=== PATIENT | female | born 1945 | race Caucasian/White ===

== ENCOUNTER 2018-01-27 23:27 | Observation (INO) | payer OTHER ==
[2018-01-28] MEDS ORDERED: ASPIRIN 81 MG CHEWABLE TABLETS PO ONE (00:01)
--- NOTE | 2018-01-28 00:14 | PDOC ---
History of Present Illness - General Chief Complaint: Chest Pain Stated Complaint: CHEST PAIN Time Seen by Provider: 01/27/18 23:47 History Source: Patient - History of Present Illness Initial Comments: 01/28/18 00:16 72 year old female with 2 episode of sharp chest pain today. reports slight nausea. denies weakness, dizziness, vomiting, abdominal pain, urinary symptoms fever/ chills. denies previous cardiac work ups Pmhx: HTN, DM, hypothyroidism, hypercholestremia. PMD: Dr. gar ( [place]) Past History - Past Medical History Allergies/Adverse Reactions: Allergies Allergy/AdvReac Type Severity Reaction Status Date / Time No Known Allergies Allergy Verified 01/28/18 00:13 Home Medications: Ambulatory Orders Apixaban [Eliquis] 5 mg PO BID 30 Days #60 tablet 01/28/18 Aspirin [ASA -] 81 mg PO DAILY 01/28/18 Gabapentin [Neurontin] 300 mg PO BID 01/28/18 Insulin Lispro [Humalog] 40 unit SQ DAILY 01/28/18 Levothyroxine Sodium [Synthroid] 75 mcg PO DAILY 01/28/18 Metoprolol Tartrate 50 mg PO BID 30 Days #60 tablet 01/28/18 Omeprazole 20 mg PO BID 01/28/18 Ramipril 5 mg PO DAILY 01/28/18 Simvastatin [Zocor -] 40 mg PO HS 01/28/18 Other medical history: EDVIN: 2010 Review of Systems - Review of Systems Able to Perform ROS?: Yes Is the patient limited Bulgarian proficient: No Constitutional: No: Symptoms Reported, See HPI, Chills, Diaphoresis, Fever, Loss of Appetite, Malaise, Night Sweats, Weakness, Weight Stable, Unintentional Wgt. Loss, Unexplained wgt Loss, Other Respiratory: No: Symptoms reported, See HPI, Cough, Orthopnea, Shortness of Breath, SOB with Exertion, SOB at Rest, Stridor, Wheezing, Productive cough, Hemoptysis, Other Cardiac (ROS): Yes: Chest Pain. No: Symptoms Reported, See HPI, Edema, Irregular Heart Rate, Lightheadedness, Palpitations, Syncope, Chest Tightness, Other ABD/GI: Yes: Nausea. No: Symptoms Reported, See HPI, Abdominal Distended, Abd. Pain w/ defecation, Blood Streaked Bowels, Constipated, Diarrhea, Difficulty Swallowing, Poor Appetite, Poor Fluid Intake, Rectal Bleeding, Vomiting, Indigestion, Abdominal cramping, Tarry Stools, Other Neurological: No: Symptoms reported, See HPI, Headache, Numbness, Paresthesia, Pre-Existing Deficit, Seizure, Tingling, Tremors, Weakness, Unsteady Gait, Ataxia, Dizziness, Other *Physical Exam - Vital Signs Last Vital Signs Temp Pulse Resp BP Pulse Ox 98.1 F 83 18 130/73 100 01/28/18 06:29 01/28/18 17:22 01/28/18 17:22 01/28/18 17:22 01/28/18 17:22 - Physical Exam General Appearance: Yes: Appropriately Dressed Respiratory/Chest: positive: Lungs Clear, Normal Breath Sounds Cardiovascular: positive: Regular Rhythm, Regular Rate Heart Score/ECG Review - History History: Slightly suspicious - Electrocardiogram EKG: Non specific repolarization disturbance - Age Age: >/= 65 - Risk Factors Risk Factors Heart Score: Yes Hx Hypertension, Yes Hx Diabetes Based on the list above the patient has:: 1-2 risk factors - Troponin Troponin: </= normal limit - Score Heart Score - Total: 4 - ECG Intrepretation Rhythm: Regular Rhythm Comment:: 01/28/18 00:27 Sinus rhythm with marked sinus arrythmia; nonspecific ST abnormality ED Treatment Course - LABORATORY CBC & Chemistry Diagram: 01/28/18 00:27 01/28/18 06:00 - ADDITIONAL ORDERS Additional order review: 01/28/18 01/28/18 00:27 00:18 RBC 4.51 MCV 83.8 MCHC 35.7 RDW 13.7 MPV 9.0 Neutrophils % 72.9 Lymphocytes % 18.2 Monocytes % 7.9 Eosinophils % 0.6 Basophils % 0.4 POC Glucometer [id number] - RADIOLOGY Radiology Studies Ordered: Category Date Time Status CHEST PA & LAT [RAD] Stat Radiology 01/28/18 00:01 Completed - Medications Given in the ED: ED Medications Discontinued Medications Generic Name Dose Route Start Last Admin Trade Name Freq PRN Reason Stop Dose Admin Aspirin 162 mg 01/28/18 00:01 01/28/18 00:14 Asa - PO 01/28/18 00:02 162 mg ONCE ONE Administration Heparin Sodium (Porcine) 5,000 unit 01/28/18 06:00 01/28/18 14:08 Heparin - SQ Not Given TID [facility] Insulin Aspart 1 vial 01/28/18 07:00 01/28/18 13:36 Novolog Vial Sliding Scale - SQ Not Given ACHS [facility] Protocol Regadenoson 0.4 mg 01/28/18 11:00 01/28/18 12:35 Lexiscan IVPUSH 01/28/18 11:01 Not Given ONCE ONE Medical Decision Making - Medical Decision Making 01/28/18 00:27 A: chest pain P' cbc cmp EKG chest xray Heart score 4. will place patient in observation 01/28/18 01:35 01/28/18 02:[address] Catalan / Dr. poe *DC/Admit/Observation/Transfer Diagnosis at time of Disposition: Chest pain Qualifiers: Chest pain type: unspecified Qualified Code(s): R07.9 - Chest pain, unspecified - Discharge Dispostion Condition at time of disposition: Stable Decision to Admit order: Yes - Prescriptions - Referrals - Patient Instructions - Post Discharge Activity
[2018-01-28 00:42] LABS: BASO % 0.4 % (0-2.0); EOS % 0.6 % (0-4.5); HEMATOCRIT 37.8 % (32.4-45.2); HEMOGLOBIN 13.5 GM/dL (10.7-15.3); LYMPH % 18.2 % (8-40); MCH 29.9 pg (25.7-33.7); MCHC 35.7 g/dl (32.0-36.0); MEAN CELL VOLUME 83.8 fl (80-96); MONO % 7.9 % (3.8-10.2); NEUT % 72.9 % (42.8-82.8); PLATELET COUNT 197 K/MM3 (134-434); RBC 4.51 M/mm3 (3.60-5.2); RDW 13.7 % (11.6-15.6); WHITE BLOOD COUNT 7.6 K/mm3 (4.0-10.0)
[2018-01-28 00:57] LABS: INR 0.94 (0.83-1.09); PROTHROMBIN TIME (PATIENT) 11.1 SEC (9.7-13.0)
[2018-01-28 01:09] LABS: ALBUMIN 3.9 g/dl (3.4-5.0); ALK PHOS 115 U/L (45-117); ANION GAP 7 MMOL/L (8-16); BILIRUBIN,TOTAL 0.4 mg/dL (0.2-1); BLOOD UREA NITROGEN 29 mg/dL (7-18); CALCIUM 9.2 mg/dL (8.5-10.1); CHLORIDE 101 mmol/L (98-107); CO2 28 mmol/L (21-32); CREATININE 1.4 mg/dL (0.55-1.3); GLUCOSE,RANDOM 126 mg/dL (74-106); MAGNESIUM 2.2 mg/dL (1.8-2.4); N-TERMINAL BNP 243.6 pg/ml (5-125); POTASSIUM 4.4 mmol/L (3.5-5.1); SGOT/AST 23 U/L (15-37); SGPT/ALT 35 U/L (13-61); SODIUM 136 mmol/L (136-145); TOT PROT 7.7 g/dl (6.4-8.2)
--- NOTE | 2018-01-28 01:59 | PN ---
Teaching Attending Note Name of Resident: Demetrio Spence ATTENDING PHYSICIAN STATEMENT I saw and evaluated the patient. I reviewed the resident's note and discussed the case with the resident. I agree with the resident's findings and plan as documented. SUBJECTIVE: Patient is a 72 year old woman with PMH of HTN, DM, hypothyroidism, hypercholestremia who presents after 2 episodes of sharp chest pain today. Reports slight nausea. Denies weakness, dizziness, vomiting, abdominal pain, urinary symptoms, fever or chills. No previous cardiac work up. OBJECTIVE: Alert Vital Signs Period Temp Pulse Resp BP Sys/Page Pulse Ox Last 24 Hr 97.9 F 84 18 146/91 99 HEENT: No Jaundice, eye redness or discharge, PERRLA, EOMI. Normocephalic, atraumatic. External ears are normal and hearing is grossly intact. No nasal discharge. Neck: Supple, nontender. No palpable adenopathy or thyromegaly. No JVD Chest: Good effort. Clear to auscultation and percussion. Heart: Regular. No S3, rub or murmur Abdomen: Not distended, soft, nontender and no HSM. No rebound or guarding. Normoactive bowel sounds. Ext: Peripheral pulses intact. No leg edema. Skin: Warm and dry. No petechiae, rash or ecchymosis. Neuro: Alert. Oriented x3. CN 2-12 grossly intact. Sensation grossly intact in all four extremities and DTR are symmetric. Abnormal Lab Results 01/28/18 00:27 Anion Gap 7 L BUN 29 H Creatinine 1.4 H Random Glucose 126 H Creatine Kinase 408 H CK-MB (CK-2) 10.4 H B-Natriuretic Peptide 243.6 H ASSESSMENT AND PLAN: 1. Chest pain - Pain is atypical but she has risk factors for CAD. Now painfree and got Aspirin in the ER. Initial troponin is negative an EKG show nonspecific ST-T wave changes. No acute pathology on CXR. Admit to telemetry to rule out ACS , get ECHO, fasting lipids and cardiology consult. 2. DM - We will hold the home diabetes drugs and implement sliding scale insulin regimen. Provide comprehensive diabetes care with patient teaching and counseling about the importance of euglycemia, eye care and foot care. 3. EDVIN - Cause unclear. Does not have her medication list. May have rhabdomyolysis. Encourage liberal oral fluids, get Urinalysis and tend CPK. Get medication list from family tomorrow. Avoid nephrotoxic agents such as NSAIDS, aminoglycosides, contrast dyes and certain Alternative medicine products. 4. Obesity - Will provide patient all the necessary assistance , counseling and positive reinforcement to facilitate weight loss. Consult ballet soloist. 5. DVT prophylaxis - Heparin 5000u sq tid. 6. Advance directives - Full code
--- NOTE | 2018-01-28 02:46 | HP ---
CHIEF COMPLAINT: chest pain PCP: Dr. Benjamin ([place]) HISTORY OF PRESENT ILLNESS: Patient is a 72 y/o F w/ PMHx HTN, DM, hypothyroidism, HLD p/w 2 episodes of sharp chest pain lasting "2 seconds" each, by 10 minutes, without radiation, not associated with breathing, no nausea, no diaphoresis. Denies weakness, dizziness, palpitations, abd pain, dysuria, f/c, n/v/c/d. Received ASA in ED. Not in any pain currently. 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 No ischemic changes on EKG, initial trop negative, elevated CK and CKMB, mildly elevated BNP, EDVIN vs CKD (BUN/CR 29/1.4, no known baseline), no UA obtained as yet, otherwise initial labs wnl. ER course was notable for: (1) EKG sinus w/o ischemic changes, trop neg x 1 (2) Cr 1.4 (3) CK 408 Recent Travel: PAST MEDICAL HISTORY: As per HPI PAST SURGICAL HISTORY: Social History: Smoking: Alcohol: Drugs: Family History: Allergies No Known Allergies Allergy (Verified 01/28/18 00:13) HOME MEDICATIONS: List provided by daughter at bedside, dosages (apart from ASA 81) unknown: ASA 81 Synthroid Simvastatin Metoprolol Ramipril Omeprazole Lantus Novolog Vitamin D Pharmacy is [facility] at [address] [place] [address]. Home Medications Medication Instructions Recorded Aspirin [Aspirin EC] 81 mg PO DAILY 01/28/18 REVIEW OF SYSTEMS as per [facility] PHYSICAL EXAMINATION Vital Signs - 24 hr 01/27/18 23:27 Temperature 97.9 F Pulse Rate 84 Respiratory 18 Rate Blood Pressure 146/91 O2 Sat by Pulse 99 Oximetry (%) GENERAL: A&O x 3, NAD HEAD: NC/AT EYES: PERRLA, EOMI EARS, NOSE, THROAT: Moist mucous membranes. NECK: Normal range of motion, supple without lymphadenopathy, JVD, or masses. LUNGS: CTA b/l HEART: RRR no m/r/g, no reproducible chest well tenderness ABDOMEN: +bs, soft, NT, ND MUSCULOSKELETAL: complains of chronic diffuse joint tenderness UPPER EXTREMITIES: 2+ pulses, warm, well-perfused. No cyanosis. No clubbing. No peripheral edema. LOWER EXTREMITIES: 2+ pulses, warm, well-perfused. No calf tenderness. No peripheral edema. 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 Good eye contact. Appropriate mood and affect. SKIN: Warm, dry, normal turgor, no rashes or lesions noted, normal capillary refill. Laboratory Results - last 24 hr 01/28/18 01/28/18 01/28/18 00:18 00:27 00:27 WBC 7.6 RBC 4.51 Hgb 13.5 Hct 37.8 MCV 83.8 MCH 29.9 MCHC 35.7 RDW 13.7 Plt Count 197 MPV 9.0 Absolute Neuts (auto) 5.5 Neutrophils % 72.9 Lymphocytes % 18.2 Monocytes % 7.9 Eosinophils % 0.6 Basophils % 0.4 Nucleated RBC % 0 PT with INR 11.10 INR 0.94 Sodium Potassium Chloride Carbon Dioxide Anion Gap BUN Creatinine Creat Clearance w eGFR POC Glucometer 142.48500 Random Glucose Calcium Magnesium Total Bilirubin AST ALT Alkaline Phosphatase Creatine Kinase Creatine Kinase Index CK-MB (CK-2) Troponin I B-Natriuretic Peptide Total Protein Albumin 01/28/18 00:27 WBC RBC Hgb Hct MCV MCH MCHC RDW Plt Count MPV Absolute Neuts (auto) Neutrophils % Lymphocytes % Monocytes % Eosinophils % Basophils % Nucleated RBC % PT with INR INR Sodium 136 Potassium 4.4 Chloride 101 Carbon Dioxide 28 Anion Gap 7 L BUN 29 H Creatinine 1.4 H Creat Clearance w eGFR 36.86 POC Glucometer Random Glucose 126 H Calcium 9.2 Magnesium 2.2 Total Bilirubin 0.4 AST 23 ALT 35 Alkaline Phosphatase 115 Creatine Kinase 408 H Creatine Kinase Index 2.5 CK-MB (CK-2) 10.4 H Troponin I < 0.02 B-Natriuretic Peptide 243.6 H Total Protein 7.7 Albumin 3.9 ASSESSMENT/PLAN: 72 y/o F w/ PMHx HTN, DM, hypothyroidism, HLD p/w 2 episodes of sharp chest pain lasting "2 seconds" each #r/o ACS -trend troponins q6h -repeat EKG in AM -echo -fasting lipid -will need outpt cardiology f/u, inpt cards consult if stay is extended #EDVIN vs CKD -elevated Cr and CPK possibly suggestive of rhabdo; Pt does take statin -repeat BMP in AM -encourage oral hydration -stat UA #DM -BGM ACHS -SSI #HTN -obtain home med records and restart #hypothyroidism -obtain home synthroid dosage and restart #HLD -hold statins -fasting lipids #FEN -no IVF -repeat BMP in AM -NPO pending lipid panel, encourage oral hydration, then advance diet to cardiac #PPx -DVT: heparin subq -GI: not indicated #code -full #dispo -admit to tele-obs Visit type - Emergency Visit Emergency Visit: Yes Care time: The patient presented to the Emergency Department on the above date and was hospitalized for further evaluation of their emergent condition. - New Patient This patient is new to me today: Yes Date on this admission: 01/28/18 - Critical Care Critical Care patient: No
[2018-01-28] MEDS: HEPARIN NA (PORCINE) 5,000 UNITS/ML 1ML VIAL SQ SCH ×3 (02:49→14:08)
[2018-01-28 04:25] LABS: URINE APPEARANCE CLEAR; URINE BILIRUBIN NEGATIVE (<2.0 mg/dL); URINE COLOR STRAW; URINE GLUCOSE (UA) NEGATIVE (NEGATIVE); URINE KETONE NEGATIVE (NEGATIVE); URINE LEUK ESTERASE NEGATIVE (NEGATIVE); URINE NITRITE NEGATIVE (NEGATIVE); URINE PROTEIN 1+ (NEGATIVE); URINE UROBILINOGEN NEGATIVE mg/dL (0.2-1.0)
[2018-01-28 04:31] LABS: URINE BACTERIA MANY /hpf (NONE SEEN)
[2018-01-28] MEDS ORDERED: HEPARIN NA (PORCINE) 5,000 UNITS/ML 1ML VIAL ONE (06:16)
[2018-01-28 06:30] VITALS: TEMP 98.1
[2018-01-28] MEDS: INSULIN SLIDING SCALE (NOVOLOG) 1 VIAL SQ SCH ×2 (06:31→13:36)
[2018-01-28 07:41] LABS: ANION GAP 8 MMOL/L (8-16); BLOOD UREA NITROGEN 29 mg/dL (7-18); CALCIUM 8.6 mg/dL (8.5-10.1); CHLORIDE 105 mmol/L (98-107); CO2 26 mmol/L (21-32); CREATININE 1.4 mg/dL (0.55-1.3); GLUCOSE,RANDOM 110 mg/dL (74-106); MAGNESIUM 2.1 mg/dL (1.8-2.4); POTASSIUM 4.4 mmol/L (3.5-5.1); SODIUM 139 mmol/L (136-145)
[2018-01-28 08:54] LABS: CHOLESTEROL 165 mg/dL (50-200); HDL CHOLESTEROL 76 mg/dL (40-60); TRIGLYCERIDES 85 mg/dL (0-150)
--- NOTE | 2018-01-28 09:53 | EKG ---
Test Reason : Blood Pressure : / mmHG Vent. Rate : 074 BPM Atrial Rate : 074 BPM P-R Int : 152 ms QRS Dur : 076 ms QT Int : 368 ms P-R-T Axes : 043 010 015 degrees QTc Int : 408 ms SINUS RHYTHM WITH PREMATURE ATRIAL COMPLEXES CANNOT RULE OUT INFERIOR INFARCT , AGE UNDETERMINED NO PREVIOUS ECGS AVAILABLE Confirmed by SANJIV QUIJANO MD ([id number]) on 01/28/2018 9:53:01 AM Referred By: RIP HENRY Confirmed By:SANJIV QUIJANO MD
[2018-01-28] MEDS ORDERED: REGADENOSON 0.4 MG/5 ML PRE-FILLED SYRINGE IVPUSH ONE (11:00)
[2018-01-28] MEDS ORDERED: METOPROLOL TARTRATE 5 MG/5 ML VIAL ONE (11:48)
--- NOTE | 2018-01-28 14:07 | ECHO ---
Name: MARY BETH KING Exam:Adult Echocardiogram Study Date: 01/28/2018 12:54 PM Age: 72 yrs Reason For Study: EVALUATE FOR NEW ONSET ANGINA Height: 60 in Weight: 154 lb BSA: 1.7 m2 MMode/2D Measurements & Calculations IVSd: 0.73 cm Ao root diam: 3.1 cm LVIDd: 4.6 cm LA dimension: 2.9 cm LVIDs: 2.4 cm LVPWd: 1.1 cm IVSs: 1.4 cm LVPWs: 1.2 cm EDV(Teich): 97.0 ml ESV(Teich): 19.8 ml Doppler Measurements & Calculations MV E max cl: 50.1 cm/sec Ao V2 max: 162.9 cm/sec MV A max cl: 96.7 cm/sec Ao max P.6 mmHg MV E/A: 0.52 Ao V2 mean: 112.5 cm/sec Ao mean P.8 mmHg Ao V2 VTI: 31.7 cm TR max cl: 212.8 cm/sec Med Peak E' Cl: 2.5 cm/sec TR max P.1 mmHg Med E/e': 19.9 Lat Peak E' Cl: 3.5 cm/sec Lat E/e': 14.3 Left Ventricle Left ventricular systolic function is normal. The transmitral spectral Doppler flow pattern is sugges tive of impaired LV relaxation. Right Ventricle The right ventricle is grossly normal size. The right ventricular systolic function is grossly normal . Atria Normal left and right atrial size and function. Mitral Valve The mitral valve is normal in structure and function. There is no mitral valve stenosis. Tricuspid Valve The tricuspid valve is normal in structure and function. There is mild tricuspid regurgitation. Right ventricular systolic pressure is normal. Aortic Valve The aortic valve opens well. No hemodynamically significant valvular aortic stenosis. No aortic regur gitation is present. Pulmonic Valve The pulmonic valve is not well seen, but is grossly normal. There is no pulmonic valvular stenosis. T here is no pulmonic valvular regurgitation. Great Vessels The aortic root is normal size. Pericardium/Pleura There is no pericardial effusion. Interpretation Summary Left ventricular systolic function is normal. The transmitral spectral Doppler flow pattern is suggestive of impaired LV relaxation. The right ventricle is grossly normal size. The right ventricular systolic function is grossly normal. There is mild tricuspid regurgitation. Right ventricular systolic pressure is normal. There is no pericardial effusion. MD Jones *[place] 01/28/2018 02:06 PM
--- NOTE | 2018-01-28 16:17 | PN ---
Progress Note (short form) - Note Progress Note: Chief Complaint: Events noted, notes reviewed, chest pain and palpitations, resolved History of Present Illness: Seen and examined on telemetry. Full consult dictated Echocardiography performed earlier today revealed normal LV size and systolic function, LV diastolic dysfunction, mild TR Medications: Current Medications Heparin Sodium (Porcine) (Heparin -) 5,000 unit SQ TID [facility] Last Admin: 01/28/18 14:08 Dose: Not Given Insulin Aspart (Novolog Vial Sliding Scale -) 1 vial SQ ACHS [facility]; Protocol Last Admin: 01/28/18 13:36 Dose: Not Given Review of Systems - Review of Systems Constitutional: no symptoms reported Respiratory: denies Cough or Sputum Production Cardiovascular: as noted above Gastrointestinal: denies Nausea, Vomiting, Diarrhea, Constipation or Abdominal Pain Genitourinary: no symptoms reported Musculoskeletal: no symptoms reported Endocrine: no symptoms reported Vital Signs: Last Vital Signs Temp Pulse Resp BP Pulse Ox 98.1 F 71 20 115/58 L 98 01/28/18 06:29 01/28/18 13:48 01/28/18 13:48 01/28/18 13:48 01/28/18 13:48 Intake & Output 01/25/18 01/26/18 01/27/18 01/28/18 23:59 23:59 23:59 23:59 Weight 154 lb Neck: Supple Negative JVD Respiratory: Clear to A&P Bilaterally Cardiovascular: S1 S2 Regular Rate and Rhythm Grade 1-2/6 MARINO Gastrointestinal: Soft Benign Normal Bowel Sounds Ext: Negative Edema Labs: Troponin, BNP 01/28/18 01/28/18 00:27 06:00 Troponin I < 0.02 < 0.02 B-Natriuretic Peptide 243.6 H CBC, BMP 01/28/18 00:27 01/28/18 06:00 Hepatic Panel Total Bilirubin 0.4 mg/dL (0.2-1) 01/28/18 00:27 AST 23 U/L (15-37) 01/28/18 00:27 ALT 35 U/L (13-61) 01/28/18 00:27 Alkaline Phosphatase 115 U/L (45-117) 01/28/18 00:27 Albumin 3.9 g/dl (3.4-5.0) 01/28/18 00:27 INR, PTT INR 0.94 (0.83-1.09) 01/28/18 00:27 Assessment/Plan ASSESSMENT: 1. Chest pain syndrome 2. CAD post IA angina pectoris 3. HTN/HCVD, hypertensive urgency probably precipitated by dietary non compliance 4. DM 5. Hypercholesterolemia 6. COPD with acute excerbation 7. CKD with Hyperkalemia 8. Anemia PLAN: 1. IV Lasix and titrate dosage with close monitoring of renal function and electrolytes 2. Add Coreg and D/C Lopressor 3. Continue Norvasc 4. Ideally should be on ACEI or ARBS pending renal function recovery if not contraindicated 5. Taper off IV Nitro and initiate Imdur 6. Continue Lipitor 7. Additional cardiovascular evaluation including MPI study as outpatient unless clinical syndrome is persistent Brendan Marshall M.D.
--- NOTE | 2018-01-28 17:10 | DS ---
Physical Exam: SUBJECTIVE: Patient seen and examined at bedside- no acute events overnight patient is no longer having chest pain and is feeling good, she denies any CP/ SOB/N/V fevers or chills. OBJECTIVE: Vital Signs Period Temp Pulse Resp BP Sys/Page Pulse Ox Last 24 Hr 97.9 F-98.1 F 65-84 18-20 103-146/57-91 98-100 PHYSICAL EXAM GENERAL: The patient is awake, alert, and fully oriented, in no acute distress. HEAD: Normal with no signs of trauma. EYES: PERRL, extraocular movements intact, sclera anicteric, conjunctiva clear. ENT: Ears normal, nares patent, oropharynx clear without exudates, moist mucous membranes. NECK: Trachea midline, full range of motion, supple. LUNGS: Breath sounds equal, clear to auscultation bilaterally, no wheezes, no crackles, no accessory muscle use. HEART: Regular rate and rhythm, S1, S2 without murmur, rub or gallop. ABDOMEN: Soft, nontender, nondistended, normoactive bowel sounds, no guarding, no rebound, no hepatosplenomegaly, no masses. EXTREMITIES: 2+ pulses, warm, well-perfused, no edema. NEUROLOGICAL: Cranial nerves II through XII grossly intact. Normal speech, gait not observed. PSYCH: Normal mood, normal affect. SKIN: Warm, dry, normal turgor, no rashes or lesions noted. LABS Laboratory Results - last 24 hr 01/28/18 01/28/18 01/28/18 00:18 00:27 00:27 WBC 7.6 RBC 4.51 Hgb 13.5 Hct 37.8 MCV 83.8 MCH 29.9 MCHC 35.7 RDW 13.7 Plt Count 197 MPV 9.0 Absolute Neuts (auto) 5.5 Neutrophils % 72.9 Lymphocytes % 18.2 Monocytes % 7.9 Eosinophils % 0.6 Basophils % 0.4 Nucleated RBC % 0 PT with INR 11.10 INR 0.94 Sodium Potassium Chloride Carbon Dioxide Anion Gap BUN Creatinine Creat Clearance w eGFR POC Glucometer 142.05042 Random Glucose Calcium Phosphorus Magnesium Total Bilirubin AST ALT Alkaline Phosphatase Creatine Kinase Creatine Kinase Index CK-MB (CK-2) Troponin I B-Natriuretic Peptide Total Protein Albumin Triglycerides Cholesterol Total LDL Cholesterol HDL Cholesterol Urine Color Urine Appearance Urine pH Ur Specific [place] Urine Protein Urine Glucose (UA) Urine Ketones Urine Blood Urine Nitrite Urine Bilirubin Urine Urobilinogen Ur Leukocyte Esterase Urine WBC (Auto) Urine RBC (Auto) Urine Bacteria 01/28/18 01/28/18 01/28/18 00:27 04:13 06:00 WBC RBC Hgb Hct MCV MCH MCHC RDW Plt Count MPV Absolute Neuts (auto) Neutrophils % Lymphocytes % Monocytes % Eosinophils % Basophils % Nucleated RBC % PT with INR INR Sodium 136 139 Potassium 4.4 4.4 Chloride 101 105 Carbon Dioxide 28 26 Anion Gap 7 L 8 BUN 29 H 29 H Creatinine 1.4 H 1.4 H Creat Clearance w eGFR 36.86 36.86 POC Glucometer Random Glucose 126 H 110 H Calcium 9.2 8.6 Phosphorus 4.0 Magnesium 2.2 2.1 Total Bilirubin 0.4 AST 23 ALT 35 Alkaline Phosphatase 115 Creatine Kinase 408 H Creatine Kinase Index 2.5 CK-MB (CK-2) 10.4 H Troponin I < 0.02 < 0.02 B-Natriuretic Peptide 243.6 H Total Protein 7.7 Albumin 3.9 Triglycerides 85 Cholesterol 165 Total LDL Cholesterol 67 HDL Cholesterol 76 H Urine Color Straw Urine Appearance Clear Urine pH 6.0 Ur Specific [place] 1.004 L Urine Protein 1+ H Urine Glucose (UA) Negative Urine Ketones Negative Urine Blood Negative Urine Nitrite Negative Urine Bilirubin Negative Urine Urobilinogen Negative Ur Leukocyte Esterase Negative Urine WBC (Auto) 1 Urine RBC (Auto) None Urine Bacteria Many 01/28/18 01/28/18 06:26 13:31 WBC RBC Hgb Hct MCV MCH MCHC RDW Plt Count MPV Absolute Neuts (auto) Neutrophils % Lymphocytes % Monocytes % Eosinophils % Basophils % Nucleated RBC % PT with INR INR Sodium Potassium Chloride Carbon Dioxide Anion Gap BUN Creatinine Creat Clearance w eGFR POC Glucometer 129.31251 119.94001 Random Glucose Calcium Phosphorus Magnesium Total Bilirubin AST ALT Alkaline Phosphatase Creatine Kinase Creatine Kinase Index CK-MB (CK-2) Troponin I B-Natriuretic Peptide Total Protein Albumin Triglycerides Cholesterol Total LDL Cholesterol HDL Cholesterol Urine Color Urine Appearance Urine pH Ur Specific [place] Urine Protein Urine Glucose (UA) Urine Ketones Urine Blood Urine Nitrite Urine Bilirubin Urine Urobilinogen Ur Leukocyte Esterase Urine WBC (Auto) Urine RBC (Auto) Urine Bacteria HOSPITAL COURSE: Date of Admission:01/28/18 72 y/o female with PMH of HTN, HLD< DM, hypothyroidism, CAD presented to the ED with two episodes of chest pain each lasting a few seconds- she had never experienced any pain like this before. she wasn't exerting herself; the pain just came on suddenly but did not radiate so she came to the ER. by the time she got to the ER it had resolved. she was given aspirin. she underwent an exercise stress tets where she had several episodes of paraoxysmal afib with RVR , of which she does not have a known history of. she was seen by [facility] sewer who suggested to increase her metoprolool tartrate to 50 BID to continue with her norvasc and to start eliwuis 5mg BID. with strict follow up as an outpatient Date of Discharge: 01/28/18 Minutes to complete discharge: 39 Discharge Summary Reason For Visit: CHEST PAIN Current Active Problems Afib (Acute) Chest pain (Acute) Condition: Stable - Instructions Diet, Activity, Other Instructions: You came to the emergency room for chest pain and underwent a stress test where you were shown to have an abnormal heart rhythm, called atrial fibrillation. You were seen here by a leno sewer who added a blood thinner, called eliquis 5 mg twice a day to your medication regimen as having atrial fibrillation can increase your chance of having clots and a stroke. He also increased your metoprolol dosing to 50mg twice a day. Following changes have been made in your medication: -New medication Eliquis 5 mg twice daily -Your metropolol is increased to 50 mg twice a day -Stop your medication amlodipine till seen by your doctor. Referrals: -we advise that you follow up with your primary care physician, Dr. Villeda within one week -we advise that you follow up with the leno sewer, Dr. Aldridge within one week -Blood work BMP (basic metabolic panel) in 1 week with your doctor. -Thyroid testing with your doctor in 1 week -Home BP monitoring daily till next doctor visit and notify doctor if SBP ( upper BP) <100 or any dizziness or persistently < 135 noted. Please note that you are being started on blood thinner eliquis per cardiology recommendations. It increases risk of bleeding. So ensure to avoid cuts and scrapes and watch for any bleeding that does not stop or new dark stools or concerns. Your doctors need to be informed if you are planned for any procedures. *if you begin to experience any dizziness, chest pain, palpitations, shortness of breath, fevers, vomiting or any new concerns please call 911 or return to the emergency room immediately. Referrals: Brendan Marshall MD [Staff Physician] - 1 Week Luis Angel Villeda MD [Non Staff, Medical] - 1 Week Disposition: HOME - Home Medications Comprehensive Discharge Medication List: Ambulatory Orders Apixaban [Eliquis] 5 mg PO BID 30 Days #60 tablet 01/28/18 Aspirin [ASA -] 81 mg PO DAILY 01/28/18 Gabapentin [Neurontin] 300 mg PO BID 01/28/18 Insulin Lispro [Humalog] 40 unit SQ DAILY 01/28/18 Levothyroxine Sodium [Synthroid] 75 mcg PO DAILY 01/28/18 Metoprolol Tartrate 50 mg PO BID 30 Days #60 tablet 01/28/18 Omeprazole 20 mg PO BID 01/28/18 Ramipril 5 mg PO DAILY 01/28/18 Simvastatin [Zocor -] 40 mg PO HS 01/28/18 Problem List - Problems (1) Afib Code(s): I48.91 - UNSPECIFIED ATRIAL FIBRILLATION (2) Chest pain Code(s): R07.9 - CHEST PAIN, UNSPECIFIED Qualifiers: Chest pain type: unspecified Qualified Code(s): R07.9 - Chest pain, unspecified This patient is new to me today: No Emergency Visit: Yes ED Registration Date: 01/28/18 Care time: The patient presented to the Emergency Department on the above date and was hospitalized for further evaluation of their emergent condition. Critical Care patient: No - Discharge Referral Referred to [facility] No
--- NOTE | 2018-01-28 17:12 | PN ---
Teaching Attending Note Name of Resident: Karina Robbins ATTENDING PHYSICIAN STATEMENT I saw and evaluated the patient. I reviewed the resident's note and discussed the case with the resident. I agree with the resident's findings and plan as documented with exceptions below. SUBJECTIVE: Patient seen and examined. NO chest pain, dyspnea or new concerns, overall feels well. OBJECTIVE: Vital Signs Period Temp Pulse Resp BP Sys/Page Pulse Ox Last 24 Hr 97.9 F-98.1 F 65-84 18-20 103-146/57-91 98-100 Intake & Output 01/25/18 01/26/18 01/27/18 01/28/18 23:59 23:59 23:59 23:59 Weight 154 lb General: lying in bed in no acute distress Chest: CTAB, no rales or wheezing Abdomen:Soft, NT, ND, positive bowel sounds Extremities: edema Home Medications Medication Instructions Recorded Apixaban [Eliquis] 5 mg PO BID 30 Days #60 tablet 01/28/18 Aspirin [ASA -] 81 mg PO DAILY 01/28/18 Gabapentin [Neurontin] 300 mg PO BID 01/28/18 Insulin Lispro [Humalog] 40 unit SQ DAILY 01/28/18 Levothyroxine Sodium [Synthroid] 75 mcg PO DAILY 01/28/18 Metoprolol Tartrate 50 mg PO BID 30 Days #60 tablet 01/28/18 Omeprazole 20 mg PO BID 01/28/18 Ramipril 5 mg PO DAILY 01/28/18 Simvastatin [Zocor -] 40 mg PO HS 01/28/18 Active Medications Heparin Sodium (Porcine) (Heparin -) 5,000 unit SQ TID [facility] Last Admin: 01/28/18 14:08 Dose: Not Given Insulin Aspart (Novolog Vial Sliding Scale -) 1 vial SQ [facility]; Protocol Last Admin: 01/28/18 13:36 Dose: Not Given Laboratory Results - last 24 hr 01/28/18 01/28/18 01/28/18 00:18 00:27 00:27 WBC 7.6 RBC 4.51 Hgb 13.5 Hct 37.8 MCV 83.8 MCH 29.9 MCHC 35.7 RDW 13.7 Plt Count 197 MPV 9.0 Absolute Neuts (auto) 5.5 Neutrophils % 72.9 Lymphocytes % 18.2 Monocytes % 7.9 Eosinophils % 0.6 Basophils % 0.4 Nucleated RBC % 0 PT with INR 11.10 INR 0.94 Sodium Potassium Chloride Carbon Dioxide Anion Gap BUN Creatinine Creat Clearance w eGFR POC Glucometer 142.39630 Random Glucose Calcium Phosphorus Magnesium Total Bilirubin AST ALT Alkaline Phosphatase Creatine Kinase Creatine Kinase Index CK-MB (CK-2) Troponin I B-Natriuretic Peptide Total Protein Albumin Triglycerides Cholesterol Total LDL Cholesterol HDL Cholesterol Urine Color Urine Appearance Urine pH Ur Specific [place] Urine Protein Urine Glucose (UA) Urine Ketones Urine Blood Urine Nitrite Urine Bilirubin Urine Urobilinogen Ur Leukocyte Esterase Urine WBC (Auto) Urine RBC (Auto) Urine Bacteria 01/28/18 01/28/18 01/28/18 00:27 04:13 06:00 WBC RBC Hgb Hct MCV MCH MCHC RDW Plt Count MPV Absolute Neuts (auto) Neutrophils % Lymphocytes % Monocytes % Eosinophils % Basophils % Nucleated RBC % PT with INR INR Sodium 136 139 Potassium 4.4 4.4 Chloride 101 105 Carbon Dioxide 28 26 Anion Gap 7 L 8 BUN 29 H 29 H Creatinine 1.4 H 1.4 H Creat Clearance w eGFR 36.86 36.86 POC Glucometer Random Glucose 126 H 110 H Calcium 9.2 8.6 Phosphorus 4.0 Magnesium 2.2 2.1 Total Bilirubin 0.4 AST 23 ALT 35 Alkaline Phosphatase 115 Creatine Kinase 408 H Creatine Kinase Index 2.5 CK-MB (CK-2) 10.4 H Troponin I < 0.02 < 0.02 B-Natriuretic Peptide 243.6 H Total Protein 7.7 Albumin 3.9 Triglycerides 85 Cholesterol 165 Total LDL Cholesterol 67 HDL Cholesterol 76 H Urine Color Straw Urine Appearance Clear Urine pH 6.0 Ur Specific [place] 1.004 L Urine Protein 1+ H Urine Glucose (UA) Negative Urine Ketones Negative Urine Blood Negative Urine Nitrite Negative Urine Bilirubin Negative Urine Urobilinogen Negative Ur Leukocyte Esterase Negative Urine WBC (Auto) 1 Urine RBC (Auto) None Urine Bacteria Many 01/28/18 01/28/18 06:26 13:31 WBC RBC Hgb Hct MCV MCH MCHC RDW Plt Count MPV Absolute Neuts (auto) Neutrophils % Lymphocytes % Monocytes % Eosinophils % Basophils % Nucleated RBC % PT with INR INR Sodium Potassium Chloride Carbon Dioxide Anion Gap BUN Creatinine Creat Clearance w eGFR POC Glucometer 129.29135 119.63403 Random Glucose Calcium Phosphorus Magnesium Total Bilirubin AST ALT Alkaline Phosphatase Creatine Kinase Creatine Kinase Index CK-MB (CK-2) Troponin I B-Natriuretic Peptide Total Protein Albumin Triglycerides Cholesterol Total LDL Cholesterol HDL Cholesterol Urine Color Urine Appearance Urine pH Ur Specific [place] Urine Protein Urine Glucose (UA) Urine Ketones Urine Blood Urine Nitrite Urine Bilirubin Urine Urobilinogen Ur Leukocyte Esterase Urine WBC (Auto) Urine RBC (Auto) Urine Bacteria 2D echo and stress test results noted ASSESSMENT AND PLAN: 72 yof with PMHx of HTN, DM, hypothyroidism, HLD admitted with atypical chest pain, found with paroxysmal rapid afib during stress test now back in sinus rhythm -Atypical chest pain -Paroxysmal new onset Afib with RVR during stress test, now in NSR -HTN -IDDM -Hypothyroidism -HLD Plan: Currently [facility]. Cardiology input appreciated Start eliquis. Increase lopressor to 50 mg BID Continue ramipril as discussed with Dr. Aldridge. Hold [facility] on d/c for now. Discussed with daughter at bedside in detail, about medication changes, eliquis and need for outpatient cardiology follow up. d/c home today.
[2018-01-28 17:29] VITALS: BP 130/73; PULSE 83
--- NOTE | 2018-01-28 18:25 | CONS ---
DATE OF CONSULTATION: 01/28/2018 REQUESTING [employer]: Hospitalist service CHIEF COMPLAINT: Chest pain, evaluation of cardiac arrhythmia. INFORMANT: History was obtained from the patient. Her daughter was in attendance at the bedside. HISTORY OF PRESENT ILLNESS: A 72-year-old female of descent with known history of probable diastolic left ventricular dysfunction with clinical class 0 [place] [employer] classification left ventricular failure, hypertensive cardiovascular disease, diabetes mellitus, hypercholesterolemia, chronic kidney disease, who was in her usual state of health until presenting to [facility] emergency room yesterday with sudden onset of palpitations with associated intermittent chest discomfort which was described as sharp pain. Palpitations were described as rapid heart beat. Chest discomfort subsided spontaneously within a few seconds. Patient denied any associated dyspnea. Patient does not report any history of orthopnea, paroxysmal nocturnal dyspnea, or peripheral edema. Patient denied any dizziness, lightheadedness, or syncope. Upon evaluation in the emergency room, patient was noted to have a normal electrocardiogram with negative cardiac biochemical markers. Echocardiography was recommended and was performed which revealed normal left ventricular size and systolic function, with evidence of diastolic left ventricular dysfunction, normal right ventricular size and function, mild tricuspid valve regurgitation, and no pericardial effusion. Myocardial perfusion imaging study revealed normal myocardial perfusion scan with normal left ventricular contraction pattern on analysis with calculated left ventricular ejection fraction of 69% with poor exercise tolerance capacity and patient was noted to have evidence of paroxysmal atrial fibrillation with spontaneous conversion to sinus rhythm. Patient currently is symptoms free. PAST MEDICAL HISTORY: Diastolic left ventricular dysfunction with clinical class 0 [place] [employer] classification left ventricular function, hypertensive cardiovascular disease, diabetes mellitus, hypercholesterolemia, chronic kidney disease. SOCIAL HISTORY: Nonsmoker. FAMILY HISTORY: Positive for coronary artery disease. ALLERGIES: None reported. MEDICAL THERAPY: At home included metoprolol 25 mg twice a day, ramipril 5 mg once a day, Norvasc 5 mg once a day, simvastatin 40 mg once a day, insulin as prescribed. REVIEW OF SYSTEMS: Head and neck: Denies headache, photophobia, blurring of vision. Respiratory: Denies cough or sputum production. Cardiovascular: As noted above. Gastrointestinal: Denies nausea, vomiting, diarrhea, abdominal discomfort. Genitourinary: No symptoms reported. Musculoskeletal: History of degenerative joint disease. PHYSICAL EXAMINATION: Vital signs: Blood pressure is 115/58 mmHg, pulse rate is 71 beats per minute. Head/Neck: Pupils equally reactive to light and accommodation. Extraocular muscles are intact. Anicteric sclerae. Negative JVD. No bruit appreciated. Chest: Clear to auscultation and percussion. Cardiovascular: S1, S2 regular. Grade 1/6 systolic ejection murmur. No clicks or gallops. Abdomen: Soft, benign. Normoactive bowel sounds. Extremities: Negative edema. Intact distal pulses. No calf tenderness. Electrocardiogram revealed sinus rhythm with nonspecific T wave abnormality. Troponin less than 0.02. B-type natriuretic peptide was 243. CBC revealed a white cell count of 10.6, hemoglobin 13.5, platelets 197. Basic metabolic profile revealed a sodium of 139, potassium 4.4, BUN 29, creatinine 1.4, glucose 110. ASSESSMENT: 1. Chest pain syndrome, atypical for coronary artery disease, angina pectoris. 2. Coronary artery disease, angina pectoris to be considered in view of her comorbidity. 3. Diastolic left ventricular dysfunction with clinical class 0 [place] [employer] classification left ventricular failure. 4. Hypertension, hypertensive cardiovascular disease. 5. Diabetes mellitus. 6. Hypercholesterolemia. 7. Chronic kidney disease. RECOMMENDATION: 1. Continuation of Lopressor and titration of dosage to 50 mg twice daily. 2. Discontinuation of Norvasc if confirmed administration. 3. Continuation of Altace, dose can be decreased to 2.5 mg once daily if needed with close monitoring of renal function unless it is absolutely contraindicated. 4. Discontinuation of aspirin therapy and initiation of Eliquis therapy at 5 mg twice daily considering the above noted presentation. 5. Patient can be discharged home from the cardiovascular point of view and follow up in the office for additional outpatient evaluation including extended monitoring. Discussed in detail with the patient and her daughter. Thank you for the kind referral. COOKIE GALAN M.D. BOBBY/[id number]
--- NOTE | 2018-01-29 12:09 | EKG ---
Test Reason : Blood Pressure : / mmHG Vent. Rate : 087 BPM Atrial Rate : 087 BPM P-R Int : 140 ms QRS Dur : 074 ms QT Int : 330 ms P-R-T Axes : 022 006 019 degrees QTc Int : 397 ms POOR DATA QUALITY, INTERPRETATION MAY BE ADVERSELY AFFECTED SINUS RHYTHM WITH PREMATURE ATRIAL BEATS NONSPECIFIC ST ABNORMALITY ABNORMAL ECG NO PREVIOUS ECGS AVAILABLE Confirmed by OTILIO HORTON MD ([id number]) on 01/29/2018 12:09:20 PM Referred By: Confirmed By:OTILIO HORTON MD
== END 2018-01-28 17:22 | disposition home or self-care (01) ==
LOC: JER 23:27 → JERBED 01-28 01:49
PROVIDERS: ADMIT Internal Medicine; ATTEND Hospitalist
DX: R07.89 Other chest pain (principal); I48.0 Paroxysmal atrial fibrillation; E11.9 Type 2 diabetes mellitus without complications; E03.9 Hypothyroidism, unspecified; E78.5 Hyperlipidemia, unspecified; N17.9 Acute kidney failure, unspecified; E66.9 Obesity, unspecified; Z68.30 Body mass index [BMI] 30.0-30.9, adult; Z79.4 Long term (current) use of insulin; I16.0 Hypertensive urgency; E87.5 Hyperkalemia; D64.9 Anemia, unspecified; I11.9 Hypertensive heart disease without heart failure
CPT/HCPCS: 36415; 71046-TC-FY; 78452-TC; 80048; 80053; 80061; 81003; 81015; 82550; 82553; 82962; 83721; 83735; 83880; 84100; 84484; 85025; 85610; 93005; 93010; 93017; 93306-TC; 99284-25; A9502; C1887; G0378; J1644

== ENCOUNTER 2019-10-30 06:29 | Emergency (ER) | payer OTHER ==
[2019-10-30 06:55] VITALS: BMI 29.9
--- NOTE | 2019-10-30 07:27 | PDOC ---
History of Present Illness - General Chief Complaint: Blood Pressure Problem Stated Complaint: HIGH BP Time Seen by Provider: 10/30/19 07:26 History Source: Family Exam Limitations: No Limitations - History of Present Illness Initial Comments: 74F with hx/o HTN, DM, hypothyroidism, CKD, Afib on Eliquis presents to the ED for elevated blood pressure. Pt is [place] speaking and pt's daughter is translating. She states that her BP systolic is normally 140-150, and regularly checks BP at home and noted it was elevated this AM. She did not take her home meds this morning. Pt had no complaints and denied fever, HERNADEZ, syncope, dizziness, CP, SOB. Reported nausea w/o vomiting that has since improved. PMH: as in HPI SH: none Meds: as in chart Allergies: Tob/Etoh/Rec drugs: negative x3 PCP: Supervisor Plate Pasting: pt's daughter ROS GENERAL/CONSTITUTIONAL: No fever or chills. No weakness. HEENT: No change in vision. No ear pain or discharge. No sore throat. CARDIOVASCULAR: No chest pain or shortness of breath RESPIRATORY: No cough, wheezing, or hemoptysis. GASTROINTESTINAL: No nausea, vomiting, diarrhea or constipation. GENITOURINARY: No dysuria, frequency, or change in urination. MUSCULOSKELETAL: No joint or muscle swelling or pain. No neck or back pain. SKIN: No rash NEUROLOGIC: No headache, vertigo, loss of consciousness, or change in strength/sensation. ENDOCRINE: No increased thirst. No abnormal weight change HEMATOLOGIC/LYMPHATIC: No anemia, easy bleeding, or history of blood clots. ALLERGIC/IMMUNOLOGIC: No hives or skin allergy. PE GENERAL: Awake, alert, and fully oriented, in no acute distress HEAD: No signs of trauma, normocephalic, atraumatic EYES: PERRLA, EOMI, sclera anicteric, conjunctiva clear ENT: Auricles normal inspection, hearing grossly normal, nares patent, oropharynx clear without exudates. Moist mucosa NECK: Normal ROM, supple, no lymphadenopathy, JVD, or masses HEART: RRR with paroxysmal Afib, normal S1 and S2, no murmurs, rubs or gallops, peripheral pulses normal and equal bilaterally. LUNGS: No distress, speaks full sentences, clear to auscultation bilaterally ABDOMEN: Soft, nontender, normoactive bowel sounds. No guarding, no rebound. No masses EXTREMITIES: Normal inspection, Normal range of motion, no edema. No clubbing o r cyanosis. NEUROLOGICAL: CNII-XII grossly intact. Normal speech, normal gait, no focal sensorimotor deficits SKIN: Warm, Dry, normal turgor, no rashes or lesions noted Assessment and Plan 1. Asymptomatic HTN - home dose metoprolol, recheck BP 2. R/o ACS - Trops + EKG Anson Lambert, PGY1 Emergency Medicine Past History - Medical History Allergies/Adverse Reactions: Allergies Allergy/AdvReac Type Severity Reaction Status Date / Time No Known Allergies Allergy Verified 10/30/19 06:55 Home Medications: Ambulatory Orders Apixaban [Eliquis] 5 mg PO BID 30 Days #60 tablet 01/28/18 Aspirin [ASA -] 81 mg PO DAILY 01/28/18 Gabapentin [Neurontin] 300 mg PO BID 01/28/18 Insulin Lispro [Humalog] 40 unit SQ DAILY 01/28/18 Levothyroxine Sodium [Synthroid] 75 mcg PO DAILY 01/28/18 Metoprolol Tartrate 50 mg PO BID 30 Days #60 tablet 01/28/18 Omeprazole 20 mg PO BID 01/28/18 Ramipril 5 mg PO DAILY 01/28/18 Simvastatin [Zocor -] 40 mg PO HS 01/28/18 COPD: No Diabetes: Yes HTN: Yes Hypercholesterolemia: Yes - Immunization History Immunization Up to Date: Yes - Psycho-Social/Smoking History Smoking History: Never smoked Have you smoked in the past 12 months: No Information on smoking cessation initiated: No - Substance Abuse Hx (Audit-C & DAST Scrn) How often the patient has a drink containing alcohol: Never Score: In Men: 4 or > Positive; In Women: 3 or > Positive: 0 Screen Result (Pos requires Nsg. Audit-10AR): Negative In the last yr the pt used illegal drug/Rx for NonMed reason: No Score: Yes response is considered Positive: 0 Screen Result (Positive result requires Nsg. DAST-10): Negative *Physical Exam - Vital Signs Last Vital Signs Temp Pulse Resp BP Pulse Ox 98.8 F 76 14 207/86 H 100 10/30/19 06:53 10/30/19 06:53 10/30/19 06:53 10/30/19 06:53 10/30/19 06:53 ED Treatment Course - LABORATORY CBC & Chemistry Diagram: 10/30/19 07:57 10/30/19 07:57 Medical Decision Making - Medical Decision Making 74F with hx/o HTN, DM, hypothyroidism, CKD, Afib on Eliquis presents to the ED for elevated blood pressure. Pt had no complaints and physical exam was unre markable. Differential includes but not limited to aysmptomatic HTN and ACS r/o. EKG demonstrated NSR with paroxysmal Afib, and troponin negative. Pt given 100mg metoprolol tartrate. Patient felt improved and repeat BP 145/72. Fingerstick glucose 61, and was given a cup of orange juice. She was mentating appropriately and able to ambulate. She's safe for discharge and instructed to follow up with PMD. Discharge - Discharge Information Problems reviewed: Yes Clinical Impression/Diagnosis: Hypertension Condition: Improved Disposition: HOME - Admission No - Follow up/Referral Referrals: Luis Angel Villeda MD [Primary Care Provider] - - Patient Discharge Instructions Patient Printed Discharge Instructions: DI for High Blood Pressure Additional Instructions: You came into the ED this morning because of high blood pressure. Our workup included bloodwork and EKG which were normal. We gave you 100mg Metroprolol and blood pressure improved from 182/75 to 145/72. You are safe to be discharged home and follow up with primary medical doctor. Return to the ED if blood pressure top number is over 210 or bottom number is over 120, or if you have high blood pressure with headache, chest pain, passing out, or signs of strokes. Follow up with your primary medical doctor within 1 week. Lleg al servicio de urgencias esta maana debido a la presin arterial timothy. Nuestro estudio incluy anlisis de chava y electrocardiogramas que fueron normales. Le administramos 100 mg de Metroprolol y la presin arterial mejor de 182/75 a 145/72. Es seguro que le den el timothy a de la cruz casa y le ellen un seguimiento con de la cruz mdico de tabithaecera. Regrese al servicio de urgencias si el nmero superior de la presin arterial es superior a 210 o el nmero inferior es superior a 120, o si tiene presin arterial timothy con dolor de charlee, dolor de pecho, desmayo o signos de apopleja. Margret un seguimiento con de la cruz mdico de cabecera dentro de 1 semana. Print Language: BULGARIAN - Post Discharge Activity
[2019-10-30 08:17] LABS: INR 0.83 (0.83-1.09); PROTHROMBIN TIME (PATIENT) 9.8 SEC (9.7-13.0)
[2019-10-30 08:20] LABS: ACTIVATED PTT 17.9 SECONDS (25.2-36.5)
[2019-10-30] MEDS ORDERED: METOPROLOL TARTRATE 50 MG TABLET (FP) PO ONE (08:34)
[2019-10-30] MEDS ORDERED: METOPROLOL TARTRATE 50 MG TABLET (FP) ONE (08:39)
[2019-10-30 08:45] LABS: ALBUMIN 3.8 g/dl (3.4-5.0); ANION GAP 9 MMOL/L (8-16); BLOOD UREA NITROGEN 24.4 mg/dL (7-18); CALCIUM 9.2 mg/dL (8.5-10.1); CHLORIDE 105 mmol/L (98-107); CO2 25 mmol/L (21-32); GLUCOSE,RANDOM 61 mg/dL (74-106); POTASSIUM 4.3 mmol/L (3.5-5.1); SODIUM 139 mmol/L (136-145)
[2019-10-30 08:52] LABS: ALK PHOS 100 U/L (45-117); BILIRUBIN,TOTAL 0.4 mg/dL (0.2-1); CREATININE 1.4 mg/dL (0.55-1.3); SGOT/AST 30 U/L (15-37); SGPT/ALT 28 U/L (13-61); TOT PROT 7.7 g/dl (6.4-8.2)
[2019-10-30 08:53] VITALS: PULSE 75
--- NOTE | 2019-10-30 08:55 | PDOC ---
Attending Attestation - Resident Resident Name: Anson Lambert - ED Attending Attestation I have performed the following: I have examined & evaluated the patient, The case was reviewed & discussed with the resident, I agree w/resident's findings & plan, Exceptions are as noted - HPI HPI: 10/30/19 08:50 74 F with h/o HTN, DM, hypothyroid, CKD, afib on eliquis presenting to ED with elevated BP. Pt's daughter reports baseline BP is 140 systolic, but pt states it is usually 160s. She notes that she does not check it every day. However, this morning, she was feeling nauseous, so she checked her BP and found it to be high. Pt also checked her fingerstick, which was 60. Pt subsequently ate and now feels much better. Pt currently denies any complaints. Pt notes she has not taken her home BP meds today. - Physicial Exam PE: 10/30/19 08:52 "GENERAL: Awake, alert, and fully oriented, in no acute distress. HEAD: No signs of trauma EYES: PERRLA, EOMI, sclera anicteric, conjunctiva clear ENT: Auricles normal inspection, hearing grossly normal, nares patent, oropharynx clear without exudates. Moist mucosa NECK: Nontender, no stepoffs, Normal ROM, supple, no lymphadenopathy, JVD, or masses LUNGS: Breath sounds equal, clear to auscultation bilaterally. No wheezes, and no crackles HEART: Regular rate and rhythm, normal S1 and S2, no murmurs, rubs or gallops ABDOMEN: Soft, nontender, normoactive bowel sounds. No guarding, no rebound. No masses EXTREMITIES: Normal range of motion, no edema. No clubbing or cyanosis. No cords, erythema, or tenderness NEUROLOGICAL: Cranial nerves II through XII intact. 5/5 strength and sensation in all extremities, Normal speech, normal gait, normal cerebellar function SKIN: Warm, Dry, normal turgor, no rashes or lesions noted. - Medical Decision Making 10/30/19 08:55 74 F with elevated BP. No complaints at this time. HOwever, had nausea and hypoglycemia earlier today. Will check basic labs. - Labs - Home metoprolol 10/30/19 10:13 Labs unremarkable CMP glucose 61 but currently asymptomatic Pt given juice and food, mentating appropriately, no complaints Pt is well appearing, with normal vitals. Clinically stable for DC at this time. I discussed the physical exam findings, ancillary test results and final diagnoses with the patient. I answered all of the patient's questions. The patient was satisfied with the care received and felt comfortable with the discharge plan and treatment plan. The patient agrees to follow up with the primary care physician within 24-72 hours. Discharge - Discharge Information Problems reviewed: Yes Clinical Impression/Diagnosis: Hypertension, Nausea, Hypoglycemia Condition: Improved Disposition: HOME - Follow up/Referral Referrals: Luis Angel Villeda MD [Primary Care Provider] - - Patient Discharge Instructions Patient Printed Discharge Instructions: DI for High Blood Pressure Additional Instructions: You came into the ED this morning because of high blood pressure. Our workup included bloodwork and EKG which were normal. We gave you 100mg Metroprolol and blood pressure improved from 182/75 to 145/72. You are safe to be discharged home and follow up with primary medical doctor. Return to the ED if blood pressure top number is over 210 or bottom number is over 120, or if you have high blood pressure with headache, chest pain, passing out, or signs of strokes. Follow up with your primary medical doctor within 1 week. Lleg al servicio de urgencias esta maana debido a la presin arterial timothy. Nuestro estudio incluy anlisis de chava y electrocardiogramas que fueron normales. Le administramos 100 mg de Metroprolol y la presin arterial mejor de 182/75 a 145/72. Es seguro que le den el timothy a de la cruz casa y le ellen un s eguimiento con de la cruz mdico de cabecera. Regrese al servicio de urgencias si el nmero superior de la presin arterial es superior a 210 o el nmero inferior es superior a 120, o si tiene presin arterial timothy con dolor de charlee, dolor de pecho, desmayo o signos de apopleja. Margret un seguimiento con de la cruz mdico de cabecera dentro de 1 semana. Print Language: YI - Post Discharge Activity
[2019-10-30 09:24] VITALS: BP 145/75; TEMP 97.6
--- NOTE | 2019-10-30 18:14 | EKG ---
Test Reason : Blood Pressure : / mmHG Vent. Rate : 078 BPM Atrial Rate : 078 BPM P-R Int : 172 ms QRS Dur : 082 ms QT Int : 378 ms P-R-T Axes : 060 014 054 degrees QTc Int : 430 ms SINUS RHYTHM WITH PREMATURE ATRIAL COMPLEXES OTHERWISE NORMAL ECG WHEN COMPARED WITH ECG OF 28-JAN-2018 09:42, Confirmed by JONAS DAVILA MD ([id number]) on 10/30/2019 6:13:31 PM Referred By: Confirmed By:JONAS DAVILA MD
== END 2019-10-30 09:15 | disposition home or self-care (01) ==
LOC: JER 06:29
DX: I10 Essential (primary) hypertension (principal)
CPT/HCPCS: 36415; 80053; 82550; 82553; 84484; 85610; 85730; 93005; 93010; 99284-25

== ENCOUNTER 2019-11-16 02:05 | Inpatient (IN) | payer OTHER ==
--- NOTE | 2019-11-16 02:09 | PDOC ---
Attending Attestation - Resident Resident Name: Demetrio Garcia - ED Attending Attestation I have performed the following: I have examined & evaluated the patient, The case was reviewed & discussed with the resident, I agree w/resident's findings & plan - HPI HPI: 11/16/19 02:09 see resident hpi - Physicial Exam PE: 11/16/19 02:09 see resident exam - Medical Decision Making 11/16/19 02:48 74-year-old female with 1 day of not feeling well and blurry vision as well as unsteady gait Daughter states she last saw her at 5 PM and was unsure as to her condition but when she returned home patient had pronounced difficulty ambulating due to imbalance Code de la o activated on arrival CT scan showed no acute abnormality Initial NIH scale was 2, disconjugate gaze noted Patient currently on low-dose aspirin and Eliquis with a history of atrial fibrillation currently in sinus rhythm We will admit to medical service for continued evaluation, neurology consult Discharge - Discharge Information Problems reviewed: Yes Clinical Impression/Diagnosis: Unsteady gait, Dysconjugate gaze - Follow up/Referral - Patient Discharge Instructions - Post Discharge Activity
[2019-11-16] MEDS ORDERED: SODIUM CHLORIDE 1,000 ML IV SCH (02:15)
[2019-11-16 02:46] LABS: BASO % 0.5 % (0-2.0); EOS % 1.3 % (0-4.5); HEMATOCRIT 39.3 % (32.4-45.2); LYMPH % 30.2 % (8-40); MCH 28.9 pg (25.7-33.7); MCHC 33.2 g/dl (32.0-36.0); MEAN CELL VOLUME 87.3 fl (80-96); MEAN PLT VOLUME 9.4 fl (7.5-11.1); MONO % 9.2 % (3.8-10.2); NEUT % 58.8 % (42.8-82.8); PLATELET COUNT 160 K/MM3 (134-434); RBC 4.51 M/mm3 (3.60-5.2); RDW 14.5 % (11.6-15.6); WHITE BLOOD COUNT 5.5 K/mm3 (4.0-10.0)
--- NOTE | 2019-11-16 02:49 | PDOC ---
History of Present Illness - General Chief Complaint: CVA/TIA Stated Complaint: POSSIBLE STROKE Time Seen by Provider: 11/16/19 02:09 - History of Present Illness Initial Comments: 11/17/19 00:57 74yo F presents w/ 1 day of double vision and dizziness. Her daughter reports that she returned home from work and went to bed around 2330. She awoke around 0200 because her mother, the patient who shares a bedroom with the daughter, was taking "longer than usual." Pt was found in the bathroom walking slowly and reporting dizziness and double vision. Daughter attempted to check EOM and, when it was not successful, called 911. Pt reports this started in the AM. Denies h/o strokes, hemorrhage, AL. Pt compliant on eliquis for AF. FAST exam in ED negative. 11/17/19 01:02 Past History - Medical History Allergies/Adverse Reactions: Allergies Allergy/AdvReac Type Severity Reaction Status Date / Time No Known Allergies Allergy Verified 10/30/19 06:55 Home Medications: Ambulatory Orders Apixaban [Eliquis] 5 mg PO BID 30 Days #60 tablet 01/28/18 Aspirin [ASA -] 81 mg PO DAILY 01/28/18 Levothyroxine Sodium [Synthroid] 75 mcg PO DAILY 01/28/18 Omeprazole 20 mg PO BID 01/28/18 Amlodipine Besylate [Norvasc -] 10 mg PO DAILY 11/16/19 Atorvastatin Ca [Lipitor] 40 mg PO HS 11/16/19 Gabapentin 400 mg PO TID 11/16/19 Insulin Lispro [Humalog Kwikpen U-200] 10 units SQ AC 11/16/19 Metoprolol Tartrate 100 mg PO BID 11/16/19 Telmisartan 40 mg PO DAILY 11/16/19 COPD: No Diabetes: Yes HTN: Yes Hypercholesterolemia: Yes - Immunization History Immunization Up to Date: Yes - Psycho-Social/Smoking History Smoking History: Never smoked Have you smoked in the past 12 months: No Review of Systems - Review of Systems Able to Perform ROS?: Yes Constitutional: No: Chills, Diaphoresis HEENTM: Yes: Blurred Vision, Recent change in vision, Double Vision. No: Tinnitus, Throat Pain Respiratory: No: Cough, Shortness of Breath, SOB at Rest, Productive cough Cardiac (ROS): No: Symptoms Reported, Irregular Heart Rate, Lightheadedness ABD/GI: No: Nausea, Poor Appetite, Vomiting : No: Dysuria, Frequency, Hematuria Musculoskeletal: No: Back Pain, Joint Swelling, Muscle Pain Integumentary: No: Bruising, Change in Color, Lesions, Rash Neurological: Yes: Headache, Dizziness. No: Seizure, Tingling *Physical Exam - Physical Exam General Appearance: Yes: Nourished, Appropriately Dressed, Disheveled, Mild Distress HEENT: positive: Normal ENT Inspection, Normal Voice, Other (strabismus present, which is new. pt reports diplopia) Neck: positive: Trachea midline, Normal Thyroid, Supple. negative: Tender Respiratory/Chest: positive: Lungs Clear, Normal Breath Sounds. negative: Resp iratory Distress Cardiovascular: positive: Regular Rhythm, Regular Rate, S1, S2 Gastrointestinal/Abdominal: positive: Normal Bowel Sounds, Soft. negative: Tender Musculoskeletal: positive: Normal Inspection. negative: CVA Tenderness Extremity: positive: Normal Capillary Refill, Normal Inspection Integumentary: positive: Normal Color, Dry, Warm NIH Stroke Scale - Last Known Well Date/Time & Onset Date Last Known Well: 11/16/19 (0900) Time Last Known Well: 09:00 - Initial Evaluation Ask patient the month and their age: Answers both correctly Ask patient to open & close eyes; make fist and let go: Obeys both correctly Best gaze (horizontal eye movement): Partial gaze palsy Visual field testing: No visual field loss Facial paresis (Show teeth/raise eyebrows/close eyes tight): Normal symmetrical movement Motor Function: Left Arm: Normal Motor Function: Right Arm: Normal (extends arm 90 (or 45) degrees for 10 seconds without drift Motor Function: Left Leg: Normal (extends leg 30 degrees for 5 seconds without drift) Motor Function: Right Leg: Normal (extends leg 30 degrees for 5 seconds without drift) Limb Ataxia: No ataxia Sensory(Use pinprick test arms,legs,trunk,face/side to side): Normal Best language (Describe picture, name items, read sentences): No Aphasia Dysarthria (read several words): Normal articulation Extinction and Inattention: No abnormality Discharge - Discharge Information Problems reviewed: Yes Clinical Impression/Diagnosis: Transient ischemic attack, Diplopia, Dizziness, Unsteady gait, Dysconjugate gaze Cerebrovascular accident (CVA) Qualifiers: CVA mechanism: unspecified Qualified Code(s): I63.9 - Cerebral infarction, unspecified - Admission Yes - Follow up/Referral - Patient Discharge Instructions - Post Discharge Activity
[2019-11-16 02:50] VITALS: BMI 29.0
[2019-11-16 03:02] LABS: CHOLESTEROL 174 mg/dL (50-200); HDL CHOLESTEROL 75 mg/dL (40-60); LDL CHOLESTEROL (ONLY SJRH) 79 mg/dL (5-100); TRIGLYCERIDES 112 mg/dL (0-150)
[2019-11-16 03:05] LABS: ALBUMIN 3.5 g/dl (3.4-5.0); ALK PHOS 143 U/L (45-117); ANION GAP 6 MMOL/L (8-16); BILIRUBIN,TOTAL 0.3 mg/dL (0.2-1); BLOOD UREA NITROGEN 30.3 mg/dL (7-18); CALCIUM 8.9 mg/dL (8.5-10.1); CHLORIDE 105 mmol/L (98-107); CO2 27 mmol/L (21-32); CREATININE 1.5 mg/dL (0.55-1.3); GLUCOSE,RANDOM 130 mg/dL (74-106); POTASSIUM 4.3 mmol/L (3.5-5.1); SGOT/AST 21 U/L (15-37); SGPT/ALT 29 U/L (13-61); SODIUM 139 mmol/L (136-145)
[2019-11-16 03:54] LABS: EPI CELLS 13 /uL (0-25.1); HYALINE CASTS 0 /uL (0-3.1); URINE APPEARANCE CLEAR; URINE BACTERIA 87 /uL (0-1359); URINE BILIRUBIN NEGATIVE (NEGATIVE); URINE COLOR YELLOW; URINE GLUCOSE (UA) NEGATIVE (NEGATIVE); URINE KETONE NEGATIVE (NEGATIVE); URINE LEUK ESTERASE TRACE (NEGATIVE); URINE NITRITE NEGATIVE (NEGATIVE); URINE PROTEIN 2+ (NEGATIVE); URINE RBC 16 /uL (0-23.9); URINE UROBILINOGEN 0.2 mg/dL (0.2-1.0); URINE WBC 31 /uL (0-25.8)
--- NOTE | 2019-11-16 04:00 | PN ---
Teaching Attending Note Name of Resident: Rafa Ragland ATTENDING PHYSICIAN STATEMENT I saw and evaluated the patient. I reviewed the resident's note and discussed the case with the resident. I agree with the resident's findings and plan as documented. SUBJECTIVE: Patient is a 74 year old woman with PMH of Afib (on Eliquis), CKD, HTN, Insulin- treated DM, Hypothyroidism and HLD who presents to the ER with complaint of 1 day of not feeling well and blurry vision as well as unsteady gait. Daughter states she last saw her at 5 PM and was unsure as to her condition but when she returned home patient had pronounced difficulty ambulating due to imbalance. Code de la o activated on arrival in the ER but CT scan showed no acute abnormality and initial NIHSS score was 2 - disconjugate gaze noted. Was in sinus rhythm. Patient denies chest pain, shortness of breath, abdominal pain, headache, palpitations, fever, chills, nausea, vomiting, diarrhea, constipation, dysuria, frequency, urgency, melena, hematochezia or hematuria. Denies alcohol, tobacco or illicit drug use. No sick contacts or recent travels. Family history is unremarkable. OBJECTIVE: Alert Vital Signs Period Temp Pulse Resp BP Sys/Page Pulse Ox Last 24 Hr 98.2 F 60 18 172/92 97 HEENT: No Jaundice, eye redness or discharge, Dysconjugate gaze; PERRLA. Normocephalic, atraumatic. External ears are normal and hearing is grossly intact. No nasal discharge. Neck: Supple, nontender. No palpable adenopathy or thyromegaly. No JVD Chest: Good effort. Clear to auscultation and percussion. Heart: Regular. No S3, rub or murmur Abdomen: Not distended, soft, nontender and no HSM. No rebound or guarding. Normal bowel sounds. Ext: Peripheral pulses intact. No leg edema. Skin: Warm and dry. No petechiae, rash or ecchymosis. Neuro: Alert. Oriented x3. CN 2-12 grossly intact. Sensation grossly intact in all four extremities and DTR are symmetric. Unsteady gait. Psych: Appropriate mood and affect. Good insight. Home Medications Medication Instructions Recorded Apixaban [Eliquis] 5 mg PO BID 30 Days #60 tablet 01/28/18 Aspirin [ASA -] 81 mg PO DAILY 01/28/18 Gabapentin [Neurontin] 300 mg PO BID 01/28/18 Insulin Lispro [Humalog] 40 unit SQ DAILY 01/28/18 Levothyroxine Sodium [Synthroid] 75 mcg PO DAILY 01/28/18 Metoprolol Tartrate 50 mg PO BID 30 Days #60 tablet 01/28/18 Omeprazole 20 mg PO BID 01/28/18 Abnormal Lab Results 11/16/19 11/16/19 11/16/19 02:30 03:41 Unknown Anion Gap 6 L BUN 30.3 H Creatinine 1.5 H Random Glucose 130 H Alkaline Phosphatase 143 H Creatine Kinase 255 H CK-MB (CK-2) 6.0 H HDL Cholesterol 75 H Ur Specific [place] 1.007 L Urine Protein 2+ H Current Medications Generic Name Dose Route Start Last Admin Trade Name Freq PRN Reason Stop Dose Admin Sodium Chloride 1,000 mls @ 42 mls/hr 11/16/19 02:15 11/16/19 02:30 Normal Saline - IV 42 mls/hr ASDIR KARINA Administration ASSESSMENT AND PLAN: 1. TIA/Rule out CVA - No evidence of acute intracranial pathology on noncontrast head CT scan. EKG is pending. Will admit to telemetry, repeat troponin, repeat EKG, get ECHO, TSH, carotid doppler, brain MRI, do speech and swallow evaluation, neurochecks and implement fall/aspiration/seizure precautions. Consult PT/Neurology. Will treat with Aspirin and Lipitor 80 mg qd. Viral testing for COVID-19 ordered and patient placed on airborne, droplet and contact isolation. Will continue comprehensive care for all of patients comorbid conditions including Synthroid for hypothyroidism and Eliquis for Afib. 2. DM For now, we will hold the home diabetes drugs and implement sliding scale insulin regimen. Provide comprehensive diabetes care with patient teaching and counseling about the importance of adherence to prescribed diabetes regimen, euglycemia, eye care and foot care. 3. EDVIN on CKD May have rhabdomyolysis. Will get kidney sonogram, hydrate gently with IV 0.45% NaCl, monitor urine output and consult Nephrology. Avoid nephrotoxic agents such as NSAIDS, aminoglycosides, contrast dyes and certain Alternative medicine products. 4. Hypertension Will allow permissive hypertension for 24 to 48 hours. Will restart suitable outpatient antihypertensive drugs when clinically appropriate. Subsequently, will revise regimen to ensure [id number] excellent BP control. Patient counseled on the injurious effects of uncontrolled hyper tension. Nonpharmacologic measures to control hypertension like weight loss, salt restriction and exercise stressed. Importance of adherence to treatment regimen and attainment of normotension emphasized. 5. DVT prophylaxis - On Eliquis for Afib. 6. Advance directives - Full code
[2019-11-16] MEDS ORDERED: SODIUM CHLORIDE 0.45% 1,000 ML IV SCH (06:45)
[2019-11-16] MEDS ORDERED: LEVOTHYROXINE NA 75 MCG TABLET (FP) PO SCH ×2 (07:00→15:00)
--- NOTE | 2019-11-16 07:13 | CONSULT ---
Consult Consult Specialty:: Nephrology Reason for Consultation:: CKD - History of Present Illness Chief Complaint: unsteady gait and double vision History of Present Illness: Pt is a 74 year old female with pmhx of htn, dm, hypothyroidism, hld, and a-fib who presents to the ER with double vision and unsteady gait. I was called to evaluate her for elevated creatinine. She denies history of CKD. She has had abnormal tutor coordinator values in the past. She denies dysuria or hematuria. She denies chest pain or shortness of breath. SHe denies nsaid use. - History Source History Provided By: Patient - Past Medical History Cardio/Vascular: Yes: AFIB, HTN Renal/: Yes: Renal Inusuff ...: No - Alcohol/Substance Use Hx Alcohol Use: No - Smoking History Smoking history: Never smoked Have you smoked in the past 12 months: No Home Medications - Allergies Allergies/Adverse Reactions: Allergies Allergy/AdvReac Type Severity Reaction Status Date / Time No Known Allergies Allergy Verified 10/30/19 06:55 - Home Medications Home Medications: Ambulatory Orders Apixaban [Eliquis] 5 mg PO BID 30 Days #60 tablet 01/28/18 RX: Aspirin [ASA -] 81 mg PO DAILY 01/28/18 RX: Levothyroxine Sodium [Synthroid] 75 mcg PO DAILY 01/28/18 RX: Omeprazole 20 mg PO BID 01/28/18 Amlodipine Besylate [Norvasc -] 10 mg PO DAILY 11/16/19 Atorvastatin Ca [Lipitor] 40 mg PO HS 11/16/19 Insulin Lispro [Humalog Kwikpen U-200] 10 units SQ AC 11/16/19 RX: Gabapentin 400 mg PO TID 11/16/19 RX: Metoprolol Tartrate 100 mg PO BID 11/16/19 RX: Telmisartan 40 mg PO DAILY 11/16/19 Family Medical History Family History: Denies Review of Systems - Review of Systems Constitutional: reports: Malaise Eyes: reports: Other (double vision) Cardiovascular: reports: No Symptoms Respiratory: reports: No Symptoms Gastrointestinal: reports: No Symptoms Genitourinary: reports: No Symptoms Musculoskeletal: reports: No Symptoms Integumentary: reports: No Symptoms Neurological: reports: Unsteady Gait Endocrine: reports: No Symptoms Psychiatric: reports: No Symptoms Physical Exam Vital Signs: Vital Signs Temperature 98.2 F 11/16/19 02:45 Pulse Rate 51 L 11/16/19 06:22 Respiratory Rate 16 11/16/19 06:22 Blood Pressure 152/58 L 11/16/19 06:22 O2 Sat by Pulse Oximetry (%) 100 11/16/19 06:22 Constitutional: Yes: Calm Eyes: Yes: Conjunctiva Clear HENT: Yes: Atraumatic Cardiovascular: Yes: S1, S2 Respiratory: Yes: CTA Bilaterally Gastrointestinal: Yes: Soft, Abdomen, Obese Renal/: Yes: WNL Edema: No Integumentary: Yes: WNL Neurological: Yes: Oriented Labs: CBC, BMP 11/16/19 02:30 11/16/19 Unknown Laboratory Tests 01/28/18 01/28/18 10/30/19 00:27 06:00 07:57 Creatinine 1.4 H 1.4 H 1.4 H Urine Protein 11/16/19 11/16/19 03:41 Unknown Creatinine 1.5 H Urine Protein 2+ H Imaging - Results Cat Scan: Report Reviewed Assessment/Plan Current Medications Generic Name Dose Route Start Last Admin Trade Name Freq PRN Reason Stop Dose Admin Apixaban 5 mg 11/16/19 10:00 Eliquis - PO BID KARINA Aspirin 81 mg 11/16/19 10:00 Asa - PO DAILY KARINA Atorvastatin Calcium 80 mg 11/16/19 22:00 Lipitor - PO HS KARINA Sodium Chloride 1,000 mls @ 42 mls/hr 11/16/19 02:15 11/16/19 02:30 Normal Saline - IV 42 mls/hr ASDIR KARINA Administration Sodium Chloride 1,000 mls @ 50 mls/hr 11/16/19 06:45 11/16/19 06:49 1/2 Normal Saline IV 11/17/19 06:36 50 mls/hr ASDIR KARINA Administration Insulin Aspart 1 vial 11/16/19 07:00 Novolog Vial Sliding Scale - SQ ACHS KARINA Protocol Levothyroxine Sodium 75 mcg 11/16/19 07:00 Synthroid - PO ACBK KARINA Impression 1. CKD 2. a-fib 3. double vision 4. unsteady gait 5. hypothyroidism 6. hld 7. r/o cva Plan - renal function stable - avoid nephrotoxins - avoid nsaids - repeat labs in am - can stop fluids once pt is eating and drinking Dr Wahl
[2019-11-16] MEDS: INSULIN SLIDING SCALE (NOVOLOG) 1 VIAL SQ SCH ×4 (07:35→23:03)
[2019-11-16] MEDS ORDERED: LEVOTHYROXINE NA 25 MCG TABLET (FP) ONE (07:36)
--- NOTE | 2019-11-16 09:07 | HP ---
CHIEF COMPLAINT: 1 day of not feeling well with double vision and unsteady gait PCP: Dr. Luis Angel Villeda HISTORY OF PRESENT ILLNESS: 74 year old female patient with past medical history that includes HTN, DM, Hypothyroidism, HLD, and AFib on Eliquis, who presented to the emergency room with 1 day of not feeling well and having double vision with unsteady gait. Her symptoms started at around 4:30 or 5:00 pm. Patient was talked to at bedside with crap shooter #[id number]. The patient denies any weakness, numbness, or headache. Her right eye is abducted laterally, but she is able to over the abduction and follow my finger in an H-in-space test in all directions. NIHSS at bedside was a 2. ER course was notable for: (1) NIHSS of 2 (2) (3) Recent Travel: PAST MEDICAL HISTORY: HTN, DM, Hypothyroidism, HLD, AFib on Eliquis PAST SURGICAL HISTORY: Social History: Smoking: Denies Alcohol: Denies Drugs: Denies Allergies No Known Allergies Allergy (Verified 10/30/19 06:55) HOME MEDICATIONS: Home Medications Medication Instructions Recorded Apixaban [Eliquis] 5 mg PO BID 30 Days #60 tablet 01/28/18 Aspirin [ASA -] 81 mg PO DAILY 01/28/18 Gabapentin [Neurontin] 300 mg PO BID 01/28/18 Insulin Lispro [Humalog] 40 unit SQ DAILY 01/28/18 Levothyroxine Sodium [Synthroid] 75 mcg PO DAILY 01/28/18 Metoprolol Tartrate 50 mg PO BID 30 Days #60 tablet 01/28/18 Omeprazole 20 mg PO BID 01/28/18 Amlodipine Besylate [Norvasc -] 5 mg PO BID 11/16/19 Ramipril 5 mg PO DAILY 11/16/19 Simvastatin 40 mg PO HS 11/16/19 REVIEW OF SYSTEMS CONSTITUTIONAL: Absent: no fever HEENT: Absent: no headache CARDIOVASCULAR Absent: no palpitations RESPIRATORY: shortness of breath Absent: NEUROLOGIC: double vision, unsteady gait Absent: no weakness PHYSICAL EXAMINATION Vital Signs - 24 hr 11/16/19 11/16/19 11/16/19 02:45 04:11 06:22 Temperature 98.2 F Pulse Rate 60 Pulse Rate [ 53 L 51 L Apical] Respiratory 18 16 16 Rate Blood Pressure 172/92 H Blood Pressure 141/105 H 152/58 L [Right Arm] O2 Sat by Pulse 97 100 100 Oximetry (%) 11/16/19 08:15 Temperature 97.6 F Pulse Rate Pulse Rate [ 52 L Apical] Respiratory 25 H Rate Blood Pressure Blood Pressure 173/61 H [Right Arm] O2 Sat by Pulse 100 Oximetry (%) GENERAL: Awake, alert, and fully oriented, in no acute distress. HEAD: Normal with no signs of trauma. EYES: Pupils equal, round and reactive to light, extraocular movements intact. No lid lag. EARS, NOSE, THROAT: Ears normal, nares patent, oropharynx clear without exudates. Moist mucous membranes. NECK: Normal range of motion, supple without lymphadenopathy, JVD, or masses. LUNGS: Breath sounds equal, clear to auscultation bilaterally. No wheezes, and no crackles. No accessory muscle use. HEART: Regular rate and rhythm, normal S1 and S2 without murmur, rub or gallop. ABDOMEN: Soft, nontender, not distended, normoactive bowel sounds, no guarding, no rebound, no masses. MUSCULOSKELETAL: Normal range of motion at all joints. No bony deformities or tenderness. UPPER EXTREMITIES: 2+ pulses, warm, well-perfused. No cyanosis. No clubbing. No peripheral edema. LOWER EXTREMITIES: 2+ pulses, warm, well-perfused. No calf tenderness. No peripheral edema. NEUROLOGICAL: Cranial nerves II-XII intact. Normal speech. Muscle strength 5/5 in upper and lower extremities bilaterally. Sensation intact in upper and lower extremities bilaterally. Rntmnx-Vhrr-Byfmhn Test Unremarkable. NIHSS 2 (Right leg drifted but didn't hit bed = +1 pt, partial gaze palsy: can be overcome = +1 pt). PSYCHIATRIC: Cooperative. Good eye contact. Appropriate mood and affect. SKIN: Warm, dry, normal turgor, no rashes or lesions noted, normal capillary refill. Laboratory Results - last 24 hr 11/16/19 11/16/19 11/16/19 02:14 02:30 02:30 WBC 5.5 RBC 4.51 Hgb 13.0 Hct 39.3 MCV 87.3 MCH 28.9 MCHC 33.2 RDW 14.5 Plt Count 160 MPV 9.4 Absolute Neuts (auto) 3.2 Neutrophils % 58.8 Lymphocytes % 30.2 D Monocytes % 9.2 Eosinophils % 1.3 D Basophils % 0.5 Nucleated RBC % 0 Sodium Potassium Chloride Carbon Dioxide Anion Gap BUN Creatinine Est GFR (CKD-EPI)AfAm Est GFR (CKD-EPI)NonAf POC Glucometer 142 Random Glucose Calcium Total Bilirubin AST ALT Alkaline Phosphatase Creatine Kinase Creatine Kinase Index CK-MB (CK-2) Troponin I Total Protein Albumin Triglycerides 112 Cholesterol 174 Total LDL Cholesterol 79 HDL Cholesterol 75 H Urine Color Urine Appearance Urine pH Ur Specific Prince Urine Protein Urine Glucose (UA) Urine Ketones Urine Blood Urine Nitrite Urine Bilirubin Urine Urobilinogen Ur Leukocyte Esterase Urine WBC (Auto) Urine RBC (Auto) Urine Casts (Auto) U Epithel Cells (Auto) Urine Bacteria (Auto) Blood Type Antibody Screen 11/16/19 11/16/19 11/16/19 02:30 03:41 07:23 WBC RBC Hgb Hct MCV MCH MCHC RDW Plt Count MPV Absolute Neuts (auto) Neutrophils % Lymphocytes % Monocytes % Eosinophils % Basophils % Nucleated RBC % Sodium Potassium Chloride Carbon Dioxide Anion Gap BUN Creatinine Est GFR (CKD-EPI)AfAm Est GFR (CKD-EPI)NonAf POC Glucometer 74 Random Glucose Calcium Total Bilirubin AST ALT Alkaline Phosphatase Creatine Kinase Creatine Kinase Index CK-MB (CK-2) Troponin I Total Protein Albumin Triglycerides Cholesterol Total LDL Cholesterol HDL Cholesterol Urine Color Yellow Urine Appearance Clear Urine pH 7.0 Ur Specific Prince 1.007 L Urine Protein 2+ H Urine Glucose (UA) Negative Urine Ketones Negative Urine Blood Trace Urine Nitrite Negative Urine Bilirubin Negative Urine Urobilinogen 0.2 Ur Leukocyte Esterase Trace Urine WBC (Auto) 31 Urine RBC (Auto) 16 Urine Casts (Auto) 0 U Epithel Cells (Auto) 13 Urine Bacteria (Auto) 87 Blood Type B POSITIVE Antibody Screen Negative 11/16/19 Unknown WBC RBC Hgb Hct MCV MCH MCHC RDW Plt Count MPV Absolute Neuts (auto) Neutrophils % Lymphocytes % Monocytes % Eosinophils % Basophils % Nucleated RBC % Sodium 139 Potassium 4.3 Chloride 105 Carbon Dioxide 27 Anion Gap 6 L BUN 30.3 H Creatinine 1.5 H Est GFR (CKD-EPI)AfAm 39.09 Est GFR (CKD-EPI)NonAf 33.73 POC Glucometer Random Glucose 130 H Calcium 8.9 Total Bilirubin 0.3 AST 21 ALT 29 Alkaline Phosphatase 143 H Creatine Kinase 255 H Creatine Kinase Index 2.3 CK-MB (CK-2) 6.0 H Troponin I < 0.02 Total Protein 7.0 Albumin 3.5 Triglycerides Cholesterol Total LDL Cholesterol HDL Cholesterol Urine Color Urine Appearance Urine pH Ur Specific Prince Urine Protein Urine Glucose (UA) Urine Ketones Urine Blood Urine Nitrite Urine Bilirubin Urine Urobilinogen Ur Leukocyte Esterase Urine WBC (Auto) Urine RBC (Auto) Urine Casts (Auto) U Epithel Cells (Auto) Urine Bacteria (Auto) Blood Type Antibody Screen ASSESSMENT/PLAN: 74 year old female patient with past medical history that includes HTN, DM, Hypothyroidism, HLD, and AFib on Eliquis, who presented to the emergency room with 1 day of not feeling well and having double vision with unsteady gait. 1. TIA/Rule out CVA - telemetry - repeated troponin - repeated EKG - ordered ECHO - ordered TSH - ordered carotid doppler - ordered brain MRI - speech and swallow evaluation - neurochecks - fall/aspiration/seizure precautions - consulted Neurology - Physical Therapy 2. EDVIN on CKD - Creatinine 1.5 - IV Fluid Hydration - Nephro consulted 3. DM - Insulin Sliding Scale - BGMs 4. HTN - Allow permissive HTN for 24 to 48 hours. Can restart home HTN medications when clinically appropriate. 5. AFib on Eliquis - Eliquis 6. Hypothyroidism - Synthroid #FEN - 1/2 Normal Saline at 50. Monitor Electrolytes. Diabetic/Sodium Diet. DVT PPx - Eliquis Family Medical History Family History: As Documented Family Hx Nuerologic Problems: Father (stroke) Visit type - Medication Review Med list reviewed for High Risk Meds patients 65 and older: Yes - Emergency Visit Emergency Visit: Yes ED Registration Date: 11/16/19 Care time: The patient presented to the Emergency Department on the above date and was hospitalized for further evaluation of their emergent condition. - New Patient This patient is new to me today: Yes Date on this admission: 11/16/19 - Critical Care Critical Care patient: No ATTENDING PHYSICIAN STATEMENT I saw and evaluated the patient. I reviewed the resident's note and discussed the case with the resident. I agree with the resident's findings and plan as documented. SUBJECTIVE: OBJECTIVE: ASSESSMENT AND PLAN:
[2019-11-16] MEDS ORDERED: ASPIRIN 81 MG CHEWABLE TABLETS ONE (09:26)
[2019-11-16] MEDS ORDERED: APIXABAN 5 MG TABLET ONE ×2 (09:27→22:56)
[2019-11-16] MEDS: ASPIRIN 81 MG CHEWABLE TABLETS PO SCH (09:29)
[2019-11-16] MEDS: APIXABAN 5 MG TABLET PO SCH ×2 (09:29→23:03)
[2019-11-16] MEDS: METOPROLOL TARTRATE 50 MG TABLET (FP) PO SCH ×2 (09:30→23:03)
[2019-11-16 10:07] LABS: INR 1.02 (0.83-1.09)
[2019-11-16 10:09] LABS: ACTIVATED PTT 34.5 SECONDS (25.2-36.5)
[2019-11-16 10:39] LABS: CHOLESTEROL 185 mg/dL (50-200); HDL CHOLESTEROL 83 mg/dL (40-60); LDL CHOLESTEROL (ONLY SJRH) 85 mg/dL (5-100); TRIGLYCERIDES 66 mg/dL (0-150)
--- NOTE | 2019-11-16 11:03 | CON.NEURO ---
Consult - Past Medical History ...: No - Alcohol/Substance Use Hx Alcohol Use: No - Smoking History Smoking history: Never smoked Have you smoked in the past 12 months: No Home Medications - Allergies Allergies/Adverse Reactions: Allergies Allergy/AdvReac Type Severity Reaction Status Date / Time No Known Allergies Allergy Verified 10/30/19 06:55 - Home Medications Home Medications: Ambulatory Orders Apixaban [Eliquis] 5 mg PO BID 30 Days #60 tablet 01/28/18 Aspirin [ASA -] 81 mg PO DAILY 01/28/18 Gabapentin [Neurontin] 300 mg PO BID 01/28/18 Insulin Lispro [Humalog] 40 unit SQ DAILY 01/28/18 Levothyroxine Sodium [Synthroid] 75 mcg PO DAILY 01/28/18 Metoprolol Tartrate 50 mg PO BID 30 Days #60 tablet 01/28/18 Omeprazole 20 mg PO BID 01/28/18 Amlodipine Besylate [Norvasc -] 5 mg PO BID 11/16/19 Ramipril 5 mg PO DAILY 11/16/19 Simvastatin 40 mg PO HS 11/16/19 Family Medical History Family Hx Nuerologic Problems: Father (stroke) Physical Exam-Neuro Vital Signs: Vital Signs Temperature 97.6 F 11/16/19 08:15 Pulse Rate 52 L 11/16/19 08:15 Respiratory Rate 25 H 11/16/19 08:15 Blood Pressure 173/61 H 11/16/19 08:15 O2 Sat by Pulse Oximetry (%) 100 11/16/19 08:15 Labs: CBC, BMP 11/16/19 02:30 11/16/19 Unknown INR, PTT INR 1.02 (0.83-1.09) 11/16/19 08:57 Assessment/Plan cc dizziness, double vision and dysbalance HPI 74 year old female history of htn, dm, hypothyroidism, hld, atrial fibrillation on eliquis. She came with with double vision and unsteady gait. It started wednesday afternoon. Patient denies any weakness , numbness, loc or seizure like activity. Patient has normal ct head. He nihss was two today . She takes aspirin and statin at home. 7 PAST MEDICAL HISTORY: HTN, DM, Hypothyroidism, HLD, AFib on Eliquis PAST SURGICAL HISTORY: Social History: Smoking: Denies Alcohol: Denies Drugs: Denies Allergies No Known Allergies Allergy (Verified 10/30/19 06:55) HOME MEDICATIONS: Home Medications Medication Instructions Recorded Apixaban [Eliquis] 5 mg PO BID 30 Days #60 tablet 01/28/18 Aspirin [ASA -] 81 mg PO DAILY 01/28/18 Gabapentin [Neurontin] 300 mg PO BID 01/28/18 Insulin Lispro [Humalog] 40 unit SQ DAILY 01/28/18 Levothyroxine Sodium [Synthroid] 75 mcg PO DAILY 01/28/18 Metoprolol Tartrate 50 mg PO BID 30 Days #60 tablet 01/28/18 Omeprazole 20 mg PO BID 01/28/18 Amlodipine Besylate [Norvasc -] 5 mg PO BID 11/16/19 Ramipril 5 mg PO DAILY 11/16/19 Simvastatin 40 mg PO HS 11/16/19 ROS,FH,SH reviewed in chart NEUROLOGICAL EXAMINATION Alert and follow command, neck is supple vss there is nystagmus on right lateral gaze on right eye and there is limitation of abduction on left eye on right gaze there is is no limitation on left lateral gaze pupil is reactive ext is normal in strength ct head unremarkable Assessment/Plan 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
--- NOTE | 2019-11-16 11:05 | CONSULT ---
Admitting History and Physical - Admission History of Present Illness: 74 year old woman with PMH of Afib (on Eliquis), CKD, HTN, Insulin-treated DM, Hypothyroidism and HLD who presents to the ER with complaint of 1 day of not feeling well and blurry vision as well as unsteady gait. 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 diabetic neuropathy vs pcom aneurysm ( less likley ) ct head unremarkable Pending mri of brain and mra of brain Passed Dys screen-Reg diet/thin liquid ordered Selected Entries 11/16/19 11/16/19 11/16/19 02:45 04:11 06:22 Pulse Rate 60 Pulse Rate [ 53 L 51 L Apical] Blood Pressure 172/92 H Blood Pressure 141/105 H 152/58 L [Right Arm] 11/16/19 08:15 Pulse Rate Pulse Rate [ 52 L Apical] Blood Pressure Blood Pressure 173/61 H [Right Arm] Laboratory Tests 11/16/19 11/16/19 02:30 04:05 WBC 5.5 COVID-19 ([facility]) Pending - Past Medical History ...: No - Smoking History Smoking history: Never smoked Have you smoked in the past 12 months: No - Alcohol/Substance Use Hx Alcohol Use: No History - Admission Reason For Visit: DIPLOPIA, TRANSIENT ISCHEMIC ATTACK
--- NOTE | 2019-11-16 12:36 | EKG ---
Test Reason : Blood Pressure : / mmHG Vent. Rate : 058 BPM Atrial Rate : 058 BPM P-R Int : 174 ms QRS Dur : 086 ms QT Int : 394 ms P-R-T Axes : 032 019 039 degrees QTc Int : 386 ms SINUS BRADYCARDIA OTHERWISE NORMAL ECG WHEN COMPARED WITH ECG OF 30-OCT-2019 06:54, PREMATURE ATRIAL COMPLEXES ARE NO LONGER PRESENT Confirmed by JUAN CARLOS CLARKE MD ([id number]) on 11/16/2019 12:35:29 PM Referred By: Confirmed By:JUAN CARLOS CLARKE MD
--- NOTE | 2019-11-16 14:51 | PN ---
Teaching Attending Note Name of Resident: Gino Land ATTENDING PHYSICIAN STATEMENT I saw and evaluated the patient. I reviewed the resident's note and discussed the case with the resident. I agree with the resident's findings and plan as documented. SUBJECTIVE: Feeling well, mild occipital headache and ongoing double vision. No facial/limb numbness or weakness. OBJECTIVE: Afebrile, Hemodynamically Stable. Last Vital Signs Temp Pulse Resp BP Pulse Ox 97.6 F 53 L 16 127/61 98 11/16/19 08:15 11/16/19 12:38 11/16/19 12:38 11/16/19 12:38 11/16/19 12:38 HEENT - Atraumatic, Normocephalic. Heart - S1, S2, irregular Lungs - clear to auscultation Abdomen - Soft, non-tender. Bowel sounds normal. Extremities - no edema, no calf tenderness. Neuro - AAO x 3. MIL. Strabismus R eye, defective rightward gaze left eye (limitation of abduction). Tone/Power normal all extremities. Laboratory Results - last 24 hr 11/16/19 11/16/19 11/16/19 02:14 02:30 02:30 WBC 5.5 RBC 4.51 Hgb 13.0 Hct 39.3 MCV 87.3 MCH 28.9 MCHC 33.2 RDW 14.5 Plt Count 160 MPV 9.4 Absolute Neuts (auto) 3.2 Neutrophils % 58.8 Lymphocytes % 30.2 D Monocytes % 9.2 Eosinophils % 1.3 D Basophils % 0.5 Nucleated RBC % 0 PT with INR INR PTT (Actin FS) Sodium Potassium Chloride Carbon Dioxide Anion Gap BUN Creatinine Est GFR (CKD-EPI)AfAm Est GFR (CKD-EPI)NonAf POC Glucometer 142 Random Glucose Calcium Total Bilirubin AST ALT Alkaline Phosphatase Creatine Kinase Creatine Kinase Index CK-MB (CK-2) Troponin I Total Protein Albumin Triglycerides 112 Cholesterol 174 Total LDL Cholesterol 79 HDL Cholesterol 75 H TSH Free T4 Thyroxine (T4) Resin T3 Uptake Urine Color Urine Appearance Urine pH Ur Specific [place] Urine Protein Urine Glucose (UA) Urine Ketones Urine Blood Urine Nitrite Urine Bilirubin Urine Urobilinogen Ur Leukocyte Esterase Urine WBC (Auto) Urine RBC (Auto) Urine Casts (Auto) U Epithel Cells (Auto) Urine Bacteria (Auto) Blood Type Antibody Screen 11/16/19 11/16/19 11/16/19 02:30 03:41 07:23 WBC RBC Hgb Hct MCV MCH MCHC RDW Plt Count MPV Absolute Neuts (auto) Neutrophils % Lymphocytes % Monocytes % Eosinophils % Basophils % Nucleated RBC % PT with INR INR PTT (Actin FS) Sodium Potassium Chloride Carbon Dioxide Anion Gap BUN Creatinine Est GFR (CKD-EPI)AfAm Est GFR (CKD-EPI)NonAf POC Glucometer 74 Random Glucose Calcium Total Bilirubin AST ALT Alkaline Phosphatase Creatine Kinase Creatine Kinase Index CK-MB (CK-2) Troponin I Total Protein Albumin Triglycerides Cholesterol Total LDL Cholesterol HDL Cholesterol TSH Free T4 Thyroxine (T4) Resin T3 Uptake Urine Color Yellow Urine Appearance Clear Urine pH 7.0 Ur Specific [place] 1.007 L Urine Protein 2+ H Urine Glucose (UA) Negative Urine Ketones Negative Urine Blood Trace Urine Nitrite Negative Urine Bilirubin Negative Urine Urobilinogen 0.2 Ur Leukocyte Esterase Trace Urine WBC (Auto) 31 Urine RBC (Auto) 16 Urine Casts (Auto) 0 U Epithel Cells (Auto) 13 Urine Bacteria (Auto) 87 Blood Type B POSITIVE Antibody Screen Negative 11/16/19 11/16/19 11/16/19 08:57 08:57 11:23 WBC RBC Hgb Hct MCV MCH MCHC RDW Plt Count MPV Absolute Neuts (auto) Neutrophils % Lymphocytes % Monocytes % Eosinophils % Basophils % Nucleated RBC % PT with INR 12.00 INR 1.02 PTT (Actin FS) 34.5 Sodium Potassium Chloride Carbon Dioxide Anion Gap BUN Creatinine Est GFR (CKD-EPI)AfAm Est GFR (CKD-EPI)NonAf POC Glucometer 97 Random Glucose Calcium Total Bilirubin AST ALT Alkaline Phosphatase Creatine Kinase Creatine Kinase Index CK-MB (CK-2) Troponin I Total Protein Albumin Triglycerides 66 Cholesterol 185 Total LDL Cholesterol 85 HDL Cholesterol 83 H TSH 8.16 H Free T4 0.95 Thyroxine (T4) 7.2 Resin T3 Uptake 33.9 Urine Color Urine Appearance Urine pH Ur Specific [place] Urine Protein Urine Glucose (UA) Urine Ketones Urine Blood Urine Nitrite Urine Bilirubin Urine Urobilinogen Ur Leukocyte Esterase Urine WBC (Auto) Urine RBC (Auto) Urine Casts (Auto) U Epithel Cells (Auto) Urine Bacteria (Auto) Blood Type Antibody Screen 11/16/19 Unknown WBC RBC Hgb Hct MCV MCH MCHC RDW Plt Count MPV Absolute Neuts (auto) Neutrophils % Lymphocytes % Monocytes % Eosinophils % Basophils % Nucleated RBC % PT with INR INR PTT (Actin FS) Sodium 139 Potassium 4.3 Chloride 105 Carbon Dioxide 27 Anion Gap 6 L BUN 30.3 H Creatinine 1.5 H Est GFR (CKD-EPI)AfAm 39.09 Est GFR (CKD-EPI)NonAf 33.73 POC Glucometer Random Glucose 130 H Calcium 8.9 Total Bilirubin 0.3 AST 21 ALT 29 Alkaline Phosphatase 143 H Creatine Kinase 255 H Creatine Kinase Index 2.3 CK-MB (CK-2) 6.0 H Troponin I < 0.02 Total Protein 7.0 Albumin 3.5 Triglycerides Cholesterol Total LDL Cholesterol HDL Cholesterol TSH Free T4 Thyroxine (T4) Resin T3 Uptake Urine Color Urine Appearance Urine pH Ur Specific [place] Urine Protein Urine Glucose (UA) Urine Ketones Urine Blood Urine Nitrite Urine Bilirubin Urine Urobilinogen Ur Leukocyte Esterase Urine WBC (Auto) Urine RBC (Auto) Urine Casts (Auto) U Epithel Cells (Auto) Urine Bacteria (Auto) Blood Type Antibody Screen Current Medications Generic Name Dose Route Start Last Admin Trade Name Freq PRN Reason Stop Dose Admin Apixaban 5 mg 11/16/19 10:00 11/16/19 09:29 Eliquis - PO 5 mg BID KARINA Administration Aspirin 81 mg 11/16/19 10:00 11/16/19 09:29 Asa - PO 81 mg DAILY KARINA Administration Atorvastatin Calcium 80 mg 11/16/19 22:00 Lipitor - PO HS KARINA Sodium Chloride 1,000 mls @ 42 mls/hr 11/16/19 02:15 11/16/19 02:30 Normal Saline - IV 42 mls/hr ASDIR KARINA Administration Sodium Chloride 1,000 mls @ 50 mls/hr 11/16/19 06:45 11/16/19 06:49 1/2 Normal Saline IV 11/17/19 06:36 50 mls/hr ASDIR KARINA Administration Insulin Aspart 1 vial 11/16/19 07:00 11/16/19 11:28 Novolog Vial Sliding Scale - SQ Not Given ACHS [facility] Protocol Levothyroxine Sodium 75 mcg 11/16/19 07:00 11/16/19 07:38 Synthroid - PO 75 mcg ACBK KARINA Administration Metoprolol Tartrate 50 mg 11/16/19 10:00 11/16/19 09:30 Lopressor - PO 50 mg BID KARINA Administration Home Medications Medication Instructions Recorded Apixaban [Eliquis] 5 mg PO BID 30 Days #60 tablet 01/28/18 Aspirin [ASA -] 81 mg PO DAILY 01/28/18 Levothyroxine Sodium [Synthroid] 75 mcg PO DAILY 01/28/18 Omeprazole 20 mg PO BID 01/28/18 Amlodipine Besylate [Norvasc -] 10 mg PO DAILY 11/16/19 Atorvastatin Ca [Lipitor] 40 mg PO HS 11/16/19 Gabapentin 400 mg PO TID 11/16/19 Insulin Lispro [Humalog Kwikpen 10 units SQ AC 11/16/19 U-200] Metoprolol Tartrate 100 mg PO BID 11/16/19 Telmisartan 40 mg PO DAILY 11/16/19 ASSESSMENT AND PLAN: 74 year old female with history of HTN, DM 2, Hypothyroidism, HLD, CKD 3, Atrial Fibrillation (on Eliquis), presented with unsteady gait, double vision, occipital headache. 1. Acute L 3rd nerve Palsy - Acute CVA vs neuropathy vs Post communicating artery aneurysm CT Head - no acute intracranial findings, some volume loss, mild periventricular chronic ischemic changes. MRI/MRA Brain ordered. Carotid Duplex - mild atheroma L>R, no hemodynamically significant changes. Echo with bubble study Neurology evaluated Already on Eliquis - Lipitor dose increased to 80mg, Aspirin added - will discuss risks versus benefits of adding aspirin to Eliquis with Neurology. Telemonitoring for 24 hours. PT/ST 2. Atrial Fibrillation - continue Metoprolol and Eliquis. 3. CKD 3 - Stable 4. DM 2 - maintain on Novolog sliding scale. 5. HTN - resumed on Lopressor. ARB and Norvasc held for now. 6. Hypothyroidism - TSH elevated. Continue Levothyroxine, dose increased to 87.5 mcg DVT Px - on Eliquis.
--- NOTE | 2019-11-16 16:45 | PN ---
Physical Exam: SUBJECTIVE: Patient seen and examined at bedside, reports diplopia, denies any acute headache, nausea, vomiting, palpitations or chest pain. OBJECTIVE: Vital Signs Period Temp Pulse Resp BP Sys/Page Pulse Ox Last 24 Hr 97.6 F-98.2 F 51-60 16-25 127-173/58-105 97-100 GENERAL: AAOx3, in no acute distress HEENT: NCAT, PERRLA, EOMI, sclera anicteric, conjunctiva clear, oropharynx clear w/o exudates. MMM. NECK: Normal ROM, supple, no lymphadenopathy, JVD, or masses LUNGS: CTABL no wheezes/ rhonchi/ rales. No distress, speaks in full sentences. No increased work of breathing. HEART: RRR, normal S1 S2, no M/R/G, peripheral pulses 2+ and equal b/l ABDOMEN: Soft, non-tender, + BS. No guarding or rebound. No hepatomegaly or splenomegaly. MSK: ROM WNL, NO CVA tenderness EXTREMITIES: Normal inspection. No peripheral edema. No clubbing or cyanosis. NEUROLOGICAL: CN II-XII intact. Normal speech, gait not observed, no focal sensorimotor deficits. b/l Nystagmus on horizontal gaze, limited adduction of the left eye on right gaze. PSYCH: Normal mood, normal affect. SKIN: Warm, Dry, normal turgor, no rashes or lesions noted Laboratory Results - last 24 hr 11/16/19 11/16/19 11/16/19 02:14 02:30 02:30 WBC 5.5 RBC 4.51 Hgb 13.0 Hct 39.3 MCV 87.3 MCH 28.9 MCHC 33.2 RDW 14.5 Plt Count 160 MPV 9.4 Absolute Neuts (auto) 3.2 Neutrophils % 58.8 Lymphocytes % 30.2 D Monocytes % 9.2 Eosinophils % 1.3 D Basophils % 0.5 Nucleated RBC % 0 PT with INR INR PTT (Actin FS) Sodium Potassium Chloride Carbon Dioxide Anion Gap BUN Creatinine Est GFR (CKD-EPI)AfAm Est GFR (CKD-EPI)NonAf POC Glucometer 142 Random Glucose Calcium Total Bilirubin AST ALT Alkaline Phosphatase Creatine Kinase Creatine Kinase Index CK-MB (CK-2) Troponin I Total Protein Albumin Triglycerides 112 Cholesterol 174 Total LDL Cholesterol 79 HDL Cholesterol 75 H TSH Free T4 Thyroxine (T4) Resin T3 Uptake Urine Color Urine Appearance Urine pH Ur Specific [place] Urine Protein Urine Glucose (UA) Urine Ketones Urine Blood Urine Nitrite Urine Bilirubin Urine Urobilinogen Ur Leukocyte Esterase Urine WBC (Auto) Urine RBC (Auto) Urine Casts (Auto) U Epithel Cells (Auto) Urine Bacteria (Auto) Blood Type Antibody Screen 11/16/19 11/16/19 11/16/19 02:30 03:41 07:23 WBC RBC Hgb Hct MCV MCH MCHC RDW Plt Count MPV Absolute Neuts (auto) Neutrophils % Lymphocytes % Monocytes % Eosinophils % Basophils % Nucleated RBC % PT with INR INR PTT (Actin FS) Sodium Potassium Chloride Carbon Dioxide Anion Gap BUN Creatinine Est GFR (CKD-EPI)AfAm Est GFR (CKD-EPI)NonAf POC Glucometer 74 Random Glucose Calcium Total Bilirubin AST ALT Alkaline Phosphatase Creatine Kinase Creatine Kinase Index CK-MB (CK-2) Troponin I Total Protein Albumin Triglycerides Cholesterol Total LDL Cholesterol HDL Cholesterol TSH Free T4 Thyroxine (T4) Resin T3 Uptake Urine Color Yellow Urine Appearance Clear Urine pH 7.0 Ur Specific [place] 1.007 L Urine Protein 2+ H Urine Glucose (UA) Negative Urine Ketones Negative Urine Blood Trace Urine Nitrite Negative Urine Bilirubin Negative Urine Urobilinogen 0.2 Ur Leukocyte Esterase Trace Urine WBC (Auto) 31 Urine RBC (Auto) 16 Urine Casts (Auto) 0 U Epithel Cells (Auto) 13 Urine Bacteria (Auto) 87 Blood Type B POSITIVE Antibody Screen Negative 11/16/19 11/16/19 11/16/19 08:57 08:57 11:23 WBC RBC Hgb Hct MCV MCH MCHC RDW Plt Count MPV Absolute Neuts (auto) Neutrophils % Lymphocytes % Monocytes % Eosinophils % Basophils % Nucleated RBC % PT with INR 12.00 INR 1.02 PTT (Actin FS) 34.5 Sodium Potassium Chloride Carbon Dioxide Anion Gap BUN Creatinine Est GFR (CKD-EPI)AfAm Est GFR (CKD-EPI)NonAf POC Glucometer 97 Random Glucose Calcium Total Bilirubin AST ALT Alkaline Phosphatase Creatine Kinase Creatine Kinase Index CK-MB (CK-2) Troponin I Total Protein Albumin Triglycerides 66 Cholesterol 185 Total LDL Cholesterol 85 HDL Cholesterol 83 H TSH 8.16 H Free T4 0.95 Thyroxine (T4) 7.2 Resin T3 Uptake 33.9 Urine Color Urine Appearance Urine pH Ur Specific [place] Urine Protein Urine Glucose (UA) Urine Ketones Urine Blood Urine Nitrite Urine Bilirubin Urine Urobilinogen Ur Leukocyte Esterase Urine WBC (Auto) Urine RBC (Auto) Urine Casts (Auto) U Epithel Cells (Auto) Urine Bacteria (Auto) Blood Type Antibody Screen 11/16/19 Unknown WBC RBC Hgb Hct MCV MCH MCHC RDW Plt Count MPV Absolute Neuts (auto) Neutrophils % Lymphocytes % Monocytes % Eosinophils % Basophils % Nucleated RBC % PT with INR INR PTT (Actin FS) Sodium 139 Potassium 4.3 Chloride 105 Carbon Dioxide 27 Anion Gap 6 L BUN 30.3 H Creatinine 1.5 H Est GFR (CKD-EPI)AfAm 39.09 Est GFR (CKD-EPI)NonAf 33.73 POC Glucometer Random Glucose 130 H Calcium 8.9 Total Bilirubin 0.3 AST 21 ALT 29 Alkaline Phosphatase 143 H Creatine Kinase 255 H Creatine Kinase Index 2.3 CK-MB (CK-2) 6.0 H Troponin I < 0.02 Total Protein 7.0 Albumin 3.5 Triglycerides Cholesterol Total LDL Cholesterol HDL Cholesterol TSH Free T4 Thyroxine (T4) Resin T3 Uptake Urine Color Urine Appearance Urine pH Ur Specific [place] Urine Protein Urine Glucose (UA) Urine Ketones Urine Blood Urine Nitrite Urine Bilirubin Urine Urobilinogen Ur Leukocyte Esterase Urine WBC (Auto) Urine RBC (Auto) Urine Casts (Auto) U Epithel Cells (Auto) Urine Bacteria (Auto) Blood Type Antibody Screen Active Medications Generic Name Dose Route Start Last Admin Trade Name Freq PRN Reason Stop Dose Admin Apixaban 5 mg 11/16/19 10:00 11/16/19 09:29 Eliquis - PO 5 mg BID KARINA Administration Aspirin 81 mg 11/16/19 10:00 11/16/19 09:29 Asa - PO 81 mg DAILY KARINA Administration Atorvastatin Calcium 80 mg 11/16/19 22:00 Lipitor - PO HS KARINA Sodium Chloride 1,000 mls @ 50 mls/hr 11/16/19 06:45 11/16/19 06:49 1/2 Normal Saline IV 11/17/19 06:36 50 mls/hr ASDIR KARINA Administration Insulin Aspart 1 vial 11/16/19 07:00 11/16/19 11:28 Novolog Vial Sliding Scale - SQ Not Given ACHS [facility] Protocol Levothyroxine Sodium 37.5 mcg/ 87.5 mcg 11/17/19 07:00 Levothyroxine Sodium 50 mcg PO DAILY@0700 [facility] Metoprolol Tartrate 50 mg 11/16/19 10:00 11/16/19 09:30 Lopressor - PO 50 mg BID KARINA Administration ASSESSMENT/PLAN: 74 year old female patient with past medical history that includes HTN, DM, Hypothyroidism, HLD, and AFib on Eliquis, who presented to the emergency room with 1 day of not feeling well and having double vision with unsteady gait. #Acute Left partial third nerve palsy - Possibly 2/2 to diabetic neuropathy vs MELO vs pcom aneurysm vs CVA - CT head: no acute pathology, bleeding - MRI/MRA brain pending - ECHO: pending - Carotid duplex: Mild atherosclerotic disease, L>R - Neurology consulted, recs appreciated - Opththalmology consulted, most likely will not be able to see patient at [facility], will f/u as out pt - Speech/swallow eval: Passed Dys screen-Reg diet/thin liquid #Hx of CKD - Creatinine 1.5, stable - Nephro consulted - Renal u/s: Mild atrophic Right kidney with mild hydronephrosis - avoid nephrotoxic drugs #Hx of DM - Insulin Sliding Scale - BGMs #Hx of HTN - Holding ARB and Norvasc for now - Continue Lopressor #Hx of AFib - Continue Eliquis and Metoprolol #Hx of Hypothyroidism - TSH elevated at: - Continue Synthroid #FEN - No standing fluids at this time - Continue to monitor Electrolytes - Diabetic/Sodium controlled Diet. #DVT PPx - on Eliquis #Dispo: -will continue to monitor in tele Visit type - Emergency Visit Emergency Visit: Yes ED Registration Date: 11/16/19 Care time: The patient presented to the Emergency Department on the above date and was hospitalized for further evaluation of their emergent condition. - New Patient This patient is new to me today: No - Critical Care Critical Care patient: No - Discharge Referral Referred to [facility] Med P.C.: No - Medication Review Med list reviewed for High Risk Meds patients 65 and older: Yes ATTENDING PHYSICIAN STATEMENT I saw and evaluated the patient. I reviewed the resident's note and discussed the case with the resident. I agree with the resident's findings and plan as documented. SUBJECTIVE: OBJECTIVE: ASSESSMENT AND PLAN:
[2019-11-16] MEDS ORDERED: METOPROLOL TARTRATE 50 MG TABLET (FP) ONE (22:56)
[2019-11-16] MEDS ORDERED: ATORVASTATIN CA 80 MG TABLET (FP) ONE (22:56)
[2019-11-16] MEDS: ATORVASTATIN CA 80 MG TABLET (FP) PO SCH (23:03)
[2019-11-17] MEDS ORDERED: LEVOTHYROXINE NA 75 MCG TABLET (FP) ONE (07:00)
[2019-11-17] MEDS ORDERED: LEVOTHYROXINE NA 50 MCG TABLET (FP) ONE (07:00)
[2019-11-17] MEDS: INSULIN SLIDING SCALE (NOVOLOG) 1 VIAL SQ SCH ×4 (07:06→21:16)
[2019-11-17] MEDS: LEVOTHYROXINE PO SCH (07:06)
--- NOTE | 2019-11-17 09:30 | CON.CARD ---
Consult Consult Specialty:: Cardiology Referred by:: Hospitalist Medicine Reason for Consultation:: Recurrent stroke, Afib - History of Present Illness Chief Complaint: Diplopia dizziness, and imbalance 2/2 acute pontine stroke History of Present Illness: HPI 74 year old female history of htn, dm, hypothyroidism, hld, paroxysmal atrial fibrillation on eliquis, TRUE-I cough. She came with with double vision and unsteady gait starting wednesday afternoon. Patient denies any weakness, numbness, loc or seizure like activity, chest pain, palpitations, true syncope, orthopnea, PND or LE edema. Last office visit 08/29/2019 - History Source History Provided By: Patient Limitations to Obtaining History: No Limitations - Past Medical History Cardio/Vascular: Yes: AFIB, HTN Renal/: Yes: Renal Inusuff ...: No - Alcohol/Substance Use Hx Alcohol Use: No - Smoking History Smoking history: Never smoked Have you smoked in the past 12 months: No Home Medications - Allergies Allergies/Adverse Reactions: Allergies Allergy/AdvReac Type Severity Reaction Status Date / Time No Known Allergies Allergy Verified 10/30/19 06:55 - Home Medications Home Medications: Ambulatory Orders Apixaban [Eliquis] 5 mg PO BID 30 Days #60 tablet 01/28/18 Aspirin [ASA -] 81 mg PO DAILY 01/28/18 Levothyroxine Sodium [Synthroid] 75 mcg PO DAILY 01/28/18 Omeprazole 20 mg PO BID 01/28/18 Amlodipine Besylate [Norvasc -] 10 mg PO DAILY 11/16/19 Atorvastatin Ca [Lipitor] 40 mg PO HS 11/16/19 Gabapentin 400 mg PO TID 11/16/19 Insulin Lispro [Humalog Kwikpen U-200] 10 units SQ AC 11/16/19 Metoprolol Tartrate 100 mg PO BID 11/16/19 Telmisartan 40 mg PO DAILY 11/16/19 Family Medical History Family History: Denies Family Hx Nuerologic Problems: Father (stroke) Review of Systems - Review of Systems Eyes: reports: Double Vision Neurological: reports: Incoordination, Unsteady Gait Vital Signs: Vital Signs Temperature 98.8 F 11/17/19 05:00 Pulse Rate 48 L 11/17/19 05:00 Respiratory Rate 18 11/17/19 05:00 Blood Pressure 136/64 11/17/19 05:00 O2 Sat by Pulse Oximetry (%) 98 11/17/19 05:00 Constitutional: Yes: No Distress, Calm Neck: Yes: Supple Respiratory: Yes: Regular, CTA Bilaterally Gastrointestinal: Yes: Normal Bowel Sounds, Soft Cardiovascular: Yes: Regular Rate and Rhythm JVD: No Carotid Bruit: No Heart Sounds: Yes: S1, S2 Edema: No - Other Data Labs, Other Data: CBC, BMP 11/16/19 02:30 11/16/19 Unknown INR, PTT INR 1.02 (0.83-1.09) 11/16/19 08:57 Troponin, BNP 11/16/19 08:57 Troponin I < 0.02 Troponin, BNP 11/16/19 08:57 Troponin I < 0.02 SB @ 58 w/o ST-T changes Echo: Report Reviewed Ejection Fraction %: LVEF > or = 40 % Problem List - Problems (1) Type 2 diabetes mellitus Code(s): E11.9 - TYPE 2 DIABETES MELLITUS WITHOUT COMPLICATIONS Qualifiers: Diabetes mellitus fci insulin use: with rn long term care use Diabetes mellitus complication status: with kidney complications Diabetes mellitus complication detail: with nephropathy Qualified Code(s): E11.21 - Type 2 diabetes mellitus with diabetic nephropathy; Z79.4 - long-term (current) use of insulin (2) Hyperlipidemia associated with type 2 diabetes mellitus Code(s): E11.69 - TYPE 2 DIABETES MELLITUS WITH OTHER SPECIFIED COMPLICATION; E78.5 - HYPERLIPIDEMIA, UNSPECIFIED (3) Left pontine stroke Code(s): I63.50 - CEREB INFRC DUE TO UNSP OCCLS OR STENOS OF UNSP CEREB ARTERY (4) Cerebrovascular accident (CVA) Code(s): I63.9 - CEREBRAL INFARCTION, UNSPECIFIED Qualifiers: CVA mechanism: unspecified Qualified Code(s): I63.9 - Cerebral infarction, unspecified (5) Diplopia Code(s): H53.2 - DIPLOPIA (6) Afib Code(s): I48.91 - UNSPECIFIED ATRIAL FIBRILLATION Qualifiers: Atrial fibrillation type: paroxysmal Qualified Code(s): I48.0 - Paroxysmal atrial fibrillation (7) Hypertension Code(s): I10 - ESSENTIAL (PRIMARY) HYPERTENSION Qualifiers: Hypertension type: essential hypertension Qualified Code(s): I10 - Essen tial (primary) hypertension (8) Hypothyroidism Code(s): E03.9 - HYPOTHYROIDISM, UNSPECIFIED Qualifiers: Hypothyroidism type: unspecified Qualified Code(s): E03.9 - Hypothyroidism, unspecified Assessment/Plan 11/16/2019 CT Head - no acute intracranial findings, some volume loss, mild periventricular chronic ischemic changes 11/16/2019 Brain MRI, MRA - Acute pontine stroke, small chronic left basal ganglia stroke, possoble small chronic right frontal cortical infarct 11/16/2019 Carotid Duplex - mild atheroma L>R, no hemodynamically significant changes. 11/16/2019 Echo: Normal biventricular size and fxn, tr TR Carotid US: 08/22/2018 Diffuse bilateral intimal thickening with calcified plaque involving distal left CCA, left carotid bulb and prox LICA. No hemodynamically significant stenosis EKG:SB@ 58PRWP c/w previous 02/21/2019, no sig change Holter Monitor: 02/16/2018 NSR 1.4% PAC, 0.4% PAF avg rate 66 bpm, range 50-137 bpm Echocardiography: 01/28/18 normal LV size and systolic function, LV diastolic dysfunction, mild TR Nuclear stress: 01/28/2018 No ischemia LVEF 69%, had episode of rapid afib up to 180 bpm with rate-related changes during exercise spontaneously converted NSR Assessment: 1. Unsteady gait, double vision, occipital headache referable to acute pontine stroke, h/o previous strokes 2. Paroxysmal atrial fibrillation with RVR -> NSR on Eliquis 3. CKD 3 with proteinuria likely diabetic nephropathy 4. Type 2 DM 5. HTN/HCVD 6. Hypothyroidism 7. Hyperlipidemia 8. COPD with h/o exacerbation 9. Diastolic dysfunction 10. Carotid atherosclerotic plaques w/o significant stenosis 11. Possible TRUE-I associated cough Plan: 1. Agree with addition aspirin 81 qd to Eliquis 5 bid, increased Lipitor 80 qd, Norvasc 10 qd. Lopressor 100 bid, Micardis 40 qd or equivalent as hemodynamics tolerate 2. Previous holter monitor confirms rare paroxysmal afib recurrence, continue telemetry monitoring 3. PT and speech/swallow therapy 4. Thank you for consultative opportunity
[2019-11-17] MEDS: APIXABAN 5 MG TABLET PO SCH ×2 (09:36→21:18)
[2019-11-17] MEDS: amLODIPine BESYLATE 10 MG TABLET (FP) PO SCH (09:36)
[2019-11-17] MEDS: ASPIRIN 81 MG CHEWABLE TABLETS PO SCH (09:36)
[2019-11-17] MEDS: METOPROLOL TARTRATE 50 MG TABLET (FP) PO SCH ×2 (09:36→21:18)
[2019-11-17] MEDS ORDERED: PATIENT'S OWN MEDICATION (NON-FORMULARY) (Metoprolol Tartrate [Metoprolol Tartrate] 100 MG PO SCH (10:00)
[2019-11-17] MEDS ORDERED: METOPROLOL TARTRATE 50 MG TABLET (FP) PO SCH (10:00)
[2019-11-17 11:46] LABS: BLOOD UREA NITROGEN 23.6 mg/dL (7-18); CALCIUM 8.8 mg/dL (8.5-10.1); CREATININE 1.2 mg/dL (0.55-1.3); MAGNESIUM 2.2 mg/dL (1.8-2.4); PHOSPHOROUS 3.5 mg/dL (2.5-4.9); POTASSIUM 4.2 mmol/L (3.5-5.1)
--- NOTE | 2019-11-17 12:11 | PN ---
Progress Note, SYSTEMS INTEGRATOR - Note Progress Note: Selected Entries 11/17/19 11/17/19 01:00 09:33 Breakfast 75% Eating (Feeding Independent ) Ability Laboratory Tests 11/16/19 02:30 WBC 5.5 MRI-Acute Pontine stroke Speech/swallow functional
--- NOTE | 2019-11-17 12:36 | PN ---
Teaching Attending Note Name of Resident: Gino Land ATTENDING PHYSICIAN STATEMENT I saw and evaluated the patient. I reviewed the resident's note and discussed the case with the resident. I agree with the resident's findings and plan as documented. SUBJECTIVE: Feeling well, mild occipital headache resolved, ongoing double vision and unsteady gait. No facial/limb numbness or weakness. OBJECTIVE: Afebrile, Hemodynamically Stable. Last Vital Signs Temp Pulse Resp BP Pulse Ox 98.8 F 48 L 18 136/64 98 11/17/19 05:00 11/17/19 05:00 11/17/19 05:00 11/17/19 05:00 11/17/19 05:00 HEENT - Atraumatic, Normocephalic. Heart - S1, S2, kimberly Lungs - clear to auscultation Abdomen - Soft, non-tender. Bowel sounds normal. Extremities - no edema, no calf tenderness. Neuro - AAO x 3. MIL. Strabismus R eye to R, defective rightward gaze left eye (limitation of abduction). Tone/Power normal all extremities. Laboratory Results - last 24 hr 11/16/19 11/16/19 11/16/19 04:05 08:57 16:40 WBC Corrected WBC (auto) RBC Hgb Hct MCV MCH MCHC RDW Plt Count MPV Absolute Neuts (auto) Neutrophils % Lymphocytes % Monocytes % Eosinophils % Basophils % Nucleated RBC % Platelet Estimate Platelet Comment Sodium Potassium Chloride Carbon Dioxide Anion Gap BUN Creatinine Est GFR (CKD-EPI)AfAm Est GFR (CKD-EPI)NonAf POC Glucometer 113 Random Glucose Calcium Phosphorus Magnesium Creatine Kinase Creatine Kinase Index CK-MB (CK-2) Troponin I < 0.02 Triglycerides 66 Cholesterol 185 Total LDL Cholesterol 85 HDL Cholesterol 83 H TSH 8.16 H Free T4 0.95 Thyroxine (T4) 7.2 Resin T3 Uptake 33.9 COVID-19 ([facility]) Not detected 11/16/19 11/17/19 11/17/19 23:00 07:04 10:25 WBC Cancelled Corrected WBC (auto) Cancelled RBC Cancelled Hgb Cancelled Hct Cancelled MCV Cancelled MCH Cancelled MCHC Cancelled RDW Cancelled Plt Count Cancelled MPV Cancelled Absolute Neuts (auto) Cancelled Neutrophils % Cancelled Lymphocytes % Cancelled Monocytes % Cancelled Eosinophils % Cancelled Basophils % Cancelled Nucleated RBC % Cancelled Platelet Estimate Cancelled Platelet Comment Cancelled Sodium Potassium Chloride Carbon Dioxide Anion Gap BUN Creatinine Est GFR (CKD-EPI)AfAm Est GFR (CKD-EPI)NonAf POC Glucometer 73 59 Random Glucose Calcium Phosphorus Magnesium Creatine Kinase Creatine Kinase Index CK-MB (CK-2) Troponin I Triglycerides Cholesterol Total LDL Cholesterol HDL Cholesterol TSH Free T4 Thyroxine (T4) Resin T3 Uptake COVID-19 ([facility]) 11/17/19 11/17/19 10:25 11:29 WBC Corrected WBC (auto) RBC Hgb Hct MCV MCH MCHC RDW Plt Count MPV Absolute Neuts (auto) Neutrophils % Lymphocytes % Monocytes % Eosinophils % Basophils % Nucleated RBC % Platelet Estimate Platelet Comment Sodium 138 Potassium 4.2 Chloride 105 Carbon Dioxide 26 Anion Gap 7 L BUN 23.6 H Creatinine 1.2 Est GFR (CKD-EPI)AfAm 51.20 Est GFR (CKD-EPI)NonAf 44.17 POC Glucometer 142 Random Glucose 142 H Calcium 8.8 Phosphorus 3.5 Magnesium 2.2 Creatine Kinase 170 Creatine Kinase Index 2.6 CK-MB (CK-2) 4.5 H Troponin I Triglycerides Cholesterol Total LDL Cholesterol HDL Cholesterol TSH Free T4 Thyroxine (T4) Resin T3 Uptake COVID-19 ([facility]) Current Medications Generic Name Dose Route Start Last Admin Trade Name Freq PRN Reason Stop Dose Admin Amlodipine Besylate 10 mg 11/17/19 10:00 11/17/19 09:36 Norvasc - PO 10 mg DAILY KARINA Administration Apixaban 5 mg 11/16/19 10:00 11/17/19 09:36 Eliquis - PO 5 mg BID KARINA Administration Aspirin 81 mg 11/16/19 10:00 11/17/19 09:36 Asa - PO 81 mg DAILY KARINA Administration Atorvastatin Calcium 80 mg 11/16/19 22:00 11/16/19 23:03 Lipitor - PO 80 mg HS KARINA Administration Insulin Aspart 1 vial 11/16/19 07:00 11/17/19 11:39 Novolog Vial Sliding Scale - SQ Not Given ACHS [facility] Protocol Levothyroxine Sodium 37.5 mcg/ 87.5 mcg 11/17/19 07:00 11/17/19 07:06 Levothyroxine Sodium 50 mcg PO 87.5 mcg DAILY@0700 KARINA Administration Metoprolol Tartrate 50 mg 11/17/19 10:00 11/17/19 09:36 Lopressor - PO 50 mg BID KARINA Administration Home Medications Medication Instructions Recorded Apixaban [Eliquis] 5 mg PO BID 30 Days #60 tablet 01/28/18 Aspirin [ASA -] 81 mg PO DAILY 01/28/18 Levothyroxine Sodium [Synthroid] 75 mcg PO DAILY 01/28/18 Omeprazole 20 mg PO BID 01/28/18 Amlodipine Besylate [Norvasc -] 10 mg PO DAILY 11/16/19 Atorvastatin Ca [Lipitor] 40 mg PO HS 11/16/19 Gabapentin 400 mg PO TID 11/16/19 Insulin Lispro [Humalog Kwikpen 10 units SQ AC 11/16/19 U-200] Metoprolol Tartrate 100 mg PO BID 11/16/19 Telmisartan 40 mg PO DAILY 11/16/19 ASSESSMENT AND PLAN: 74 year old female with history of HTN, DM 2, Hypothyroidism, HLD, CKD 3, Atrial Fibrillation (on Eliquis), presented with unsteady gait, double vision, occipital headache. 1. Acute CVA with resulting CN deficits (III) CT Head - no acute intracranial findings, some volume loss, mild periventricular chronic ischemic changes. MRI/MRA Brain - acute pontine infarct, small chronic basal ganglia infarct Carotid Duplex - mild atheroma L>R, no hemodynamically significant changes. Echo with bubble study ordered. Neurology evaluated Already on Eliquis - Lipitor dose increased to 80mg, Aspirin added on recommendation of Neurology. Telemonitoring shows episodes of Bigeminy and slow ventricular response - Cardiology consulted for further eval and recommendations. PT/ST 2. Atrial Fibrillation - continue Metoprolol and Eliquis. 3. CKD 3 - Stable 4. DM 2 - maintain on Novolog sliding scale. 5. HTN - resumed on Lopressor, Norvasc. ARB held for now. 6. Hypothyroidism - TSH elevated. Continue Levothyroxine, dose increased to 87.5 mcg DVT Px - on Eliquis.
--- NOTE | 2019-11-17 12:57 | PN ---
Physical Exam: SUBJECTIVE: Patient seen and examined at bedside, no new complaints. OBJECTIVE: Vital Signs Period Temp Pulse Resp BP Sys/Page Pulse Ox Last 24 Hr 98.1 F-98.8 F 45-58 16-20 107-163/38-74 93-99 GENERAL: AAOx3, in no acute distress HEENT: NCAT, PERRLA, EOMI, sclera anicteric, conjunctiva clear, oropharynx clear w/o exudates. MMM. NECK: Normal ROM, supple, no lymphadenopathy, JVD, or masses LUNGS: CTABL no wheezes/ rhonchi/ rales. No distress, speaks in full sentences. No increased work of breathing. HEART: RRR, normal S1 S2, no M/R/G, peripheral pulses 2+ and equal b/l ABDOMEN: Soft, non-tender, + BS. No guarding or rebound. No hepatomegaly or splenomegaly. MSK: ROM WNL, NO CVA tenderness EXTREMITIES: Normal inspection. No peripheral edema. No clubbing or cyanosis. NEUROLOGICAL: CN II-XII intact. Normal speech, gait not observed, no focal sensorimotor deficits. b/l Nystagmus on horizontal gaze, limited adduction of the left eye on right gaze. PSYCH: Normal mood, normal affect. SKIN: Warm, Dry, normal turgor, no rashes or lesions noted Laboratory Results - last 24 hr 11/16/19 11/16/19 11/16/19 04:05 08:57 16:40 WBC Corrected WBC (auto) RBC Hgb Hct MCV MCH MCHC RDW Plt Count MPV Absolute Neuts (auto) Neutrophils % Lymphocytes % Monocytes % Eosinophils % Basophils % Nucleated RBC % Platelet Estimate Platelet Comment Sodium Potassium Chloride Carbon Dioxide Anion Gap BUN Creatinine Est GFR (CKD-EPI)AfAm Est GFR (CKD-EPI)NonAf POC Glucometer 113 Random Glucose Calcium Phosphorus Magnesium Creatine Kinase Creatine Kinase Index CK-MB (CK-2) Troponin I < 0.02 Triglycerides 66 Cholesterol 185 Total LDL Cholesterol 85 HDL Cholesterol 83 H TSH 8.16 H Free T4 0.95 Thyroxine (T4) 7.2 Resin T3 Uptake 33.9 COVID-19 ([facility]) Not detected 11/16/19 11/17/19 11/17/19 23:00 07:04 10:25 WBC Cancelled Corrected WBC (auto) Cancelled RBC Cancelled Hgb Cancelled Hct Cancelled MCV Cancelled MCH Cancelled MCHC Cancelled RDW Cancelled Plt Count Cancelled MPV Cancelled Absolute Neuts (auto) Cancelled Neutrophils % Cancelled Lymphocytes % Cancelled Monocytes % Cancelled Eosinophils % Cancelled Basophils % Cancelled Nucleated RBC % Cancelled Platelet Estimate Cancelled Platelet Comment Cancelled Sodium Potassium Chloride Carbon Dioxide Anion Gap BUN Creatinine Est GFR (CKD-EPI)AfAm Est GFR (CKD-EPI)NonAf POC Glucometer 73 59 Random Glucose Calcium Phosphorus Magnesium Creatine Kinase Creatine Kinase Index CK-MB (CK-2) Troponin I Triglycerides Cholesterol Total LDL Cholesterol HDL Cholesterol TSH Free T4 Thyroxine (T4) Resin T3 Uptake COVID-19 ([facility]) 11/17/19 11/17/19 10:25 11:29 WBC Corrected WBC (auto) RBC Hgb Hct MCV MCH MCHC RDW Plt Count MPV Absolute Neuts (auto) Neutrophils % Lymphocytes % Monocytes % Eosinophils % Basophils % Nucleated RBC % Platelet Estimate Platelet Comment Sodium 138 Potassium 4.2 Chloride 105 Carbon Dioxide 26 Anion Gap 7 L BUN 23.6 H Creatinine 1.2 Est GFR (CKD-EPI)AfAm 51.20 Est GFR (CKD-EPI)NonAf 44.17 POC Glucometer 142 Random Glucose 142 H Calcium 8.8 Phosphorus 3.5 Magnesium 2.2 Creatine Kinase 170 Creatine Kinase Index 2.6 CK-MB (CK-2) 4.5 H Troponin I Triglycerides Cholesterol Total LDL Cholesterol HDL Cholesterol TSH Free T4 Thyroxine (T4) Resin T3 Uptake COVID-19 ([facility]) Active Medications Generic Name Dose Route Start Last Admin Trade Name Freq PRN Reason Stop Dose Admin Amlodipine Besylate 10 mg 11/17/19 10:00 11/17/19 09:36 Norvasc - PO 10 mg DAILY KARINA Administration Apixaban 5 mg 11/16/19 10:00 11/17/19 09:36 Eliquis - PO 5 mg BID KARINA Administration Aspirin 81 mg 11/16/19 10:00 11/17/19 09:36 Asa - PO 81 mg DAILY KARINA Administration Atorvastatin Calcium 80 mg 11/16/19 22:00 11/16/19 23:03 Lipitor - PO 80 mg HS KARINA Administration Insulin Aspart 1 vial 11/16/19 07:00 11/17/19 11:39 Novolog Vial Sliding Scale - SQ Not Given ACHS [facility] Protocol Levothyroxine Sodium 37.5 mcg/ 87.5 mcg 11/17/19 07:00 11/17/19 07:06 Levothyroxine Sodium 50 mcg PO 87.5 mcg DAILY@0700 KARINA Administration Metoprolol Tartrate 50 mg 11/17/19 10:00 11/17/19 09:36 Lopressor - PO 50 mg BID KARINA Administration ASSESSMENT/PLAN: 74 year old female patient with past medical history that includes HTN, DM, Hypothyroidism, HLD, and AFib on Eliquis, who presented to the emergency room with 1 day of not feeling well and having double vision with unsteady gait. 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 - CT head: no acute pathology, bleeding - MRI brain: Acute Pontine infarct(1 x 0.4cm), small chronic left basal ganglia infarct, possible small chronic right frontal cortical infarct - MRA brain: No large vessel stenosis ot occlusions identified - ECHO with bubble study: pending - Carotid duplex: Mild atherosclerotic disease, L>R - Neurology consulted, recs appreciated Added aspirin 81mg qd, on eliquis 5 bid - Opththalmology consulted, most likely will not be able to see patient at [facility], will f/u as out pt - Speech/swallow eval: Passed Dys screen-Reg diet/thin liquid 80qd - Tele: episodes of Bigeminy and bradycardia - Cardiology consulted, recs appreciated Increased lipitor to 80 qd #Hx of CKD - Creatinine 1.2, stable - Nephro consulted - Renal u/s: Mild atrophic Right kidney with mild hydronephrosis - avoid nephrotoxic drugs #Hx of DM - Insulin Sliding Scale - BGMs #Hx of HTN - Holding ARB and Norvasc for now - Continue Lopressor #Hx of AFib - Continue Eliquis and Metoprolol #Hx of Hypothyroidism - TSH elevated at: - Continue Synthroid #FEN - No standing fluids at this time - Continue to monitor Electrolytes - Diabetic/Sodium controlled Diet. #DVT PPx - on Eliquis #Dispo: -will continue to monitor in tele Visit type - Emergency Visit Emergency Visit: Yes ED Registration Date: 11/16/19 Care time: The patient presented to the Emergency Department on the above date and was hospitalized for further evaluation of their emergent condition. - New Patient This patient is new to me today: No - Critical Care Critical Care patient: No - Discharge Referral Referred to [facility] Med P.C.: No - Medication Review Med list reviewed for High Risk Meds patients 65 and older: Yes ATTENDING PHYSICIAN STATEMENT I saw and evaluated the patient. I reviewed the resident's note and discussed the case with the resident. I agree with the resident's findings and plan as documented. SUBJECTIVE: OBJECTIVE: ASSESSMENT AND PLAN:
--- NOTE | 2019-11-17 15:20 | PN ---
Progress Note, Physician History of Present Illness: Pt seen and examined at bedside. She denies shortness of breath. - Current Medication List Current Medications: Active Medications Amlodipine Besylate (Norvasc -) 10 mg PO DAILY [facility] Last Admin: 11/17/19 09:36 Dose: 10 mg Documented by: Apixaban (Eliquis -) 5 mg PO BID [facility] Last Admin: 11/17/19 09:36 Dose: 5 mg Documented by: Aspirin (Asa -) 81 mg PO DAILY [facility] Last Admin: 11/17/19 09:36 Dose: 81 mg Documented by: Atorvastatin Calcium (Lipitor -) 80 mg PO HS [facility] Last Admin: 11/16/19 23:03 Dose: 80 mg Documented by: Insulin Aspart (Novolog Vial Sliding Scale -) 1 vial SQ [facility]; Protocol Last Admin: 11/17/19 11:39 Dose: Not Given Documented by: Levothyroxine Sodium 37.5 mcg/ (Levothyroxine Sodium 50 mcg) 87.5 mcg PO DAILY@0700 [facility] Last Admin: 11/17/19 07:06 Dose: 87.5 mcg Documented by: Metoprolol Tartrate (Lopressor -) 50 mg PO BID [facility] Last Admin: 11/17/19 09:36 Dose: 50 mg Documented by: - Objective Vital Signs: Vital Signs Temperature 98.4 F 11/17/19 12:00 Pulse Rate 48 L 11/17/19 12:00 Respiratory Rate 18 11/17/19 12:00 Blood Pressure 153/64 11/17/19 12:00 O2 Sat by Pulse Oximetry (%) 98 11/17/19 12:00 Constitutional: Yes: Calm Eyes: Yes: Conjunctiva Clear HENT: Yes: Atraumatic Neck: Yes: Supple Cardiovascular: Yes: S1, S2 Respiratory: Yes: CTA Bilaterally Gastrointestinal: Yes: Soft Genitourinary: Yes: WNL Musculoskeletal: Yes: WNL Edema: No Psychiatric: Yes: Oriented Labs: CBC, BMP 11/17/19 10:25 11/17/19 10:25 INR, PTT INR 1.02 (0.83-1.09) 11/16/19 08:57 Assessment/Plan Current Medications Generic Name Dose Route Start Last Admin Trade Name Freq PRN Reason Stop Dose Admin Amlodipine Besylate 10 mg 11/17/19 10:00 09/11/20 09:36 Norvasc - PO 10 mg DAILY KARINA Administration Apixaban 5 mg 11/16/19 10:00 11/17/19 09:36 Eliquis - PO 5 mg BID KARINA Administration Aspirin 81 mg 11/16/19 10:00 11/17/19 09:36 Asa - PO 81 mg DAILY KARINA Administration Atorvastatin Calcium 80 mg 11/16/19 22:00 11/16/19 23:03 Lipitor - PO 80 mg HS KARINA Administration Insulin Aspart 1 vial 11/16/19 07:00 11/17/19 11:39 Novolog Vial Sliding Scale - SQ Not Given ACHS [facility] Protocol Levothyroxine Sodium 37.5 mcg/ 87.5 mcg 11/17/19 07:00 11/17/19 07:06 Levothyroxine Sodium 50 mcg PO 87.5 mcg DAILY@0700 KARINA Administration Metoprolol Tartrate 50 mg 11/17/19 10:00 11/17/19 09:36 Lopressor - PO 50 mg BID KARINA Administration Impression 1. CKD 2. a-fib 3. double vision 4. unsteady gait 5. hypothyroidism 6. hld 7. r/o cva Plan - renal function is improved - avoid nephrotoxins - avoid nsaids - repeat labs in am Dr Wahl
--- NOTE | 2019-11-17 16:29 | PN ---
Progress Note (short form) - Note Progress Note: 74 year old female history of htn, dm, hypothyroidism, hld, atrial fibrillation on eliquis. She came with with double vision and unsteady gait. It started wednesday afternoon. Patient denies any weakness , numbness, loc or seizure like activity. Patient has normal ct head. -- no new neurological symptoms, pontine stroke confirmed on mri NEUROLOGICAL EXAMINATION Alert and follow command, neck is supple vss there is nystagmus on right lateral gaze on right eye and there is limitation of abduction on left eye on right gaze there is is no limitation on left lateral gaze pupil is reactive ext is normal in strength ct head unremarkable mri of brain showed pontine stroke and carotid ultrasound unremarkable Assessment/Plan suspect left partial third nerve injury diabetic neuropathy vs pcom aneurysm ( less marcelo ) Plan-- continue aspirin and statin and eliquis - pt and speech therapy - tele monitoring as perprimary Thanking you so much Reynold Mcdonough MD
[2019-11-17] MEDS: ATORVASTATIN CA 80 MG TABLET (FP) PO SCH (21:18)
[2019-11-18] MEDS: INSULIN SLIDING SCALE (NOVOLOG) 1 VIAL SQ SCH ×4 (06:25→21:36)
[2019-11-18] MEDS ORDERED: LEVOTHYROXINE NA 50 MCG TABLET (FP) ONE (06:26)
[2019-11-18] MEDS ORDERED: LEVOTHYROXINE NA 75 MCG TABLET (FP) ONE (06:26)
[2019-11-18] MEDS: LEVOTHYROXINE PO SCH (06:27)
[2019-11-18 07:04] LABS: BASO % 0.6 % (0-2.0); EOS % 1.4 % (0-4.5); HEMATOCRIT 40.6 % (32.4-45.2); HEMOGLOBIN 13.6 GM/dL (10.7-15.3); LYMPH % 28.1 % (8-40); MCH 28.6 pg (25.7-33.7); MCHC 33.4 g/dl (32.0-36.0); MEAN CELL VOLUME 85.6 fl (80-96); MEAN PLT VOLUME 9.9 fl (7.5-11.1); MONO % 9.1 % (3.8-10.2); NEUT % 60.8 % (42.8-82.8); PLATELET COUNT 173 K/MM3 (134-434); RBC 4.74 M/mm3 (3.60-5.2); RDW 13.8 % (11.6-15.6); WHITE BLOOD COUNT 6.3 K/mm3 (4.0-10.0)
[2019-11-18 07:19] LABS: ALBUMIN 3.1 g/dl (3.4-5.0); BILIRUBIN,TOTAL 0.4 mg/dL (0.2-1); BLOOD UREA NITROGEN 25.6 mg/dL (7-18); CALCIUM 8.4 mg/dL (8.5-10.1); CREATININE 1.3 mg/dL (0.55-1.3); MAGNESIUM 1.9 mg/dL (1.8-2.4); PHOSPHOROUS 3.7 mg/dL (2.5-4.9); POTASSIUM 4.2 mmol/L (3.5-5.1); TOT PROT 6.4 g/dl (6.4-8.2)
--- NOTE | 2019-11-18 08:42 | PN ---
Progress Note, Physician Chief Complaint: Pt A&ox3; no chest pain, palpitations, or dyspnea. 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 History of Present Illness: Ms. Hong is a 74 year old female (b. Rolan) with PM history of htn, dm, hypothyroidism, hld, paroxysmal atrial fibrillation on eliquis, TRUE-I cough. She came with with double vision and unsteady gait starting Wednesday afternoon. Patient denies any weakness, numbness, loc or seizure like activity, chest pain, palpitations, true syncope, orthopnea, PND or LE edema. Last office visit 08/29/2019 - Current Medication List Current Medications: Active Medications Amlodipine Besylate (Norvasc -) 10 mg PO DAILY [facility] Last Admin: 11/17/19 09:36 Dose: 10 mg Documented by: Apixaban (Eliquis -) 5 mg PO BID [facility] Last Admin: 11/17/19 21:18 Dose: 5 mg Documented by: Aspirin (Asa -) 81 mg PO DAILY [facility] Last Admin: 11/17/19 09:36 Dose: 81 mg Documented by: Atorvastatin Calcium (Lipitor -) 80 mg PO HS [facility] Last Admin: 11/17/19 21:18 Dose: 80 mg Documented by: Insulin Aspart (Novolog Vial Sliding Scale -) 1 vial SQ [facility]; Protocol Last Admin: 11/18/19 06:25 Dose: Not Given Documented by: Levothyroxine Sodium 37.5 mcg/ (Levothyroxine Sodium 50 mcg) 87.5 mcg PO DAILY@0700 [facility] Last Admin: 11/18/19 06:27 Dose: 87.5 mcg Documented by: Metoprolol Tartrate (Lopressor -) 50 mg PO BID [facility] Last Admin: 11/17/19 21:18 Dose: 50 mg Documented by: - Objective Vital Signs: Vital Signs Temperature 98.2 F 11/18/19 06:22 Pulse Rate 54 L 11/18/19 06:22 Respiratory Rate 17 11/18/19 06:22 Blood Pressure 140/62 11/18/19 06:22 O2 Sat by Pulse Oximetry (%) 97 11/18/19 06:22 Constitutional: Yes: No Distress Eyes: Yes: WNL HENT: Yes: WNL Neck: Yes: WNL Cardiovascular: Yes: Murmur, S1, S2 Respiratory: Yes: WNL Gastrointestinal: Yes: Soft ...Rectal Exam: Yes: Deferred Genitourinary: No: Anuria Breast(s): Yes: WNL Musculoskeletal: Yes: WNL Extremities: Yes: WNL Edema: No Peripheral Pulses WNL: Yes Integumentary: Yes: WNL Neurological: Yes: WNL Psychiatric: Yes: WNL Labs: CBC, BMP 11/18/19 05:40 11/18/19 05:40 INR, PTT INR 1.02 (0.83-1.09) 11/16/19 08:57 Abnormal Lab Results 11/17/19 11/18/19 10:25 05:40 Anion Gap 7 L 7 L BUN 23.6 H 25.6 H Random Glucose 142 H 120 H Calcium 8.4 L CK-MB (CK-2) 4.5 H Albumin 3.1 L - ....Imaging EKG: Image Reviewed Assessment/Plan Assessment: 1. Unsteady gait, double vision, occipital headache referable to acute pontine stroke, h/o previous strokes 2. Paroxysmal atrial fibrillation with RVR -> NSR on Eliquis 3. CKD 3 with proteinuria likely diabetic nephropathy 4. Type 2 DM 5. HTN/HCVD 6. Hypothyroidism 7. Hyperlipidemia 8. COPD with h/o exacerbation 9. Diastolic dysfunction 10. Mild carotid atherosclerotic plaques w/o significant stenosis 11. Possible TRUE-I associated cough 12. diastolic CHF Plan: 1. On aspirin 81 qd; Eliquis 5 bid, Lipitor 80 qd, Norvasc 10 qd, Lopressor 100 bid. Losartan 25 mg daily started 11/18/19. 2. Previous holter monitor confirms rare paroxysmal afib recurrence, continue telemetry monitoring 3. PT and speech/swallow therapy 4. On Synthroid; elevated TSH, normal free T4 and T4, resin T3 uptake. 5. Keep electrolytes WNL. CC time spent: 35 minutes.
[2019-11-18] MEDS: APIXABAN 5 MG TABLET PO SCH ×2 (09:32→21:18)
[2019-11-18] MEDS: METOPROLOL TARTRATE 50 MG TABLET (FP) PO SCH ×2 (09:32→21:18)
[2019-11-18] MEDS: amLODIPine BESYLATE 10 MG TABLET (FP) PO SCH (09:32)
[2019-11-18] MEDS: ASPIRIN 81 MG CHEWABLE TABLETS PO SCH (09:32)
[2019-11-18] MEDS: LOSARTAN POTASSIUM 25 MG TABLET PO SCH (09:32)
[2019-11-18] MEDS ORDERED: METOPROLOL TARTRATE 50 MG TABLET (FP) PO SCH ×2 (09:37→09:40)
[2019-11-18] MEDS ORDERED: METOPROLOL TARTRATE 50 MG TABLET (FP) PO ONE (09:42)
--- NOTE | 2019-11-18 11:44 | PN ---
Teaching Attending Note Name of Resident: Marguerite Grimm ATTENDING PHYSICIAN STATEMENT I saw and evaluated the patient. I reviewed the resident's note and discussed the case with the resident. I agree with the resident's findings and plan as documented. SUBJECTIVE: Headache resolved, ongoing double vision and unsteady gait. No facial/limb numbness or weakness. OBJECTIVE: Afebrile, Hemodynamically Stable. Last Vital Signs Temp Pulse Resp BP Pulse Ox 97.6 F 70 16 143/61 99 11/18/19 10:00 11/18/19 10:00 11/18/19 10:21 11/18/19 10:11/18/19 10:21 Heart - S1, S2, SR Lungs - clear to auscultation Abdomen - Soft, non-tender. Bowel sounds normal. Extremities - no edema, no calf tenderness. Neuro - AAO x 3. MIL. Strabismus R eye improved, defective rightward gaze left eye (limitation of abduction). Tone/Power normal all extremities. Laboratory Results - last 24 hr 11/17/19 11/17/19 11/18/19 10:25 21:10 05:40 WBC 6.3 RBC 4.74 Hgb 13.6 Hct 40.6 MCV 85.6 MCH 28.6 MCHC 33.4 RDW 13.8 Plt Count 173 MPV 9.9 Absolute Neuts (auto) 3.8 Neutrophils % 60.8 Lymphocytes % 28.1 Monocytes % 9.1 Eosinophils % 1.4 Basophils % 0.6 Nucleated RBC % 0 Sodium 138 Potassium 4.2 Chloride 105 Carbon Dioxide 26 Anion Gap 7 L BUN 23.6 H Creatinine 1.2 Est GFR (CKD-EPI)AfAm 51.20 Est GFR (CKD-EPI)NonAf 44.17 POC Glucometer 168 Random Glucose 142 H Calcium 8.8 Phosphorus 3.5 Magnesium 2.2 Total Bilirubin AST ALT Alkaline Phosphatase Creatine Kinase 170 Creatine Kinase Index 2.6 CK-MB (CK-2) 4.5 H Total Protein Albumin 11/18/19 11/18/19 05:40 06:25 WBC RBC Hgb Hct MCV MCH MCHC RDW Plt Count MPV Absolute Neuts (auto) Neutrophils % Lymphocytes % Monocytes % Eosinophils % Basophils % Nucleated RBC % Sodium 139 Potassium 4.2 Chloride 106 Carbon Dioxide 26 Anion Gap 7 L BUN 25.6 H Creatinine 1.3 Est GFR (CKD-EPI)AfAm 46.47 Est GFR (CKD-EPI)NonAf 40.10 POC Glucometer 109 Random Glucose 120 H Calcium 8.4 L Phosphorus 3.7 Magnesium 1.9 Total Bilirubin 0.4 AST 20 ALT 26 Alkaline Phosphatase 97 Creatine Kinase Creatine Kinase Index CK-MB (CK-2) Total Protein 6.4 Albumin 3.1 L Current Medications Generic Name Dose Route Start Last Admin Trade Name Jesseq PRN Reason Stop Dose Admin Amlodipine Besylate 10 mg 11/17/19 10:00 11/18/19 09:32 Norvasc - PO 10 mg DAILY KARINA Administration Apixaban 5 mg 11/16/19 10:00 11/18/19 09:32 Eliquis - PO 5 mg BID KARINA Administration Aspirin 81 mg 11/16/19 10:00 11/18/19 09:32 Asa - PO 81 mg DAILY KARINA Administration Atorvastatin Calcium 80 mg 11/16/19 22:00 11/17/19 21:18 Lipitor - PO 80 mg HS KARINA Administration Insulin Aspart 1 vial 11/16/19 07:00 11/18/19 06:25 Novolog Vial Sliding Scale - SQ Not Given ACHS [facility] Protocol Levothyroxine Sodium 37.5 mcg/ 87.5 mcg 11/17/19 07:00 11/18/19 06:27 Levothyroxine Sodium 50 mcg PO 87.5 mcg DAILY@0700 [facility] Administration Losartan Potassium 25 mg 11/18/19 10:00 11/18/19 09:32 Cozaar - PO 25 mg DAILY KARINA Administration Metoprolol Tartrate 100 mg 11/18/19 22:00 Lopressor - PO BID [facility] Home Medications Medication Instructions Recorded Apixaban [Eliquis] 5 mg PO BID 30 Days #60 tablet 01/28/18 Aspirin [ASA -] 81 mg PO DAILY 01/28/18 Levothyroxine Sodium [Synthroid] 75 mcg PO DAILY 01/28/18 Omeprazole 20 mg PO BID 01/28/18 Amlodipine Besylate [Norvasc -] 10 mg PO DAILY 11/16/19 Atorvastatin Ca [Lipitor] 40 mg PO HS 11/16/19 Gabapentin 400 mg PO TID 11/16/19 Insulin Lispro [Humalog Kwikpen 10 units SQ AC 11/16/19 U-200] Metoprolol Tartrate 100 mg PO BID 11/16/19 Telmisartan 40 mg PO DAILY 11/16/19 ASSESSMENT AND PLAN: 74 year old female with history of HTN, DM 2, Hypothyroidism, HLD, CKD 3, Atrial Fibrillation (on Eliquis), presented with unsteady gait, double vision, occi pital headache. 1. Acute CVA with resulting CN deficits (III) CT Head - no acute intracranial findings, some volume loss, mild periventricular chronic ischemic changes. MRI/MRA Brain - acute pontine infarct, small chronic basal ganglia infarct Carotid Duplex - mild atheroma L>R, no hemodynamically significant changes. Echo normal, bubble study not done. Neurology following Already on Eliquis - Lipitor dose increased to 80mg (repeat LFTs in 2-3 weeks), Aspirin added on recommendation of Neurology. Telemonitoring shows episodes of Bigeminy - Cardiology consulted for further eval - recommend continuing Metoprolol 100mg BID. Still has double vision and unsteady gait. PT ongoing, likely needs Rehab. 2. Atrial Fibrillation - continue Metoprolol and Eliquis. 3. CKD 3 - Stable 4. DM 2 - maintain on Novolog sliding scale. 5. HTN - resumed on Lopressor, Norvasc, ARB 6. Hypothyroidism - TSH elevated. Continue Levothyroxine, dose increased to 87.5 mcg DVT Px - on Eliquis. Medically/Neurologically stable for transfer to SNF/Rehab.
--- NOTE | 2019-11-18 15:17 | PN ---
Physical Exam: SUBJECTIVE: Patient seen and examined at bedside. pt still complaining of double vision and difficulty ambulating OBJECTIVE: Vital Signs Period Temp Pulse Resp BP Sys/Page Pulse Ox Last 24 Hr 97.6 F-98.2 F 54-80 14-17 112-156/43-68 94-100 GENERAL: The patient is awake, alert, and fully oriented, in no acute distress. HEAD: Normal with no signs of trauma. NECK: Trachea midline, full range of motion, supple. LUNGS: Breath sounds equal, clear to auscultation bilaterally, no accessory muscle use. HEART: Regular rate and rhythm, S1, S2 without murmur ABDOMEN: Soft, nontender, nondistended, normoactive bowel sounds, no guarding EXTREMITIES: 2+ pulses, warm, well-perfused, no edema. NEUROLOGICAL: Cranial nerves II through XII grossly intact SKIN: Warm, dry, normal turgor, no rashes or lesions noted Laboratory Results - last 24 hr 11/17/19 11/18/19 11/18/19 21:10 05:40 05:40 WBC 6.3 RBC 4.74 Hgb 13.6 Hct 40.6 MCV 85.6 MCH 28.6 MCHC 33.4 RDW 13.8 Plt Count 173 MPV 9.9 Absolute Neuts (auto) 3.8 Neutrophils % 60.8 Lymphocytes % 28.1 Monocytes % 9.1 Eosinophils % 1.4 Basophils % 0.6 Nucleated RBC % 0 Sodium 139 Potassium 4.2 Chloride 106 Carbon Dioxide 26 Anion Gap 7 L BUN 25.6 H Creatinine 1.3 Est GFR (CKD-EPI)AfAm 46.47 Est GFR (CKD-EPI)NonAf 40.10 POC Glucometer 168 Random Glucose 120 H Calcium 8.4 L Phosphorus 3.7 Magnesium 1.9 Total Bilirubin 0.4 AST 20 ALT 26 Alkaline Phosphatase 97 Total Protein 6.4 Albumin 3.1 L Active Medications Generic Name Dose Route Start Last Admin Trade Name Freq PRN Reason Stop Dose Admin Amlodipine Besylate 10 mg 11/17/19 10:00 11/18/19 09:32 Norvasc - PO 10 mg DAILY KARINA Administration Apixaban 5 mg 11/16/19 10:00 11/18/19 09:32 Eliquis - PO 5 mg BID KARINA Administration Aspirin 81 mg 11/16/19 10:00 11/18/19 09:32 Asa - PO 81 mg DAILY KAIRNA Administration Atorvastatin Calcium 80 mg 11/16/19 22:00 11/17/19 21:18 Lipitor - PO 80 mg HS KARINA Administration Insulin Aspart 1 vial 11/16/19 07:00 11/18/19 11:53 Novolog Vial Sliding Scale - SQ 4 units ACHS KARINA Administration Protocol Levothyroxine Sodium 37.5 mcg/ 87.5 mcg 11/17/19 07:00 11/18/19 06:27 Levothyroxine Sodium 50 mcg PO 87.5 mcg DAILY@0700 KARINA Administration Losartan Potassium 25 mg 11/18/19 10:00 11/18/19 09:32 Cozaar - PO 25 mg DAILY KARINA Administration Metoprolol Tartrate 100 mg 11/18/19 22:00 Lopressor - PO BID KARINA ASSESSMENT/PLAN: 74yo F PMH HTN, DM 2, Hypothyroidism, HLD, CKD 3, Atrial Fibrillation (on Eliquis), presented with unsteady gait, double vision, occipital headache. Acute CVA with resulting CN deficits/ dyscordinate gaze -CT Head - no acute intracranial findings, some volume loss, mild periventricular chronic ischemic changes.; MRI/MRA Brain - acute pontine infarct, small chronic basal ganglia infarct; Carotid Duplex - mild atheroma L>R, no hemodynamically significant changes. -Echo nml 55-65%, bubble study not done. -Neurology recs appreciated. cardio recs appreciated -Already on Eliquis - Lipitor dose increased to 80mg (repeat LFTs in 2-3 weeks), Aspirin added on recommendation of Neurology. -Telemonitoring shows episodes of Bigeminy. cont tele -Cardiology consulted for further eval - recommend continuing Metoprolol 100mg BID. -PT Atrial Fibrillation -continue Metoprolol and Eliquis. DM - ISS, BGM HTN -increased lopressor to 100 bid -resumed on Norvasc, cozaar Hypothyroidism -TSH elevated. Continue Levothyroxine, dose increased to 87.5 mcg - rpt thyroid in 3-4 w DVT Px - on Eliquis. Medically/Neurologically stable for transfer to SNF/Rehab. ATTENDING PHYSICIAN STATEMENT I saw and evaluated the patient. I reviewed the resident's note and discussed the case with the resident. I agree with the resident's findings and plan as documented. SUBJECTIVE: OBJECTIVE: ASSESSMENT AND PLAN:
--- NOTE | 2019-11-18 15:54 | PN ---
Progress Note, Physician History of Present Illness: Pt seen and examined at bedside. She is awake and appears comfortable. - Current Medication List Current Medications: Active Medications Amlodipine Besylate (Norvasc -) 10 mg PO DAILY [facility] Last Admin: 11/18/19 09:32 Dose: 10 mg Documented by: Apixaban (Eliquis -) 5 mg PO BID [facility] Last Admin: 11/18/19 09:32 Dose: 5 mg Documented by: Aspirin (Asa -) 81 mg PO DAILY [facility] Last Admin: 11/18/19 09:32 Dose: 81 mg Documented by: Atorvastatin Calcium (Lipitor -) 80 mg PO HS [facility] Last Admin: 11/17/19 21:18 Dose: 80 mg Documented by: Insulin Aspart (Novolog Vial Sliding Scale -) 1 vial SQ [facility]; Protocol Last Admin: 11/18/19 11:53 Dose: 4 units Documented by: Levothyroxine Sodium 37.5 mcg/ (Levothyroxine Sodium 50 mcg) 87.5 mcg PO DAILY@0700 [facility] Last Admin: 11/18/19 06:27 Dose: 87.5 mcg Documented by: Losartan Potassium (Cozaar -) 25 mg PO DAILY [facility] Last Admin: 11/18/19 09:32 Dose: 25 mg Documented by: Metoprolol Tartrate (Lopressor -) 100 mg PO BID [facility] - Objective Vital Signs: Vital Signs Temperature 97.6 F 11/18/19 10:00 Pulse Rate 66 11/18/19 12:18 Respiratory Rate 16 11/18/19 12:18 Blood Pressure 125/62 11/18/19 12:18 O2 Sat by Pulse Oximetry (%) 100 11/18/19 12:18 Constitutional: Yes: Calm Eyes: Yes: Conjunctiva Clear HENT: Yes: Atraumatic Neck: Yes: Supple Cardiovascular: Yes: S1, S2 Respiratory: Yes: CTA Bilaterally Gastrointestinal: Yes: Normal Bowel Sounds, Soft Genitourinary: Yes: WNL Edema: No Neurological: Yes: Oriented Psychiatric: Yes: Oriented Labs: CBC, BMP 11/18/19 05:40 11/18/19 05:40 INR, PTT INR 1.02 (0.83-1.09) 11/16/19 08:57 Assessment/Plan Current Medications Generic Name Dose Route Start Last Admin Trade Name Freq PRN Reason Stop Dose Admin Amlodipine Besylate 10 mg 11/17/19 10:00 11/18/19 09:32 Norvasc - PO 10 mg DAILY KARINA Administration Apixaban 5 mg 11/16/19 10:00 11/18/19 09:32 Eliquis - PO 5 mg BID KARINA Administration Aspirin 81 mg 11/16/19 10:00 11/18/19 09:32 Asa - PO 81 mg DAILY KARINA Administration Atorvastatin Calcium 80 mg 11/16/19 22:00 11/17/19 21:18 Lipitor - PO 80 mg HS KARINA Administration Insulin Aspart 1 vial 11/16/19 07:00 11/18/19 11:53 Novolog Vial Sliding Scale - SQ 4 units ACHS KARINA Administration Protocol Levothyroxine Sodium 37.5 mcg/ 87.5 mcg 11/17/19 07:00 11/18/19 06:27 Levothyroxine Sodium 50 mcg PO 87.5 mcg DAILY@0700 KARINA Administration Losartan Potassium 25 mg 11/18/19 10:00 11/18/19 09:32 Cozaar - PO 25 mg DAILY KARINA Administration Metoprolol Tartrate 100 mg 11/18/19 22:00 Lopressor - PO BID KARINA Impression 1. CKD 2. a-fib 3. double vision 4. unsteady gait 5. hypothyroidism 6. hld 7. 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
[2019-11-18] MEDS: ATORVASTATIN CA 80 MG TABLET (FP) PO SCH (21:18)
[2019-11-19] MEDS ORDERED: LEVOTHYROXINE NA 75 MCG TABLET (FP) ONE (06:39)
[2019-11-19] MEDS ORDERED: LEVOTHYROXINE NA 50 MCG TABLET (FP) ONE (06:40)
[2019-11-19] MEDS: LEVOTHYROXINE PO SCH (06:42)
[2019-11-19] MEDS: INSULIN SLIDING SCALE (NOVOLOG) 1 VIAL SQ SCH ×4 (06:42→21:54)
[2019-11-19] MEDS: METOPROLOL TARTRATE 50 MG TABLET (FP) PO SCH ×2 (09:26→21:47)
[2019-11-19] MEDS: APIXABAN 5 MG TABLET PO SCH ×2 (09:27→21:47)
[2019-11-19] MEDS: amLODIPine BESYLATE 10 MG TABLET (FP) PO SCH (09:27)
[2019-11-19] MEDS: LOSARTAN POTASSIUM 25 MG TABLET PO SCH (09:27)
[2019-11-19] MEDS: ASPIRIN 81 MG CHEWABLE TABLETS PO SCH (09:27)
--- NOTE | 2019-11-19 10:14 | PN ---
Progress Note, Physician Chief Complaint: Pt A&ox3; no chest pain, palpitations, or dyspnea. Vision has improved. History of Present Illness: Ms. Hong is a 74 year old female (b. Rolan) with PM history of htn, dm, hypothyroidism, hld, paroxysmal atrial fibrillation on eliquis, TRUE-I cough. She came with with double vision and unsteady gait starting Wednesday afternoon. Patient denies any weakness, numbness, loc or seizure like activity, chest pain, palpitations, true syncope, orthopnea, PND or LE edema. Last office visit 08/29/2019 - Current Medication List Current Medications: Active Medications Amlodipine Besylate (Norvasc -) 10 mg PO DAILY [facility] Last Admin: 11/19/19 09:27 Dose: 10 mg Documented by: Apixaban (Eliquis -) 5 mg PO BID [facility] Last Admin: 11/19/19 09:27 Dose: 5 mg Documented by: Aspirin (Asa -) 81 mg PO DAILY [facility] Last Admin: 11/19/19 09:27 Dose: 81 mg Documented by: Atorvastatin Calcium (Lipitor -) 80 mg PO HS [facility] Last Admin: 11/18/19 21:18 Dose: 80 mg Documented by: Insulin Aspart (Novolog Vial Sliding Scale -) 1 vial SQ [facility]; Protocol Last Admin: 11/19/19 06:42 Dose: Not Given Documented by: Levothyroxine Sodium 37.5 mcg/ (Levothyroxine Sodium 50 mcg) 87.5 mcg PO DAILY@0700 [facility] Last Admin: 11/19/19 06:42 Dose: 87.5 mcg Documented by: Losartan Potassium (Cozaar -) 25 mg PO DAILY [facility] Last Admin: 11/19/19 09:27 Dose: 25 mg Documented by: Metoprolol Tartrate (Lopressor -) 100 mg PO BID [facility] Last Admin: 11/19/19 09:26 Dose: 100 mg Documented by: - Objective Vital Signs: Vital Signs Temperature 97.9 F 11/19/19 09:22 Pulse Rate 73 11/19/19 09:22 Respiratory Rate 18 11/19/19 09:22 Blood Pressure 138/65 11/19/19 09:22 O2 Sat by Pulse Oximetry (%) 96 11/19/19 09:22 Constitutional: Yes: Calm Eyes: Yes: WNL, PERRL HENT: Yes: WNL Neck: Yes: WNL Cardiovascular: Yes: Regular Rate and Rhythm, S1, S2 Respiratory: Yes: Regular Gastrointestinal: Yes: Soft ...Rectal Exam: Yes: Deferred Genitourinary: Yes: Anuria Breast(s): Yes: WNL Musculoskeletal: Yes: Muscle Weakness Extremities: Yes: Cool Edema: No Peripheral Pulses WNL: Yes Integumentary: Yes: WNL Neurological: Yes: Alert, Oriented, Weakness Psychiatric: Yes: WNL Labs: CBC, BMP 11/18/19 05:40 11/18/19 05:40 INR, PTT INR 1.02 (0.83-1.09) 11/16/19 08:57 - ....Imaging Chest X-ray: Image Reviewed EKG: Image Reviewed Assessment/Plan Assessment: 1. Unsteady gait, double vision, occipital headache referable to acute pontine stroke, h/o previous strokes 2. Paroxysmal atrial fibrillation with RVR -> NSR on Eliquis 3. CKD 3 with proteinuria likely diabetic nephropathy 4. Type 2 DM 5. HTN/HCVD 6. Hypothyroidism 7. Hyperlipidemia 8. COPD with h/o exacerbation 9. Diastolic dysfunction 10. Mild carotid atherosclerotic plaques w/o significant stenosis 11. Possible TRUE-I associated cough 12. diastolic CHF Plan: 1. On aspirin 81 qd; Eliquis 5 bid, Lipitor 80 qd, Norvasc 10 qd, Lopressor 100 bid. Losartan 25 mg daily started 11/18/19. 2. Previous holter monitor confirms rare paroxysmal afib recurrence, continue telemetry monitoring 3. PT and speech/swallow therapy; f/u optic w/u. 4. On Synthroid; elevated TSH, normal free T4 and T4, resin T3 uptake. 5. Keep electrolytes WNL. CC time spent: 35 minutes.
--- NOTE | 2019-11-19 11:25 | PN ---
Progress Note (short form) - Note Progress Note: SUBJECTIVE: Reports some improvement in her double vision, gait still unsteady. No facial/limb numbness or weakness. OBJECTIVE: Afebrile, Hemodynamically Stable. Last Vital Signs Temp Pulse Resp BP Pulse Ox 97.9 F 73 18 138/65 96 11/19/19 09:22 11/19/19 09:22 11/19/19 09:22 11/19/19 09:22 11/19/19 09:22 Heart - S1, S2, SR Lungs - clear to auscultation Abdomen - Soft, non-tender. Bowel sounds normal. Extremities - no edema, no calf tenderness. Neuro - AAO x 3. MIL. Strabismus R eye improved, defective rightward gaze left eye (limitation of abduction) also improving. Tone/Power normal all extremities. Laboratory Results - last 24 hr 11/18/19 11/18/19 11/18/19 11:52 17:09 21:28 POC Glucometer 218 116 187 11/19/19 06:38 POC Glucometer 126 Current Medications Generic Name Dose Route Start Last Admin Trade Name Krys PRN Reason Stop Dose Admin Amlodipine Besylate 10 mg 11/17/19 10:00 11/19/19 09:27 Norvasc - PO 10 mg DAILY KARINA Administration Apixaban 5 mg 11/16/19 10:00 11/19/19 09:27 Eliquis - PO 5 mg BID KARINA Administration Aspirin 81 mg 11/16/19 10:00 11/19/19 09:27 Asa - PO 81 mg DAILY KARINA Administration Atorvastatin Calcium 80 mg 11/16/19 22:00 11/18/19 21:18 Lipitor - PO 80 mg HS KARINA Administration Insulin Aspart 1 vial 11/16/19 07:00 11/19/19 06:42 Novolog Vial Sliding Scale - SQ Not Given ACHS KARINA Protocol Levothyroxine Sodium 37.5 mcg/ 87.5 mcg 11/17/19 07:00 11/19/19 06:42 Levothyroxine Sodium 50 mcg PO 87.5 mcg DAILY@0700 KARINA Administration Losartan Potassium 25 mg 11/18/19 10:00 11/19/19 09:27 Cozaar - PO 25 mg DAILY [facility]INA Administration Metoprolol Tartrate 100 mg 11/18/19 22:00 11/19/19 09:26 Lopressor - PO 100 mg BID KARINA Administration Home Medications Medication Instructions Recorded Apixaban [Eliquis] 5 mg PO BID 30 Days #60 tablet 01/28/18 Aspirin [ASA -] 81 mg PO DAILY 01/28/18 Omeprazole 20 mg PO BID 01/28/18 Amlodipine Besylate [Norvasc -] 10 mg PO DAILY 11/16/19 Gabapentin 400 mg PO TID 11/16/19 Insulin Lispro [Humalog Kwikpen 10 units SQ AC 11/16/19 U-200] Metoprolol Tartrate 100 mg PO BID 11/16/19 Telmisartan 40 mg PO DAILY 11/16/19 Atorvastatin Ca [Lipitor] 80 mg PO HS #30 tablet 11/18/19 Levothyroxine [Synthroid -] 87.5 mcg PO DAILY@0700 #45 tablet 11/18/19 ASSESSMENT AND PLAN: 74 year old female with history of HTN, DM 2, Hypothyroidism, HLD, CKD 3, Atrial Fibrillation (on Eliquis), presented with unsteady gait, double vision, occipital headache. 1. Acute CVA with improving CN deficits (III) CT Head - no acute intracranial findings, some volume loss, mild periventricular chronic ischemic changes. MRI/MRA Brain - acute pontine infarct, small chronic basal ganglia infarct Carotid Duplex - mild atheroma L>R, no hemodynamically significant changes. Echo normal, bubble study not done. Neurology following Already on Eliquis - Lipitor dose increased to 80mg (repeat LFTs in 2-3 weeks), Aspirin added to Eliquis on recommendation of Neurology. Telemonitoring shows episodes of Bigeminy - Cardiology consulted for further eval - recommend continuing Metoprolol 100mg BID. Still has double vision and unsteady gait, although slowly improving, neurologically stable. PT ongoing, likely needs Rehab, awaiting bed/authorization. 2. Atrial Fibrillation - continue Metoprolol and Eliquis. 3. CKD 3 - Stable 4. DM 2 - maintain on Novolog sliding scale. 5. HTN - resumed on Lopressor, Norvasc, ARB 6. Hypothyroidism - TSH elevated. Continue Levothyroxine, dose increased to 87.5 mcg DVT Px - on Eliquis. Medically/Neurologically stable for transfer to SNF/Rehab. Visit type - Emergency Visit Emergency Visit: Yes ED Registration Date: 11/16/19 Care time: The patient presented to the Emergency Department on the above date and was hospitalized for further evaluation of their emergent condition. - New Patient This patient is new to me today: No - Critical Care Critical Care patient: No - Discharge Referral Referred to [facility] No - Medication Review Med list reviewed for High Risk Meds patients 65 and older: Yes
--- NOTE | 2019-11-19 14:47 | PN ---
Progress Note, Physician History of Present Illness: Pt seen and examined at bedside. She is awake and appears comfortable. - Current Medication List Current Medications: Active Medications Amlodipine Besylate (Norvasc -) 10 mg PO DAILY [facility] Last Admin: 11/19/19 09:27 Dose: 10 mg Documented by: Apixaban (Eliquis -) 5 mg PO BID [facility] Last Admin: 11/19/19 09:27 Dose: 5 mg Documented by: Aspirin (Asa -) 81 mg PO DAILY [facility] Last Admin: 11/19/19 09:27 Dose: 81 mg Documented by: Atorvastatin Calcium (Lipitor -) 80 mg PO HS [facility] Last Admin: 11/18/19 21:18 Dose: 80 mg Documented by: Insulin Aspart (Novolog Vial Sliding Scale -) 1 vial SQ [facility]; Protocol Last Admin: 11/19/19 11:52 Dose: 4 units Documented by: Levothyroxine Sodium 37.5 mcg/ (Levothyroxine Sodium 50 mcg) 87.5 mcg PO DAILY@0700 [facility] Last Admin: 11/19/19 06:42 Dose: 87.5 mcg Documented by: Losartan Potassium (Cozaar -) 25 mg PO DAILY [facility] Last Admin: 11/19/19 09:27 Dose: 25 mg Documented by: Metoprolol Tartrate (Lopressor -) 100 mg PO BID [facility] Last Admin: 11/19/19 09:26 Dose: 100 mg Documented by: - Objective Vital Signs: Vital Signs Temperature 98.1 F 11/19/19 13:00 Pulse Rate 61 11/19/19 13:00 Respiratory Rate 18 11/19/19 13:00 Blood Pressure 114/64 11/19/19 13:00 O2 Sat by Pulse Oximetry (%) 97 11/19/19 13:00 Constitutional: Yes: Calm Eyes: Yes: Conjunctiva Clear Cardiovascular: Yes: S1, S2 Respiratory: Yes: CTA Bilaterally Gastrointestinal: Yes: Soft Genitourinary: Yes: WNL Extremities: Yes: WNL Edema: No Integumentary: Yes: WNL Labs: CBC, BMP 11/18/19 05:40 11/18/19 05:40 INR, PTT INR 1.02 (0.83-1.09) 11/16/19 08:57 Assessment/Plan Current Medications Generic Name Dose Route Start Last Admin Trade Name Freq PRN Reason Stop Dose Admin Amlodipine Besylate 10 mg 11/17/19 10:00 11/19/19 09:27 Norvasc - PO 10 mg DAILY [facility]ARINA Administration Apixaban 5 mg 11/16/19 10:00 11/19/19 09:27 Eliquis - PO 5 mg BID [facility]INA Administration Aspirin 81 mg 11/16/19 10:00 11/19/19 09:27 Asa - PO 81 mg DAILY [facility]ARINA Administration Atorvastatin Calcium 80 mg 11/16/19 22:00 11/18/19 21:18 Lipitor - PO 80 mg HS KARINA Administration Insulin Aspart 1 vial 11/16/19 07:00 11/19/19 11:52 Novolog Vial Sliding Scale - SQ 4 units ACHS KARINA Administration Protocol Levothyroxine Sodium 37.5 mcg/ 87.5 mcg 11/17/19 07:00 11/19/19 06:42 Levothyroxine Sodium 50 mcg PO 87.5 mcg DAILY@0700 KARINA Administration Losartan Potassium 25 mg 11/18/19 10:00 11/19/19 09:27 Cozaar - PO 25 mg DAILY [facility] Administration Metoprolol Tartrate 100 mg 11/18/19 22:00 11/19/19 09:26 Lopressor - PO 100 mg BID KARINA Administration Impression 1. CKD 2. a-fib 3. double vision 4. unsteady gait 5. hypothyroidism 6. hld 7. r/o cva Plan - check labs in am - monitor bp - renal function stable - avoid nephrotoxins - avoid nsaids Dr Wahl
[2019-11-19] MEDS: ATORVASTATIN CA 80 MG TABLET (FP) PO SCH (21:47)
[2019-11-20] MEDS ORDERED: LEVOTHYROXINE NA 75 MCG TABLET (FP) ONE (06:01)
[2019-11-20] MEDS ORDERED: LEVOTHYROXINE NA 50 MCG TABLET (FP) ONE (06:01)
[2019-11-20] MEDS: INSULIN SLIDING SCALE (NOVOLOG) 1 VIAL SQ SCH ×4 (06:09→22:29)
[2019-11-20] MEDS: LEVOTHYROXINE PO SCH (06:09)
[2019-11-20 06:52] LABS: BLOOD UREA NITROGEN 33.3 mg/dL (7-18); CALCIUM 8.4 mg/dL (8.5-10.1); CREATININE 1.5 mg/dL (0.55-1.3); POTASSIUM 4.3 mmol/L (3.5-5.1)
--- NOTE | 2019-11-20 07:08 | ECHO ---
Name: MARY BETH KING Exam:Adult Echocardiogram Study Date: 11/16/2019 02:05 PM Age: 74 yrs Reason For Study: TIA/Rule out CVA Height: 61 in Weight: 154 lb BSA: 1.7 m2 BP: 135/118 mmHg MMode/2D Measurements & Calculations RVDd: 3.0 cm Ao root diam: 3.2 cm IVSd: 1.1 cm LA dimension: 2.8 cm LVIDd: 4.0 cm ACS: 1.3 cm LVIDs: 2.6 cm LVPWd: 1.0 cm EDV(Teich): 68.4 ml LVOT diam: 2.0 cm ESV(Teich): 25.1 ml LAV (MOD-bp): 73.0 ml TAPSE: 2.0 cm RV S Cl: 10.5 cm/sec Doppler Measurements & Calculations MV E max cl: 71.1 cm/sec Ao V2 max: 109.9 cm/sec MV A max cl: 92.8 cm/sec Ao max P.8 mmHg MV E/A: 0.77 Ao V2 mean: 69.5 cm/sec MV dec time: 0.28 sec Ao mean P.3 mmHg Ao V2 VTI: 25.2 cm CATALINA(I,D): 2.8 cm2 CATALINA(V,D): 2.7 cm2 LV V1 max P.1 mmHg SV(LVOT): 70.6 ml LV V1 mean P.0 mmHg LV V1 max: 100.7 cm/sec LV V1 mean: 64.5 cm/sec LV V1 VTI: 23.6 cm TR max cl: 214.9 cm/sec PA V2 max: 73.3 cm/sec TR max P.6 mmHg PA max P.1 mmHg PA acc slope: 393.8 cm/sec2 PA acc time: 0.15 sec Med Peak E' Cl: 5.0 cm/sec PA pr(Accel): 12.5 mmHg Med E/e': 14.3 Lat Peak E' Cl: 4.1 cm/sec Lat E/e': 17.4 Tech Comments TDS. Patient unable to follow breathing instructions. Scanned supine. Procedure A complete two-dimensional transthoracic echocardiogram was performed (2D, M-mode, Doppler and color flow Doppler). The study was technically difficult with many images being suboptimal in quality. Left Ventricle The left ventricular size, thickness and function are normal. Ejection Fraction = 55-60%. No regional wall motion abnormalities noted. Right Ventricle The right ventricle is normal in size and function. Atria Normal left and right atrial size and function. Mitral Valve There is no mitral regurgitation noted. Tricuspid Valve There is trace tricuspid regurgitation. Right ventricular systolic pressure is normal. Aortic Valve No hemodynamically significant valvular aortic stenosis. No aortic regurgitation is present. Pulmonic Valve There is no pulmonic valvular regurgitation. Great Vessels The aortic root is normal size. Pericardium/Pleura There is no pericardial effusion. Interpretation Summary The study was technically difficult with many images being suboptimal in quality. The left ventricular size, thickness and function are normal The right ventricle is normal in size and function. There is trace tricuspid regurgitation. MD Rodriguez Canseco 11/16/2019 04:04 PM
[2019-11-20] MEDS: APIXABAN 5 MG TABLET PO SCH ×2 (09:35→22:25)
[2019-11-20] MEDS: amLODIPine BESYLATE 10 MG TABLET (FP) PO SCH (09:35)
[2019-11-20] MEDS: LOSARTAN POTASSIUM 25 MG TABLET PO SCH (09:35)
[2019-11-20] MEDS: ASPIRIN 81 MG CHEWABLE TABLETS PO SCH (09:35)
[2019-11-20] MEDS: METOPROLOL TARTRATE 50 MG TABLET (FP) PO SCH ×2 (09:35→22:25)
--- NOTE | 2019-11-20 09:46 | PN ---
Progress Note, Physician History of Present Illness: HPI 74 year old female history of htn, dm, hypothyroidism, hld, paroxysmal atrial fibrillation on eliquis, TRUE-I cough. She came with with double vision since improving, albeit imbalance persists. Patient denies any weakness, numbness, loc or seizure like activity, chest pain, palpitations, true syncope, orthopnea, PND or LE edema. Last office visit 08/29/2019, OOB in chair. - Current Medication List Current Medications: Active Medications Amlodipine Besylate (Norvasc -) 10 mg PO DAILY [facility] Last Admin: 11/20/19 09:35 Dose: 10 mg Documented by: Apixaban (Eliquis -) 5 mg PO BID [facility] Last Admin: 11/20/19 09:35 Dose: 5 mg Documented by: Aspirin (Asa -) 81 mg PO DAILY [facility] Last Admin: 11/20/19 09:35 Dose: 81 mg Documented by: Atorvastatin Calcium (Lipitor -) 80 mg PO HS [facility] Last Admin: 11/19/19 21:47 Dose: 80 mg Documented by: Insulin Aspart (Novolog Vial Sliding Scale -) 1 vial SQ [facility]; Protocol Last Admin: 11/20/19 06:09 Dose: Not Given Documented by: Levothyroxine Sodium 37.5 mcg/ (Levothyroxine Sodium 50 mcg) 87.5 mcg PO DAILY@0700 [facility] Last Admin: 11/20/19 06:09 Dose: 87.5 mcg Documented by: Losartan Potassium (Cozaar -) 25 mg PO DAILY [facility] Last Admin: 11/20/19 09:35 Dose: 25 mg Documented by: Metoprolol Tartrate (Lopressor -) 100 mg PO BID [facility] Last Admin: 11/20/19 09:35 Dose: 100 mg Documented by: - Objective Vital Signs: Vital Signs Temperature 98.5 F 11/20/19 04:00 Pulse Rate 53 L 11/20/19 08:00 Respiratory Rate 12 11/20/19 08:00 Blood Pressure 117/52 L 11/20/19 08:00 O2 Sat by Pulse Oximetry (%) 98 11/20/19 08:00 Constitutional: Yes: No Distress, Calm Neck: Yes: Supple Cardiovascular: Yes: Regular Rate and Rhythm Respiratory: Yes: Regular, CTA Bilaterally Gastrointestinal: Yes: Normal Bowel Sounds, Soft Edema: No Labs: CBC, BMP 11/18/19 05:40 11/20/19 05:35 INR, PTT INR 1.02 (0.83-1.09) 11/16/19 08:57 - ....Imaging EKG: Report Reviewed (SR @ 69, PAC, PVC) Problem List - Problems (1) Type 2 diabetes mellitus Code(s): E11.9 - TYPE 2 DIABETES MELLITUS WITHOUT COMPLICATIONS Qualifiers: Diabetes mellitus mcc insulin use: with intermediate designer use Diabetes mellitus complication status: with kidney complications Diabetes mellitus complication detail: with nephropathy Qualified Code(s): 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; Z79.4 - rat 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 (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) use of insulin (2) Hyperlipidemia associated with type 2 diabetes mellitus Code(s): E11.69 - TYPE 2 DIABETES MELLITUS WITH OTHER SPECIFIED COMPLICATION; E78.5 - HYPERLIPIDEMIA, UNSPECIFIED (3) Left pontine stroke Code(s): I63.50 - CEREB INFRC DUE TO UNSP OCCLS OR STENOS OF UNSP CEREB ARTERY (4) Cerebrovascular accident (CVA) Code(s): I63.9 - CEREBRAL INFARCTION, UNSPECIFIED Qualifiers: CVA mechanism: unspecified Qualified Code(s): I63.9 - Cerebral infarction, unspecified (5) Diplopia Code(s): H53.2 - DIPLOPIA (6) Afib Code(s): I48.91 - UNSPECIFIED ATRIAL FIBRILLATION Qualifiers: Atrial fibrillation type: paroxysmal Qualified Code(s): I48.0 - Paroxysmal atrial fibrillation (7) Hypertension Code(s): I10 - ESSENTIAL (PRIMARY) HYPERTENSION Qualifiers: Hypertension type: essential hypertension Qualified Code(s): I10 - Essential (primary) hypertension (8) Hypothyroidism Code(s): E03.9 - HYPOTHYROIDISM, UNSPECIFIED Qualifiers: Hypothyroidism type: unspecified Qualified Code(s): E03.9 - Hypothyroidism, unspecified Assessment/Plan 11/16/2019 CT Head - no acute intracranial findings, some volume loss, mild periventricular chronic ischemic changes 11/16/2019 Brain MRI, MRA - Acute pontine stroke, small chronic left basal ganglia stroke, possoble small chronic right frontal cortical infarct 11/16/2019 Carotid Duplex - mild atheroma L>R, no hemodynamically significant changes. 11/16/2019 Echo: Normal biventricular size and fxn, tr TR Carotid US: 08/22/2018 Diffuse bilateral intimal thickening with calcified plaque involving distal left CCA, left carotid bulb and prox LICA. No hemodynamically significant stenosis EKG:SB@ 58PRWP c/w previous 02/21/2019, no sig change Holter Monitor: 02/16/2018 NSR 1.4% PAC, 0.4% PAF avg rate 66 bpm, range 50-137 bpm Echocardiography: 01/28/18 normal LV size and systolic function, LV diastolic dysfunction, mild TR Nuclear stress: 01/28/2018 No ischemia LVEF 69%, had episode of rapid afib up to 180 bpm with rate-related changes during exercise spontaneously converted NSR Assessment: 1. Unsteady gait, double vision, occipital headache referable to acute pontine stroke, h/o previous strokes 2. Paroxysmal atrial fibrillation with RVR -> NSR on Eliquis 3. CKD 3 with proteinuria likely diabetic nephropathy 4. Type 2 DM 5. HTN/HCVD 6. Hypothyroidism 7. Hyperlipidemia 8. COPD with h/o exacerbation 9. Diastolic dysfunction 10. Carotid atherosclerotic plaques w/o significant stenosis 11. Possible TRUE-I associated cough Plan: 1. Continue aspirin 81 qd, Eliquis 5 bid, Lipitor 80 qd, Norvasc 10 qd. Lopressor 100 bid, losartan 25 qd as hemodynamics tolerate 2. Previous holter monitor confirms rare paroxysmal afib recurrence, continue telemetry monitoring 3. PT and speech/swallow therapy
--- NOTE | 2019-11-20 11:06 | EKG ---
Test Reason : Blood Pressure : / mmHG Vent. Rate : 069 BPM Atrial Rate : 069 BPM P-R Int : 172 ms QRS Dur : 084 ms QT Int : 442 ms P-R-T Axes : 043 009 032 degrees QTc Int : 473 ms SINUS RHYTHM WITH OCCASIONAL PREMATURE VENTRICULAR COMPLEXES AND PREMATURE ATRIAL COMPLEXES ABNORMAL ECG WHEN COMPARED WITH ECG OF 16-NOV-2019 02:48, PREMATURE VENTRICULAR COMPLEXES ARE NOW PRESENT PREMATURE ATRIAL COMPLEXES ARE NOW PRESENT Confirmed by GIOVANNI HUITRON, JONAS ([id number]) on 11/20/2019 11:05:10 AM Referred By: Ajay CARRASCO Confirmed By:JONAS DAVILA MD
--- NOTE | 2019-11-20 12:16 | PN ---
Teaching Attending Note Name of Resident: [place] ATTENDING PHYSICIAN STATEMENT I saw and evaluated the patient. I reviewed the resident's note and discussed the case with the resident. I agree with the resident's findings and plan as documented. SUBJECTIVE: Reports some improvement in her double vision, gait still unsteady. No facial/limb numbness or weakness. OBJECTIVE: Afebrile, Hemodynamically Stable. Last Vital Signs Temp Pulse Resp BP Pulse Ox 98.5 F 53 L 12 117/52 L 98 11/20/19 04:00 11/20/19 08:00 11/20/19 08:00 11/20/19 08:00 11/20/19 09:00 Heart - S1, S2, SR Lungs - clear to auscultation Abdomen - Soft, non-tender. Bowel sounds normal. Extremities - no edema, no calf tenderness. Neuro - AAO x 3. MIL. Strabismus R eye resolved, defective rightward gaze left eye (limitation of abduction) also appears to have resolved. Tone/Power normal all extremities. Laboratory Results - last 24 hr 11/19/19 11/19/19 11/20/19 16:52 21:51 05:35 Sodium 136 Potassium 4.3 Chloride 106 Carbon Dioxide 26 Anion Gap 5 L BUN 33.3 H Creatinine 1.5 H Est GFR (CKD-EPI)AfAm 39.09 Est GFR (CKD-EPI)NonAf 33.73 POC Glucometer 149 168 Random Glucose 139 H Calcium 8.4 L 11/20/19 11/20/19 06:08 11:38 Sodium Potassium Chloride Carbon Dioxide Anion Gap BUN Creatinine Est GFR (CKD-EPI)AfAm Est GFR (CKD-EPI)NonAf POC Glucometer 130 208 Random Glucose Calcium Current Medications Generic Name Dose Route Start Last Admin Trade Name Freq PRN Reason Stop Dose Admin Amlodipine Besylate 10 mg 11/17/19 10:00 11/20/19 09:35 Norvasc - PO 10 mg DAILY KARINA Administration Apixaban 5 mg 11/16/19 10:00 11/20/19 09:35 Eliquis - PO 5 mg BID KARINA Administration Aspirin 81 mg 11/16/19 10:00 11/20/19 09:35 Asa - PO 81 mg DAILY KARINA Administration Atorvastatin Calcium 80 mg 11/16/19 22:00 11/19/19 21:47 Lipitor - PO 80 mg HS KARINA Administration Insulin Aspart 1 vial 11/16/19 07:00 11/20/19 11:55 Novolog Vial Sliding Scale - SQ 4 units ACHS KARINA Administration Protocol Levothyroxine Sodium 37.5 mcg/ 87.5 mcg 11/17/19 07:00 11/20/19 06:09 Levothyroxine Sodium 50 mcg PO 87.5 mcg DAILY@0700 KARINA Administration Losartan Potassium 25 mg 11/18/19 10:00 11/20/19 09:35 Cozaar - PO 25 mg DAILY KARINA Administration Metoprolol Tartrate 100 mg 11/18/19 22:00 11/20/19 09:35 Lopressor - PO 100 mg BID KARINA Administration Home Medications Medication Instructions Recorded Apixaban [Eliquis] 5 mg PO BID 30 Days #60 tablet 01/28/18 Aspirin [ASA -] 81 mg PO DAILY 01/28/18 Omeprazole 20 mg PO BID 01/28/18 Amlodipine Besylate [Norvasc -] 10 mg PO DAILY 11/16/19 Gabapentin 400 mg PO TID 11/16/19 Insulin Lispro [Humalog Kwikpen 10 units SQ AC 11/16/19 U-200] Metoprolol Tartrate 100 mg PO BID 11/16/19 Telmisartan 40 mg PO DAILY 11/16/19 Atorvastatin Ca [Lipitor] 80 mg PO HS #30 tablet 11/18/19 Levothyroxine [Synthroid -] 87.5 mcg PO DAILY@0700 #45 tablet 11/18/19 ASSESSMENT AND PLAN: 74 year old female with history of HTN, DM 2, Hypothyroidism, HLD, CKD 3, Atrial Fibrillation (on Eliquis), presented with unsteady gait, double vision, occipital headache. 1. Acute CVA with improving CN deficits (III) CT Head - no acute intracranial findings, some volume loss, mild periventricular chronic ischemic changes. MRI/MRA Brain - acute pontine infarct, small chronic basal ganglia infarct Carotid Duplex - mild atheroma L>R, no hemodynamically significant changes. Echo normal, bubble study not done. Neurology following Already on Eliquis - Lipitor dose increased to 80mg (repeat LFTs in 2-3 weeks), Aspirin added to Eliquis on recommendation of Neurology. Telemonitoring shows episodes of Bigeminy - Cardiology consulted for further eval - recommend continuing Metoprolol 100mg BID. Still has double vision and unsteady gait, although slowly improving, neurologically stable. PT ongoing, likely needs Rehab, awaiting bed/authorization. Neurology to follow up as out-patient. 2. Atrial Fibrillation - continue Metoprolol and Eliquis. 3. CKD 3 - Stable 4. DM 2 - resume home regimen 5. HTN - resumed on Lopressor, Norvasc, ARB 6. Hypothyroidism - TSH elevated. Continue Levothyroxine, dose increased to 87.5 mcg. Repeat TSH in 3-4 weeks. DVT Px - on Eliquis. Medically/Neurologically stable for transfer to SNF/Rehab.
--- NOTE | 2019-11-20 16:14 | PN ---
Progress Note, Physician History of Present Illness: Pt seen and examined at bedside. She is awake and appears comfortable. - Current Medication List Current Medications: Active Medications Amlodipine Besylate (Norvasc -) 10 mg PO DAILY [facility] Last Admin: 11/20/19 09:35 Dose: 10 mg Documented by: Apixaban (Eliquis -) 5 mg PO BID [facility] Last Admin: 11/20/19 09:35 Dose: 5 mg Documented by: Aspirin (Asa -) 81 mg PO DAILY [facility] Last Admin: 11/20/19 09:35 Dose: 81 mg Documented by: Atorvastatin Calcium (Lipitor -) 80 mg PO HS [facility] Last Admin: 11/19/19 21:47 Dose: 80 mg Documented by: Insulin Aspart (Novolog Vial Sliding Scale -) 1 vial SQ [facility]; Protocol Last Admin: 11/20/19 11:55 Dose: 4 units Documented by: Levothyroxine Sodium 37.5 mcg/ (Levothyroxine Sodium 50 mcg) 87.5 mcg PO DAILY@0700 [facility] Last Admin: 11/20/19 06:09 Dose: 87.5 mcg Documented by: Losartan Potassium (Cozaar -) 25 mg PO DAILY [facility] Last Admin: 11/20/19 09:35 Dose: 25 mg Documented by: Metoprolol Tartrate (Lopressor -) 100 mg PO BID [facility] Last Admin: 11/20/19 09:35 Dose: 100 mg Documented by: - Objective Vital Signs: Vital Signs Temperature 98.8 F 11/20/19 12:00 Pulse Rate 54 L 11/20/19 12:00 Respiratory Rate 12 11/20/19 08:00 Blood Pressure 134/60 11/20/19 12:00 O2 Sat by Pulse Oximetry (%) 99 11/20/19 12:00 Constitutional: Yes: Calm Eyes: Yes: Conjunctiva Clear HENT: Yes: Atraumatic Neck: Yes: Supple Cardiovascular: Yes: S1, S2 Respiratory: Yes: CTA Bilaterally Gastrointestinal: Yes: Soft Genitourinary: Yes: WNL Musculoskeletal: Yes: WNL Edema: No Neurological: Yes: Oriented Psychiatric: Yes: Oriented Labs: CBC, BMP 11/18/19 05:40 11/20/19 05:35 INR, PTT INR 1.02 (0.83-1.09) 11/16/19 08:57 Assessment/Plan Current Medications Generic Name Dose Route Start Last Admin Trade Name Freq PRN Reason Stop Dose Admin Amlodipine Besylate 10 mg 11/17/19 10:00 11/20/19 09:35 Norvasc - PO 10 mg DAILY KARINA Administration Apixaban 5 mg 11/16/19 10:00 11/20/19 09:35 Eliquis - PO 5 mg BID KARINA Administration Aspirin 81 mg 11/16/19 10:00 11/20/19 09:35 Asa - PO 81 mg DAILY KARINA Administration Atorvastatin Calcium 80 mg 11/16/19 22:00 11/19/19 21:47 Lipitor - PO 80 mg HS KARINA Administration Insulin Aspart 1 vial 11/16/19 07:00 11/20/19 11:55 Novolog Vial Sliding Scale - SQ 4 units ACHS KARINA Administration Protocol Levothyroxine Sodium 37.5 mcg/ 87.5 mcg 11/17/19 07:00 11/20/19 06:09 Levothyroxine Sodium 50 mcg PO 87.5 mcg DAILY@0700 KARINA Administration Losartan Potassium 25 mg 11/18/19 10:00 11/20/19 09:35 Cozaar - PO 25 mg DAILY [facility] Administration Metoprolol Tartrate 100 mg 11/18/19 22:00 11/20/19 09:35 Lopressor - PO 100 mg BID [facility] Administration Impression 1. CKD 2. a-fib 3. double vision 4. unsteady gait 5. hypothyroidism 6. hld 7. 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
--- NOTE | 2019-11-20 17:38 | DS ---
Physical Exam: SUBJECTIVE: Patient seen and examined at bedside, no new complaints. reports some improvement of her double vision, but still have unsteady gait OBJECTIVE: Vital Signs Period Temp Pulse Resp BP Sys/Page Pulse Ox Last 24 Hr 98.2 F-98.8 F 53-65 12-18 117-134/52-66 58-99 PHYSICAL EXAM GENERAL: AAOx3, in no acute distress HEENT: NCAT, PERRLA, EOMI, sclera anicteric, conjunctiva clear, oropharynx clear w/o exudates. MMM. NECK: Normal ROM, supple, no lymphadenopathy, JVD, or masses LUNGS: CTABL no wheezes/ rhonchi/ rales. No distress, speaks in full sentences. No increased work of breathing. HEART: RRR, normal S1 S2, no M/R/G, peripheral pulses 2+ and equal b/l ABDOMEN: Soft, non-tender, + BS. No guarding or rebound. No hepatomegaly or splenomegaly. MSK: ROM WNL, NO CVA tenderness EXTREMITIES: Normal inspection. No peripheral edema. No clubbing or cyanosis. NEUROLOGICAL: CN II-XII intact. Normal speech, gait not observed, no focal sensorimotor deficits. b/l Nystagmus on horizontal gaze, limited adduction of the left eye on right gaze is improving. PSYCH: Normal mood, normal affect. SKIN: Warm, Dry, normal turgor, no rashes or lesions noted LABS Laboratory Results - last 24 hr 11/19/19 11/20/19 11/20/19 21:51 05:35 06:08 Sodium 136 Potassium 4.3 Chloride 106 Carbon Dioxide 26 Anion Gap 5 L BUN 33.3 H Creatinine 1.5 H Est GFR (CKD-EPI)AfAm 39.09 Est GFR (CKD-EPI)NonAf 33.73 POC Glucometer 168 130 Random Glucose 139 H Calcium 8.4 L 11/20/19 11/20/19 11:38 16:32 Sodium Potassium Chloride Carbon Dioxide Anion Gap BUN Creatinine Est GFR (CKD-EPI)AfAm Est GFR (CKD-EPI)NonAf POC Glucometer 208 204 Random Glucose Calcium HOSPITAL COURSE: Date of Admission:11/16/19 74 year old female with history of HTN, DM 2, Hypothyroidism, HLD, CKD 3, Atrial Fibrillation (on Eliquis), presented with unsteady gait, double vision, and occipital headache, admitted for Acute CVA with partial CN deficits (III). CT Head revealed no acute intracranial findings, but shoed some volume loss, mild periventricular chronic ischemic changes. MRI/MRA Brain revealed acute pontine infarct, small chronic basal ganglia infarct. Carotid Duplex study revealed mild atheroma L>R, no hemodynamically significant changes. Echo was done to evaluate for cryptogenic emboli, which revealed normal, bubble study not done. Ivelisse was already on Eliquis. Lipitor dose increased to 80mg during the hospital course and advised her to repeat LFTs in 2-3 weeks in outpt PCP clinic. Aspirin was also added to Eliquis on recommendation of Neurology. Neurology to follow up as out-patient. During the stay, Telemonitoring showed episodes of Bigeminy. Cardiology was consulted for further evaluationa and recommend continuing Metoprolol 100mg BID. patient recieved daily evaluation with PT. Labs showed, TSH elevated.Levothyroxine, dose increased to 87.5 mcg. Advised her to Repeat TSH in 3-4 weeks at her PCP clinic. At this time she is medically/Neurologically stable for transfer to SNF/Rehab, awaiting bed/authorization. Will continue to monitor. Date of Discharge: 11/20/19 Minutes to complete discharge: 36 Discharge Summary Problems reviewed: Yes Reason For Visit: DIPLOPIA, TRANSIENT ISCHEMIC ATTACK Current Active Problems Cerebrovascular accident (CVA) (Acute) Diplopia (Acute) Dizziness (Acute) Dysconjugate gaze (Acute) Left pontine stroke (Acute) Transient ischemic attack (Acute) Unsteady gait (Acute) Hypothyroidism (Chronic) Type 2 diabetes mellitus (Chronic) Condition: Guarded - Instructions Diet, Activity, Other Instructions: You came into the hospital for dizziness and a change in your vision. You had imaging of your head showing that you had a stroke. your heart was monitored, and you were started on medications to help prevent future strokes. Your blood work shows that your thyroid level. Your thyroxine dose was increased to 87.5mcg. You will need to repeat thyroid function in 3-4 weeks You are started on Atorvastatin 80 mg. please continue this every night. You will need to repeat your liver levels in 3-4 weeks You are started on baby aspirin, 81 mg Your dose of synthroid is increased to 87.5 mcg Please continue your additional medications as prescribed Please follow up with your primary care physician in 1 week to monitor your improvement Please follow up with your neurologist, Dr. Mcdonough regarding your acute stroke. Please follow up with your lace pinner Dr. Espana to continue to monitor your [facility], [facility] Please follow up with your opthomologist, Dr. Navarro regarding your vision, prism exercises If you have new, worsening, or concerning symptoms please return to the ED or call [phone] Referrals: Karthikeyan Mcdonough MD [Staff Physician] - Luis Angel Villeda MD [Primary Care Provider] - Jalen Navarro MD [Staff Physician] - Reginaldo Espana MD [Staff Physician] - Disposition: ALF FACILITY - Home Medications Comprehensive Discharge Medication List: Ambulatory Orders Apixaban [Eliquis] 5 mg PO BID 30 Days #60 tablet 01/28/18 Aspirin [ASA -] 81 mg PO DAILY 01/28/18 Omeprazole 20 mg PO BID 01/28/18 Amlodipine Besylate [Norvasc -] 10 mg PO DAILY 11/16/19 Gabapentin 400 mg PO TID 11/16/19 Insulin Lispro [Humalog Kwikpen U-200] 10 units SQ AC 11/16/19 Metoprolol Tartrate 100 mg PO BID 11/16/19 Telmisartan 40 mg PO DAILY 11/16/19 Atorvastatin Ca [Lipitor] 80 mg PO HS #30 tablet 11/18/19 Levothyroxine [Synthroid -] 87.5 mcg PO DAILY@0700 #45 tablet 11/18/19 This patient is new to me today: No Emergency Visit: Yes ED Registration Date: 11/16/19 Care time: The patient presented to the Emergency Department on the above date and was hospitalized for further evaluation of their emergent condition. Critical Care patient: No - Discharge Referral Referred to [facility] Med P.C.: No ATTENDING PHYSICIAN STATEMENT I saw and evaluated the patient. I reviewed the resident's note and discussed the case with the resident. I agree with the resident's findings and plan as documented. SUBJECTIVE: OBJECTIVE: ASSESSMENT AND PLAN:
[2019-11-20] MEDS: ATORVASTATIN CA 80 MG TABLET (FP) PO SCH (22:25)
[2019-11-21] MEDS ORDERED: LEVOTHYROXINE NA 75 MCG TABLET (FP) ONE (06:12)
[2019-11-21] MEDS ORDERED: LEVOTHYROXINE NA 50 MCG TABLET (FP) ONE (06:12)
[2019-11-21] MEDS: LEVOTHYROXINE PO SCH (06:20)
[2019-11-21] MEDS: INSULIN SLIDING SCALE (NOVOLOG) 1 VIAL SQ SCH ×4 (06:20→23:07)
--- NOTE | 2019-11-21 06:53 | PN ---
Progress Note (short form) - Note Progress Note: 74 year old female history of htn, dm, hypothyroidism, hld, atrial fibrillation on eliquis. She came with with double vision and unsteady gait. It started wednesday afternoon. Patient denies any weakness , numbness, loc or seizure like activity. Patient has normal ct head. -- No symptoms and improving over the weekend, double vision is mostly on left gaze NEUROLOGICAL EXAMINATION Alert and follow command, neck is supple vss there is minimal nystagmus on right lateral gaze on right eye and there is limitation of abduction on left eye on right gaze( improved since admission) there is is no limitation on left lateral gaze pupil is reactive ext is normal in strength ct head unremarkable mri of brain showed pontine stroke and carotid ultrasound unremarkable Assessment/Plan brain stem stroke, clinicaly improving Plan-- continue aspirin and statin and eliquis - pateint can be discharged and follow up outpatient - follow up optho for prism exercises Thanking you so much Reynold Mcdonough MD
[2019-11-21] MEDS: APIXABAN 5 MG TABLET PO SCH ×2 (09:39→23:04)
[2019-11-21] MEDS: ASPIRIN 81 MG CHEWABLE TABLETS PO SCH (09:39)
[2019-11-21] MEDS: METOPROLOL TARTRATE 50 MG TABLET (FP) PO SCH ×2 (09:39→23:02)
[2019-11-21] MEDS: LOSARTAN POTASSIUM 25 MG TABLET PO SCH (09:39)
[2019-11-21] MEDS: amLODIPine BESYLATE 10 MG TABLET (FP) PO SCH (09:39)
--- NOTE | 2019-11-21 09:53 | PN ---
Progress Note, Physician Chief Complaint: Events noted Not in distress History of Present Illness: Patient was seen and examined. Awake and alert. Chart was reviewed Denies chest pain, SOB or palpitations - Current Medication List Current Medications: Active Medications Amlodipine Besylate (Norvasc -) 10 mg PO DAILY [facility] Last Admin: 11/21/19 09:39 Dose: 10 mg Documented by: Apixaban (Eliquis -) 5 mg PO BID [facility] Last Admin: 11/21/19 09:39 Dose: 5 mg Documented by: Aspirin (Asa -) 81 mg PO DAILY [facility] Last Admin: 11/21/19 09:39 Dose: 81 mg Documented by: Atorvastatin Calcium (Lipitor -) 80 mg PO HS [facility] Last Admin: 11/20/19 22:25 Dose: 80 mg Documented by: Insulin Aspart (Novolog Vial Sliding Scale -) 1 vial SQ [facility]; Protocol Last Admin: 11/21/19 06:20 Dose: Not Given Documented by: Levothyroxine Sodium 37.5 mcg/ (Levothyroxine Sodium 50 mcg) 87.5 mcg PO DAILY@0700 [facility] Last Admin: 11/21/19 06:20 Dose: 87.5 mcg Documented by: Losartan Potassium (Cozaar -) 25 mg PO DAILY [facility] Last Admin: 11/21/19 09:39 Dose: 25 mg Documented by: Metoprolol Tartrate (Lopressor -) 100 mg PO BID [facility] Last Admin: 11/21/19 09:39 Dose: 100 mg Documented by: - Objective Vital Signs: Vital Signs Temperature 97.9 F 11/21/19 06:00 Pulse Rate 62 11/21/19 08:00 Respiratory Rate 15 11/21/19 08:00 Blood Pressure 135/102 H 11/21/19 08:00 O2 Sat by Pulse Oximetry (%) 95 11/21/19 02:00 Neck: Yes: Supple Cardiovascular: Yes: Regular Rate and Rhythm, S1, S2 Respiratory: Yes: CTA Bilaterally Gastrointestinal: Yes: Normal Bowel Sounds, Soft. No: Tenderness Edema: No Additional Findings/Remarks: - Review of Systems Constitutional: denies: Chills, Fever Cardiovascular: denies: Shortness of Breath. denies: Chest Pain, Palpitations Respiratory: denies: SOB. denies: Cough, Hemoptysis, Orthopnea, PND Gastrointestinal: denies: Abdominal Pain, Constipation, Diarrhea, Melena, Nausea, Rectal Bleeding, Vomiting Musculoskeletal: denies: Joint Pain. denies: Back Pain Neurological: denies: Dizziness, Headache. denies: Change in Speech, Confusion, Seizure, Syncope, Unsteady Gait Labs: 11/20/19 Problem List - Problems (1) Hypercholesterolemia Code(s): E78.00 - PURE HYPERCHOLESTEROLEMIA, UNSPECIFIED (2) Cerebrovascular accident (CVA) Code(s): I63.9 - CEREBRAL INFARCTION, UNSPECIFIED Qualifiers: CVA mechanism: unspecified Qualified Code(s): I63.9 - Cerebral infarction, unspecified (3) Diplopia Code(s): H53.2 - DIPLOPIA (4) Left pontine stroke Code(s): I63.50 - CEREB INFRC DUE TO UNSP OCCLS OR STENOS OF UNSP CEREB ARTERY (5) Type 2 diabetes mellitus Code(s): E11.9 - TYPE 2 DIABETES MELLITUS WITHOUT COMPLICATIONS Qualifiers: Diabetes mellitus penitentiary insulin use: with oysterman use Diabetes mellitus complication status: with kidney complications Diabetes mellitus complication detail: with nephropathy Qualified Code(s): E11.21 - Type 2 diabetes mellitus with diabetic nephropathy; Z79.4 - long-term (current) use of insulin (6) Afib Code(s): I48.91 - UNSPECIFIED ATRIAL FIBRILLATION Qualifiers: Atrial fibrillation type: paroxysmal Qualified Code(s): I48.0 - Paroxysmal atrial fibrillation (7) Hypertension Code(s): I10 - ESSENTIAL (PRIMARY) HYPERTENSION Qualifiers: Hypertension type: essential hypertension Qualified Code(s): I10 - Essential (primary) hypertension Assessment/Plan 1. Unsteady gait, double vision, occipital headache referable to acute pontine stroke 2. Paroxysmal atrial fibrillation currently in NSR 3. CKD 3 with proteinuria likely diabetic nephropathy 4. Type 2 DM 5. HTN/HCVD 6. Hypothyroidism 7. Hyperlipidemia 8. COPD with h/o exacerbation 9. Diastolic dysfunction 10. Carotid stenosis PLAN: 1. Continue aspirin 81 mg QD, Eliquis 5 mg BID, Lipitor 80 mg QD, Norvasc 10 mg QD, Lopressor 100 mg BID and Losartan 25 mg QD as tolerated 2. PT and speech/swallow therapy Continue present therapy Follow up in office with Dr. Reginaldo Espana, [facility] Igor Crews MD
--- NOTE | 2019-11-21 14:34 | PN ---
Progress Note (short form) - Note Progress Note: Patient seen and examined at bedside, no new complaints. reports some i mprovement of her double vision, but still have unsteady gait. She is afebrile and hemodynamically stable, at this time. She was discharged on 11/20/19. GENERAL: AAOx3, in no acute distress HEENT: NCAT, PERRLA, EOMI, sclera anicteric, conjunctiva clear, oropharynx clear w/o exudates. MMM. NECK: Normal ROM, supple, no lymphadenopathy, JVD, or masses LUNGS: CTABL no wheezes/ rhonchi/ rales. No distress, speaks in full sentences. No increased work of breathing. HEART: RRR, normal S1 S2, no M/R/G, peripheral pulses 2+ and equal b/l ABDOMEN: Soft, non-tender, + BS. No guarding or rebound. No hepatomegaly or splenomegaly. MSK: ROM WNL, NO CVA tenderness EXTREMITIES: Normal inspection. No peripheral edema. No clubbing or cyanosis. NEUROLOGICAL: CN II-XII intact. Normal speech, gait not observed, no focal sensorimotor deficits. b/l Nystagmus on horizontal gaze-improved, limited adduction of the left eye on right gaze- improved. PSYCH: Normal mood, normal affect. SKIN: Warm, Dry, normal turgor, no rashes or lesions noted Dispo: pending placement for SNF/Rehab, awaiting bed/ insurance authorization, will continue to monitor during hospital stay
--- NOTE | 2019-11-21 16:42 | PN ---
Progress Note, Physician History of Present Illness: Pt seen and examined at bedside. She is awake and appears comfortable. - Current Medication List Current Medications: Active Medications Amlodipine Besylate (Norvasc -) 10 mg PO DAILY [facility] Last Admin: 11/21/19 09:39 Dose: 10 mg Documented by: Apixaban (Eliquis -) 5 mg PO BID [facility] Last Admin: 11/21/19 09:39 Dose: 5 mg Documented by: Aspirin (Asa -) 81 mg PO DAILY [facility] Last Admin: 11/21/19 09:39 Dose: 81 mg Documented by: Atorvastatin Calcium (Lipitor -) 80 mg PO HS [facility] Last Admin: 11/20/19 22:25 Dose: 80 mg Documented by: Insulin Aspart (Novolog Vial Sliding Scale -) 1 vial SQ [facility]; Protocol Last Admin: 11/21/19 11:38 Dose: 6 units Documented by: Levothyroxine Sodium 37.5 mcg/ (Levothyroxine Sodium 50 mcg) 87.5 mcg PO DAILY@0700 [facility] Last Admin: 11/21/19 06:20 Dose: 87.5 mcg Documented by: Losartan Potassium (Cozaar -) 25 mg PO DAILY [facility] Last Admin: 11/21/19 09:39 Dose: 25 mg Documented by: Metoprolol Tartrate (Lopressor -) 100 mg PO BID [facility] Last Admin: 11/21/19 09:39 Dose: 100 mg Documented by: - Objective Vital Signs: Vital Signs Temperature 98.1 F 11/21/19 14:00 Pulse Rate 52 L 11/21/19 14:00 Respiratory Rate 18 11/21/19 14:00 Blood Pressure 127/54 L 11/21/19 14:00 O2 Sat by Pulse Oximetry (%) 95 11/21/19 14:00 Constitutional: Yes: Calm Eyes: Yes: Conjunctiva Clear HENT: Yes: Atraumatic Neck: Yes: Supple Cardiovascular: Yes: S1, S2 Respiratory: Yes: CTA Bilaterally Gastrointestinal: Yes: Soft Genitourinary: Yes: WNL Musculoskeletal: Yes: WNL Edema: No Neurological: Yes: Confusion Labs: CBC, BMP 11/18/19 05:40 11/20/19 05:35 INR, PTT INR 1.02 (0.83-1.09) 11/16/19 08:57 Assessment/Plan Current Medications Generic Name Dose Route Start Last Admin Trade Name Freq PRN Reason Stop Dose Admin Amlodipine Besylate 10 mg 11/17/19 10:00 11/21/19 09:39 Norvasc - PO 10 mg DAILY [facility] Administration Apixaban 5 mg 11/16/19 10:00 11/21/19 09:39 Eliquis - PO 5 mg BID [facility] Administration Aspirin 81 mg 11/16/19 10:00 11/21/19 09:39 Asa - PO 81 mg DAILY [facility] Administration Atorvastatin Calcium 80 mg 11/16/19 22:00 11/20/19 22:25 Lipitor - PO 80 mg HS [facility] Administration Insulin Aspart 1 vial 11/16/19 07:00 11/21/19 11:38 Novolog Vial Sliding Scale - SQ 6 units ACHS [facility] Administration Protocol Levothyroxine Sodium 37.5 mcg/ 87.5 mcg 11/17/19 07:00 11/21/19 06:20 Levothyroxine Sodium 50 mcg PO 87.5 mcg DAILY@0700 [facility] Administration Losartan Potassium 25 mg 11/18/19 10:00 11/21/19 09:39 Cozaar - PO 25 mg DAILY [facility] Administration Metoprolol Tartrate 100 mg 11/18/19 22:00 11/21/19 09:39 Lopressor - PO 100 mg BID [facility] Administration Impression 1. CKD 2. a-fib 3. double vision 4. unsteady gait 5. hypothyroidism 6. hld 7. r/o cva Plan - check bmp in am - monitor renal function - avoid nsiads - avoid nephrotixins - bp stable - discussed with medical team - outpt follow up Dr Wahl
--- NOTE | 2019-11-21 18:23 | PN ---
Teaching Attending Note Name of Resident: Gino Land ATTENDING PHYSICIAN STATEMENT I saw and evaluated the patient. I reviewed the resident's note and discussed the case with the resident. I agree with the resident's findings and plan as documented. SUBJECTIVE: pt seen and examined OBJECTIVE: Last Vital Signs Temp Pulse Resp BP Pulse Ox 98.1 F 52 L 18 127/54 L 95 11/21/19 14:00 11/21/19 14:00 11/21/19 14:00 11/21/19 14:00 11/21/19 14:00 GENERAL: Awake, alert, and fully oriented, in no acute distress. HEAD: Normal with no signs of trauma. EYES: Pupils RRR, no diplopia noted, but has some assynchronus conjucate movement. LUNGS: Breath sounds equal, clear to auscultation bilaterally. No wheezes, and no crackles. No accessory muscle use. HEART: Regular rate and rhythm, normal S1 and S2 ABDOMEN: Soft, nontender, not distended MUSCULOSKELETAL: Normal range of motion at all joints. No bony deformities or tenderness. No CVA tenderness. UPPER EXTREMITIES: 2+ pulses, warm, well-perfused. No cyanosis. No clubbing. No peripheral edema. LOWER EXTREMITIES: 2+ pulses, warm, well-perfused. No calf tenderness. No peripheral edema. NEUROLOGICAL: Cranial nerves II-XII intact. Normal speech. CBCD WBC 6.3 K/mm3 (4.0-10.0) 11/18/19 05:40 RBC 4.74 M/mm3 (3.60-5.2) 11/18/19 05:40 Hgb 13.6 GM/dL (10.7-15.3) 11/18/19 05:40 Hct 40.6 % (32.4-45.2) 11/18/19 05:40 MCV 85.6 fl (80-96) 11/18/19 05:40 MCHC 33.4 g/dl (32.0-36.0) 11/18/19 05:40 RDW 13.8 % (11.6-15.6) 11/18/19 05:40 Plt Count 173 K/MM3 (134-434) 11/18/19 05:40 MPV 9.9 fl (7.5-11.1) 11/18/19 05:40 CMP Sodium 136 mmol/L (136-145) 11/20/19 05:35 Potassium 4.3 mmol/L (3.5-5.1) 11/20/19 05:35 Chloride 106 mmol/L (98-107) 11/20/19 05:35 Carbon Dioxide 26 mmol/L (21-32) 11/20/19 05:35 Anion Gap 5 MMOL/L (8-16) L 11/20/19 05:35 BUN 33.3 mg/dL (7-18) H 11/20/19 05:35 Creatinine 1.5 mg/dL (0.55-1.3) H 11/20/19 05:35 Calcium 8.4 mg/dL (8.5-10.1) L 11/20/19 05:35 Total Bilirubin 0.4 mg/dL (0.2-1) 11/18/19 05:40 AST 20 U/L (15-37) 11/18/19 05:40 ALT 26 U/L (13-61) 11/18/19 05:40 Alkaline Phosphatase 97 U/L (45-117) 11/18/19 05:40 Total Protein 6.4 g/dl (6.4-8.2) 11/18/19 05:40 Albumin 3.1 g/dl (3.4-5.0) L 11/18/19 05:40 Active Medications Amlodipine Besylate (Norvasc -) 10 mg PO DAILY [facility] Last Admin: 11/21/19 09:39 Dose: 10 mg Documented by: Apixaban (Eliquis -) 5 mg PO BID [facility] Last Admin: 11/21/19 09:39 Dose: 5 mg Documented by: Aspirin (Asa -) 81 mg PO DAILY [facility] Last Admin: 11/21/19 09:39 Dose: 81 mg Documented by: Atorvastatin Calcium (Lipitor -) 80 mg PO HS [facility] Last Admin: 11/20/19 22:25 Dose: 80 mg Documented by: Insulin Aspart (Novolog Vial Sliding Scale -) 1 vial SQ [facility]; Protocol Last Admin: 11/21/19 17:17 Dose: Not Given Documented by: Levothyroxine Sodium 37.5 mcg/ (Levothyroxine Sodium 50 mcg) 87.5 mcg PO DAILY@0700 [facility] Last Admin: 11/21/19 06:20 Dose: 87.5 mcg Documented by: Losartan Potassium (Cozaar -) 25 mg PO DAILY [facility] Last Admin: 11/21/19 09:39 Dose: 25 mg Documented by: Metoprolol Tartrate (Lopressor -) 100 mg PO BID [facility] Last Admin: 11/21/19 09:39 Dose: 100 mg Documented by: ASSESSMENT AND PLAN: 74 year old female with history of HTN, DM 2, Hypothyroidism, HLD, CKD 3, Atrial Fibrillation (on Eliquis), presented with unsteady gait, double vision, occipital headache. #Acute pontine stroke improving CN deficits (III) MRI/MRA Brain - acute pontine infarct, small chronic basal ganglia infarct Echo normal, bubble study not done. Neurology following increased statin Aspirin added to Eliquis on recommendation of Neurology. Telemonitoring shows episodes of Bigeminy PT for rehab placement paroxysmal AFib on AC CKD DM HTN Hypothyroidism DVT prophylaxis on Eliquis.
[2019-11-21] MEDS: ATORVASTATIN CA 80 MG TABLET (FP) PO SCH (23:04)
[2019-11-22] MEDS ORDERED: LEVOTHYROXINE NA 50 MCG TABLET (FP) ONE (06:40)
[2019-11-22] MEDS ORDERED: LEVOTHYROXINE NA 75 MCG TABLET (FP) ONE (06:40)
[2019-11-22] MEDS: LEVOTHYROXINE PO SCH (06:51)
[2019-11-22] MEDS: INSULIN SLIDING SCALE (NOVOLOG) 1 VIAL SQ SCH ×2 (06:52→11:31)
[2019-11-22] MEDS: LOSARTAN POTASSIUM 25 MG TABLET PO SCH (09:46)
[2019-11-22] MEDS: ASPIRIN 81 MG CHEWABLE TABLETS PO SCH (09:46)
[2019-11-22] MEDS: APIXABAN 5 MG TABLET PO SCH (09:46)
[2019-11-22] MEDS: METOPROLOL TARTRATE 50 MG TABLET (FP) PO SCH (09:47)
--- NOTE | 2019-11-22 11:55 | PN ---
Progress Note, Physician History of Present Illness: HPI 74 year old female history of htn, dm, hypothyroidism, hld, paroxysmal atrial fibrillation on eliquis, TRUE-I cough. She came with with double vision since improving, albeit imbalance persists referable to acute pontine stroke. She was discharged prior to being seen this AM. Last office visit 08/29/2019. - Current Medication List Current Medications: Active Medications Amlodipine Besylate (Norvasc -) 10 mg PO DAILY [facility] Last Admin: 11/21/19 09:39 Dose: 10 mg Documented by: Apixaban (Eliquis -) 5 mg PO BID [facility] Last Admin: 11/22/19 09:46 Dose: 5 mg Documented by: Aspirin (Asa -) 81 mg PO DAILY [facility] Last Admin: 11/22/19 09:46 Dose: 81 mg Documented by: Atorvastatin Calcium (Lipitor -) 80 mg PO HS [facility] Last Admin: 11/21/19 23:04 Dose: 80 mg Documented by: Insulin Aspart (Novolog Vial Sliding Scale -) 1 vial SQ [facility]; Protocol Last Admin: 11/22/19 11:31 Dose: 4 units Documented by: Levothyroxine Sodium 37.5 mcg/ (Levothyroxine Sodium 50 mcg) 87.5 mcg PO DAILY@0700 [facility] Last Admin: 11/22/19 06:51 Dose: 87.5 mcg Documented by: Losartan Potassium (Cozaar -) 25 mg PO DAILY [facility] Last Admin: 11/22/19 09:46 Dose: 25 mg Documented by: Metoprolol Tartrate (Lopressor -) 100 mg PO BID [facility] Last Admin: 11/22/19 09:47 Dose: 100 mg Documented by: - Objective Vital Signs: Vital Signs Temperature 98.3 F 11/22/19 08:00 Pulse Rate 51 L 11/22/19 08:00 Respiratory Rate 16 11/22/19 08:00 Blood Pressure 120/50 L 11/22/19 08:00 O2 Sat by Pulse Oximetry (%) 95 11/22/19 02:00 Labs: CBC, BMP 11/18/19 05:40 11/20/19 05:35 INR, PTT INR 1.02 (0.83-1.09) 11/16/19 08:57 Problem List - Problems (1) Type 2 diabetes mellitus Code(s): E11.9 - TYPE 2 DIABETES MELLITUS WITHOUT COMPLICATIONS Qualifiers: Diabetes mellitus fpc insulin use: with fpc use Diabetes mellitus complication status: with kidney complications Diabetes mellitus complication detail: with nephropathy Qualified Code(s): E11.21 - Type 2 diabetes mellitus with diabetic nephropathy; 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 (2) Hyperlipidemia associated with type 2 diabetes mellitus Code(s): E11.69 - TYPE 2 DIABETES MELLITUS WITH OTHER SPECIFIED COMPLICATION; E78.5 - HYPERLIPIDEMIA, UNSPECIFIED (3) Left pontine stroke Code(s): I63.50 - CEREB INFRC DUE TO UNSP OCCLS OR STENOS OF UNSP CEREB ARTERY (4) Cerebrovascular accident (CVA) Code(s): I63.9 - CEREBRAL INFARCTION, UNSPECIFIED Qualifiers: CVA mechanism: unspecified Qualified Code(s): I63.9 - Cerebral infarction, unspecified (5) Diplopia Code(s): H53.2 - DIPLOPIA (6) Afib Code(s): I48.91 - UNSPECIFIED ATRIAL FIBRILLATION Qualifiers: Atrial fibrillation type: paroxysmal Qualified Code(s): I48.0 - Paroxysmal atrial fibrillation (7) Hypertension Code(s): I10 - ESSENTIAL (PRIMARY) HYPERTENSION Qualifiers: Hypertension type: essential hypertension Qualified Code(s): I10 - Essential (primary) hypertension (8) Hypothyroidism Code(s): E03.9 - HYPOTHYROIDISM, UNSPECIFIED Qualifiers: Hypothyroidism type: unspecified Qualified Code(s): E03.9 - Hypothyroidism, unspecified Assessment/Plan 11/16/2019 CT Head - no acute intracranial findings, some volume loss, mild periventricular chronic ischemic changes 11/16/2019 Brain MRI, MRA - Acute pontine stroke, small chronic left basal ganglia stroke, possoble small chronic right frontal cortical infarct 11/16/2019 Carotid Duplex - mild atheroma L>R, no hemodynamically significant changes. 11/16/2019 Echo: Normal biventricular size and fxn, tr TR Carotid US: 08/22/2018 Diffuse bilateral intimal thickening with calcified plaque involving distal left CCA, left carotid bulb and prox LICA. No hemodynamically significant stenosis EKG:SB@ 58PRWP c/w previous 02/21/2019, no sig change Holter Monitor: 02/16/2018 NSR 1.4% PAC, 0.4% PAF avg rate 66 bpm, range 50-137 bpm Echocardiography: 01/28/18 normal LV size and systolic function, LV diastolic dysfunction, mild TR Nuclear stress: 01/28/2018 No ischemia LVEF 69%, had episode of rapid afib up to 180 bpm with rate-related changes during exercise spontaneously converted NSR Assessment: 1. Unsteady gait, double vision, occipital headache referable to acute pontine stroke, h/o previous strokes 2. Paroxysmal atrial fibrillation with RVR -> NSR on Eliquis 3. CKD 3 with proteinuria likely diabetic nephropathy 4. Type 2 DM 5. HTN/HCVD 6. Hypothyroidism 7. Hyperlipidemia 8. COPD with h/o exacerbation 9. Diastolic dysfunction 10. Carotid atherosclerotic plaques w/o significant stenosis 11. Possible TRUE-I associated cough Plan: 1. Continue aspirin 81 qd, Eliquis 5 bid, Lipitor 80 qd, Norvasc 10 qd. Lopressor 100 bid, losartan 25 qd as hemodynamics tolerate 2. Previous holter monitor confirms rare paroxysmal afib recurrence, continue telemetry monitoring 3. PT and speech/swallow therapy 4. Follow up in office with Dr. Reginaldo Espana, [facility]
[2019-11-22] MEDS: amLODIPine BESYLATE 10 MG TABLET (FP) PO SCH (12:24)
--- NOTE | 2019-11-22 12:44 | PN ---
Progress Note, Physician History of Present Illness: Pt seen and examined at bedside. She is awake and alert. She denies shortness of breath. - Current Medication List Current Medications: Active Medications Amlodipine Besylate (Norvasc -) 10 mg PO DAILY [facility] Last Admin: 11/22/19 12:24 Dose: 10 mg Documented by: Apixaban (Eliquis -) 5 mg PO BID [facility] Last Admin: 11/22/19 09:46 Dose: 5 mg Documented by: Aspirin (Asa -) 81 mg PO DAILY [facility] Last Admin: 11/22/19 09:46 Dose: 81 mg Documented by: Atorvastatin Calcium (Lipitor -) 80 mg PO HS [facility] Last Admin: 11/21/19 23:04 Dose: 80 mg Documented by: Insulin Aspart (Novolog Vial Sliding Scale -) 1 vial SQ [facility]; Protocol Last Admin: 11/22/19 11:31 Dose: 4 units Documented by: Levothyroxine Sodium 37.5 mcg/ (Levothyroxine Sodium 50 mcg) 87.5 mcg PO DAILY@0700 [facility] Last Admin: 11/22/19 06:51 Dose: 87.5 mcg Documented by: Losartan Potassium (Cozaar -) 25 mg PO DAILY [facility] Last Admin: 11/22/19 09:46 Dose: 25 mg Documented by: Metoprolol Tartrate (Lopressor -) 100 mg PO BID [facility] Last Admin: 11/22/19 09:47 Dose: 100 mg Documented by: - Objective Vital Signs: Vital Signs Temperature 98.3 F 11/22/19 08:00 Pulse Rate 51 L 11/22/19 08:00 Respiratory Rate 16 11/22/19 08:00 Blood Pressure 120/50 L 11/22/19 08:00 O2 Sat by Pulse Oximetry (%) 95 11/22/19 02:00 Constitutional: Yes: Calm Eyes: Yes: Conjunctiva Clear HENT: Yes: Atraumatic Neck: Yes: Supple Cardiovascular: Yes: Pulse Irregular, S1, S2 Respiratory: Yes: CTA Bilaterally Gastrointestinal: Yes: Soft Genitourinary: Yes: WNL Musculoskeletal: Yes: WNL Edema: No Psychiatric: Yes: Oriented Labs: CBC, BMP 11/18/19 05:40 11/20/19 05:35 INR, PTT INR 1.02 (0.83-1.09) 11/16/19 08:57 Assessment/Plan Current Medications Generic Name Dose Route Start Last Admin Trade Name Krys PRN Reason Stop Dose Admin Amlodipine Besylate 10 mg 11/17/19 10:00 11/22/19 12:24 Norvasc - PO 10 mg DAILY [facility] Administration Apixaban 5 mg 11/16/19 10:00 11/22/19 09:46 Eliquis - PO 5 mg BID [facility] Administration Aspirin 81 mg 11/16/19 10:00 11/22/19 09:46 Asa - PO 81 mg DAILY [facility] Administration Atorvastatin Calcium 80 mg 11/16/19 22:00 11/21/19 23:04 Lipitor - PO 80 mg HS [facility] Administration Insulin Aspart 1 vial 11/16/19 07:00 11/22/19 11:31 Novolog Vial Sliding Scale - SQ 4 units ACHS [facility] Administration Protocol Levothyroxine Sodium 37.5 mcg/ 87.5 mcg 11/17/19 07:00 11/22/19 06:51 Levothyroxine Sodium 50 mcg PO 87.5 mcg DAILY@0700 [facility] Administration Losartan Potassium 25 mg 11/18/19 10:00 11/22/19 09:46 Cozaar - PO 25 mg DAILY [facility] Administration Metoprolol Tartrate 100 mg 11/18/19 22:00 11/22/19 09:47 Lopressor - PO 100 mg BID [facility] Administration Impression 1. CKD 2. a-fib 3. double vision 4. unsteady gait 5. hypothyroidism 6. hld 7. r/o cva Plan - follow bmp - monitor bp - will need outpt follow up - avoid nsiads - avoid nephrotixins - bp stable Dr Wahl
[2019-11-22 13:33] VITALS: BP 145/65; PULSE 59; TEMP 98
--- NOTE | 2019-11-22 15:24 | PN ---
Teaching Attending Note Name of Resident: Gino Land ATTENDING PHYSICIAN STATEMENT I saw and evaluated the patient. I reviewed the resident's note and discussed the case with the resident. I agree with the resident's findings and plan as documented. SUBJECTIVE: OBJECTIVE: Last Vital Signs Temp Pulse Resp BP Pulse Ox 98.0 F 59 L 19 145/65 99 11/22/19 12:00 11/22/19 12:00 11/22/19 12:00 11/22/19 12:00 11/22/19 09:00 GENERAL: Awake, alert, and fully oriented, in no acute distress. EYES: Pupils equal, round and reactive to light, no dipolpia today LUNGS: Breath sounds equal, clear to auscultation bilaterally. No wheezes, and no crackles. No accessory muscle use. HEART: Regular rate and rhythm, normal S1 and S2 ABDOMEN: Soft, nontender, not distended MUSCULOSKELETAL: Normal range of motion at all joints. No bony deformities or tenderness. No CVA tenderness. LOWER EXTREMITIES: 2+ pulses, warm, well-perfused. No calf tenderness. No peripheral edema. NEUROLOGICAL: Cranial nerves II-XII intact. Normal speech. Laboratory Last Values WBC 6.3 K/mm3 (4.0-10.0) 11/18/19 05:40 Corrected WBC (auto) Cancelled 11/17/19 10:25 RBC 4.74 M/mm3 (3.60-5.2) 11/18/19 05:40 Hgb 13.6 GM/dL (10.7-15.3) 11/18/19 05:40 Hct 40.6 % (32.4-45.2) 11/18/19 05:40 MCV 85.6 fl (80-96) 11/18/19 05:40 MCH 28.6 pg (25.7-33.7) 11/18/19 05:40 MCHC 33.4 g/dl (32.0-36.0) 11/18/19 05:40 RDW 13.8 % (11.6-15.6) 11/18/19 05:40 Plt Count 173 K/MM3 (134-434) 11/18/19 05:40 MPV 9.9 fl (7.5-11.1) 11/18/19 05:40 Absolute Neuts (auto) 3.8 K/mm3 (1.5-8.0) 11/18/19 05:40 Neutrophils % 60.8 % (42.8-82.8) 11/18/19 05:40 Lymphocytes % 28.1 % (8-40) 11/18/19 05:40 Monocytes % 9.1 % (3.8-10.2) 11/18/19 05:40 Eosinophils % 1.4 % (0-4.5) 11/18/19 05:40 Basophils % 0.6 % (0-2.0) 11/18/19 05:40 Nucleated RBC % 0 % (0-0) 11/18/19 05:40 Platelet Estimate Cancelled 11/17/19 10:25 Platelet Comment Cancelled 11/17/19 10:25 PT with INR 12.00 SEC (9.7-13.0) 11/16/19 08:57 INR 1.02 (0.83-1.09) 11/16/19 08:57 PTT (Actin FS) 34.5 SECONDS (25.2-36.5) 11/16/19 08:57 Sodium 136 mmol/L (136-145) 11/20/19 05:35 Potassium 4.3 mmol/L (3.5-5.1) 11/20/19 05:35 Chloride 106 mmol/L (98-107) 11/20/19 05:35 Carbon Dioxide 26 mmol/L (21-32) 11/20/19 05:35 Anion Gap 5 MMOL/L (8-16) L 11/20/19 05:35 BUN 33.3 mg/dL (7-18) H 11/20/19 05:35 Creatinine 1.5 mg/dL (0.55-1.3) H 11/20/19 05:35 Est GFR (CKD-EPI)AfAm 39.09 11/20/19 05:35 Est GFR (CKD-EPI)NonAf 33.73 11/20/19 05:35 POC Glucometer 229 UNITS (80-120) 11/22/19 11:22 Random Glucose 139 mg/dL (74-106) H 11/20/19 05:35 Calcium 8.4 mg/dL (8.5-10.1) L 11/20/19 05:35 Phosphorus 3.7 mg/dL (2.5-4.9) 11/18/19 05:40 Magnesium 1.9 mg/dL (1.8-2.4) 11/18/19 05:40 Total Bilirubin 0.4 mg/dL (0.2-1) 11/18/19 05:40 AST 20 U/L (15-37) 11/18/19 05:40 ALT 26 U/L (13-61) 11/18/19 05:40 Alkaline Phosphatase 97 U/L (45-117) 11/18/19 05:40 Creatine Kinase 170 U/L (26-192) 11/17/19 10:25 Creatine Kinase Index 2.6 % (0.0-5.0) 11/17/19 10:25 CK-MB (CK-2) 4.5 ng/mL (0.5-3.6) H 11/17/19 10:25 Troponin I < 0.02 ng/ml (0.00-0.05) 11/16/19 Unknown Total Protein 6.4 g/dl (6.4-8.2) 11/18/19 05:40 Albumin 3.1 g/dl (3.4-5.0) L 11/18/19 05:40 Triglycerides 66 mg/dL (0-150) 11/16/19 08:57 Cholesterol 185 mg/dL (50-200) 11/16/19 08:57 Total LDL Cholesterol 85 mg/dL (5-100) 11/16/19 08:57 HDL Cholesterol 83 mg/dL (40-60) H 11/16/19 08:57 TSH 8.16 uIU/ml (0.358-3.74) H 11/16/19 08:57 Free T4 0.95 ng/dl (0.76-1.46) 11/16/19 08:57 Thyroxine (T4) 7.2 ug/dl (4.5-13.9) 11/16/19 08:57 Resin T3 Uptake 33.9 % (30-39) 11/16/19 08:57 Urine Color Yellow 11/16/19 03:41 Urine Appearance Clear 11/16/19 03:41 Urine pH 7.0 (5.0-8.0) 11/16/19 03:41 Ur Specific [place] 1.007 (1.010-1.035) L 11/16/19 03:41 Urine Protein 2+ (NEGATIVE) H 11/16/19 03:41 Urine Glucose (UA) Negative (NEGATIVE) 11/16/19 03:41 Urine Ketones Negative (NEGATIVE) 11/16/19 03:41 Urine Blood Trace (NEGATIVE) 11/16/19 03:41 Urine Nitrite Negative (NEGATIVE) 11/16/19 03:41 Urine Bilirubin Negative (NEGATIVE) 11/16/19 03:41 Urine Urobilinogen 0.2 mg/dL (0.2-1.0) 11/16/19 03:41 Ur Leukocyte Esterase Trace (NEGATIVE) 11/16/19 03:41 Urine WBC (Auto) 31 /uL (0-25.8) 11/16/19 03:41 Urine RBC (Auto) 16 /uL (0-23.9) 11/16/19 03:41 Urine Casts (Auto) 0 /uL (0-3.1) 11/16/19 03:41 U Epithel Cells (Auto) 13 /uL (0-25.1) 11/16/19 03:41 Urine Bacteria (Auto) 87 /uL (0-1359) 11/16/19 03:41 COVID-19 ([facility]) Not detected (Not Detected) 11/16/19 04:05 Blood Type B POSITIVE 11/16/19 02:30 Antibody Screen Negative 11/16/19 02:30 ASSESSMENT AND PLAN: 74 year old female with history of HTN, DM 2, Hypothyroidism, HLD, CKD 3, Atrial Fibrillation (on Eliquis), presented with unsteady gait, double vision, occipital headache. #Acute pontine stroke improving CN deficits (III) MRI/MRA Brain - acute pontine infarct, small chronic basal ganglia infarct Echo normal, bubble study not done. Neurology following increased statin Aspirin added to Eliquis on recommendation of Neurology. Telemonitoring shows episodes of [facility] PT for rehab placement paroxysmal AFib on AC CKD DM HTN Hypothyroidism DVT prophylaxis on Eliquis.
--- NOTE | 2019-11-22 21:51 | PN ---
Progress Note (short form) - Note Progress Note: 74 year old female history of htn, dm, hypothyroidism, hld, atrial fibrillation on eliquis. She came with with double vision and unsteady gait. It started wednesday afternoon. Patient denies any weakness , numbness, loc or seizure like activity. Patient has normal ct head. -- Much improved and no new symptoms , being discharged today NEUROLOGICAL EXAMINATION Alert and follow command, neck is supple vss there is minimal nystagmus on right lateral gaze on right eye and there is limitation of abduction on left eye on right gaze( improved since admission) there is is no limitation on left lateral gaze pupil is reactive ext is normal in strength ct head unremarkable mri of brain showed pontine stroke and carotid ultrasound unremarkable Assessment/Plan brain stem stroke, clinicaly improving Plan-- continue aspirin and statin and eliquis - follow up outpatient Thanking you so much Reynold Mcdonough MD
== END 2019-11-22 13:20 | DRG 65 ==
LOC: JER 02:05 → JERBED 02:50 → JICU 11-17
PROVIDERS: ADMIT Internal Medicine; ATTEND Student in an Organized Health Care Education/Training Program
DX: I63.29 Cerebral infarction due to unspecified occlusion or stenosis of other precerebral arteries (principal); I50.30 Unspecified diastolic (congestive) heart failure; I13.0 Hypertensive heart and chronic kidney disease with heart failure and stage 1 through stage 4 chronic kidney disease, or unspecified chronic kidney disease; N13.30 Unspecified hydronephrosis; E03.9 Hypothyroidism, unspecified; N18.3 Chronic kidney disease, stage 3 (moderate); R26.81 Unsteadiness on feet; E78.5 Hyperlipidemia, unspecified; I48.0 Paroxysmal atrial fibrillation; J44.9 Chronic obstructive pulmonary disease, unspecified; H53.2 Diplopia; R42 Dizziness and giddiness; R55 Syncope and collapse; H55.09 Other forms of nystagmus; H50.9 Unspecified strabismus; G58.8 Other specified mononeuropathies; E11.22 Type 2 diabetes mellitus with diabetic chronic kidney disease; E11.69 Type 2 diabetes mellitus with other specified complication; H49.02 Third [oculomotor] nerve palsy, left eye; N26.1 Atrophy of kidney (terminal); I49.8 Other specified cardiac arrhythmias
CPT/HCPCS: 36415; 70450-TC; 70544-TC; 70551-TC; 76775-TC; 80048; 80053; 80061; 81003; 82550; 82553; 82962; 83721; 83735; 84100; 84436; 84439; 84443; 84479; 84484; 85025; 85610; 85730; 86850; 86900; 86901; 87077; 87086; 93005; 93010; 93306-TC; 93880-TC; 97116-GP; 97162-GP; 99285-25; U0003

== ENCOUNTER 2021-01-31 01:31 | Inpatient (IN) | payer OTHER ==
[2021-01-31] MEDS ORDERED: ACETAMINOPHEN 1000 MG/100 ML VIAL IVPB ONE (01:42)
[2021-01-31] MEDS ORDERED: ACETAMINOPHEN INJECTION 100 ML IVPB ONE (02:05)
[2021-01-31] MEDS ORDERED: VANCOMYCIN 1 GRAM (PRE-DOCKED) 1,000 MG/250 ML BAG IVPB ONE (02:10)
[2021-01-31] MEDS ORDERED: VANCOMYCIN 1 GM in D5W (PRE-DOCKED) 1,000 MG/250 ML IVPB ONE (02:10)
[2021-01-31] MEDS ORDERED: PIPERACILLIN/TAZOB 4.5 GM 4.5 GM/100 ML BAG IVPB ONE (02:10)
[2021-01-31] MEDS ORDERED: PIPERACILLIN/TAZOB 4.5 GM 4.5 GM in DEXTROSE 5%-WATER 100 ML IVPB ONE (02:10)
[2021-01-31 02:26] LABS: VENOUS BASE EXCESS 2.4 mmol/L (-2-2); VENOUS O2 SATURATION 69.3 % (70-80); VENOUS PCO2 57.2 mmHg (38-52); VENOUS PH 7.333 (7.310-7.410)
[2021-01-31 02:28] LABS: HEMOGLOBIN 12.5 GM/dL (10.7-15.3); MCH 29.2 pg (25.7-33.7); MEAN CELL VOLUME 91.3 fl (80-96); MEAN PLT VOLUME 10.5 fl (7.5-11.1); PLATELET COUNT 176 10^3/uL (134-434); RBC 4.26 M/mm3 (3.60-5.2); RDW 17.9 % (11.6-15.6); WHITE BLOOD COUNT 10.7 K/mm3 (4.0-10.0)
[2021-01-31 02:38] LABS: INR 0.93 (0.83-1.09); PROTHROMBIN TIME (PATIENT) 10.4 SEC (9.7-13.0)
[2021-01-31 02:40] LABS: ACTIVATED PTT 23.8 SECONDS (25.2-36.5)
[2021-01-31 03:02] LABS: CREATININE 3.3 mg/dL (0.55-1.3); SODIUM 143 mmol/L (136-145)
[2021-01-31] MEDS ORDERED: SODIUM CHLORIDE 0.9% 500 ML INFUS.BAG IV ONE (03:04)
[2021-01-31 03:05] LABS: ALBUMIN 2.3 g/dl (3.4-5.0); CALCIUM 8.5 mg/dL (8.5-10.1); CHLORIDE 109 mmol/L (98-107); CO2 28 mmol/L (21-32); TOT PROT 7.2 g/dl (6.4-8.2)
[2021-01-31 03:06] LABS: ALK PHOS 121 U/L (45-117); BILIRUBIN,TOTAL 0.8 mg/dL (0.2-1); SGPT/ALT 28 U/L (13-61)
[2021-01-31 03:09] LABS: EPI CELLS 2 /uL (0-25.1); HYALINE CASTS 0 /uL (0-3.1); URINE BACTERIA 4104 /uL (0-1359); URINE RBC 17 /uL (0-23.9); URINE WBC 1853 /uL (0-25.8)
[2021-01-31 03:11] LABS: LACTIC ACID 2.7 mmol/L (0.4-2.0)
[2021-01-31 03:51] LABS: CALCIUM 7.9 mg/dL (8.5-10.1); CO2 28 mmol/L (21-32); CREATININE 3.1 mg/dL (0.55-1.3); SODIUM 145 mmol/L (136-145)
[2021-01-31 03:52] LABS: BILIRUBIN,TOTAL 0.4 mg/dL (0.2-1); TOT PROT 5.6 g/dl (6.4-8.2)
[2021-01-31 03:53] LABS: ALK PHOS 107 U/L (45-117); SGOT/AST 10 U/L (15-37); SGPT/ALT 19 U/L (13-61)
[2021-01-31] MEDS ORDERED: ALBUTEROL SO4 2.5/IPRATROPIUM 0.5 INH SOL 3 ML VIAL.NEB. NEB ONE ×2 (05:44→05:52)
[2021-01-31] MEDS ORDERED: ACETAMINOPHEN 325 MG TABLET (FP) PO PRN (06:01)
[2021-01-31] MEDS ORDERED: SODIUM CHLORIDE 1,000 ML IV SCH (06:15)
[2021-01-31] MEDS ORDERED: PT OWN MED DRAWER 7, Y5N ONE ×2 (06:20→14:14)
[2021-01-31] MEDS ORDERED: CALCIUM CHLORIDE 1 GM/10 ML *DISP.SYRIN ONE (06:31)
[2021-01-31] MEDS ORDERED: INSULIN REGULAR HUMAN 100 UNITS/ML *VIAL IVPUSH ONE (06:32)
[2021-01-31] MEDS ORDERED: CALCIUM GLUCONATE 10% - 1,000 MG/10 ML VIAL IVPB ONE (06:34)
[2021-01-31] MEDS ORDERED: CALCIUM GLUCONATE 10% - 1,000 MG/10 ML VIAL ONE (06:34)
[2021-01-31] MEDS: NOREPINEPHRINE D5W PREMIX 16,000 MCG/500 ML BAG IVPB SCH (06:37)
[2021-01-31] MEDS: HEPARIN NA (PORCINE) 5,000 UNITS/ML 1ML VIAL SQ SCH ×3 (06:39→21:22)
[2021-01-31] MEDS: CALCIUM CHLORIDE 10% 1 GM/10 ML *VIAL IVPB ONE ×2 (06:39→07:03)
[2021-01-31] MEDS ORDERED: HEPARIN NA (PORCINE) 5,000 UNITS/ML 1ML VIAL ONE (06:48)
[2021-01-31] MEDS ORDERED: SODIUM CHLORIDE 1,000 ML IV STA (07:03)
[2021-01-31 07:31] LABS: ANISOCYTOSIS 2+; HELMET CELLS 1+; MACROCYTOSIS 0; PLATELET ESTIMATE NORMAL
[2021-01-31 08:33] LABS: LACTIC ACID 3.2 mmol/L (0.4-2.0)
[2021-01-31] MEDS ORDERED: METOPROLOL TARTRATE 5 MG/5 ML VIAL IVPUSH PRN (09:01)
[2021-01-31] MEDS ORDERED: DEXTROSE 5%-WATER - 50 ML IVPB ONE ×2 (09:29→16:10)
[2021-01-31] MEDS ORDERED: PIPERACILLIN/TAZOBACTAM 2.25 GM VIAL IVPB ONE ×2 (09:29→16:10)
[2021-01-31] MEDS: SODIUM ZIRCONIUM CYCLOSILICATE (LOKELMA) 5 GM PACKET PO SCH (09:38)
[2021-01-31] MEDS: PIPERACILLIN/TAZOB 2.25 GM 2.25 GM in DEXTROSE 5%-WATER - 50 ML IVPB SCH ×2 (09:38→17:21)
[2021-01-31] MEDS ORDERED: PIPERACILLIN/TAZOB 3.375 GM 3.375 GM in DEXTROSE 5%-WATER - 50 ML IVPB SCH (10:00)
[2021-01-31 11:04] LABS: HEMATOCRIT 35.3 % (32.4-45.2); HEMOGLOBIN 11.1 GM/dL (10.7-15.3); MCH 29.2 pg (25.7-33.7); MCHC 31.4 g/dl (32.0-36.0); MEAN CELL VOLUME 92.9 fl (80-96); MEAN PLT VOLUME 11.3 fl (7.5-11.1); PLATELET COUNT 152 10^3/uL (134-434); WHITE BLOOD COUNT 12.5 K/mm3 (4.0-10.0)
[2021-01-31 11:55] LABS: ALBUMIN 2.3 g/dl (3.4-5.0); ALK PHOS 117 U/L (45-117); ANION GAP 9 MMOL/L (8-16); BILIRUBIN,TOTAL 0.5 mg/dL (0.2-1); BLOOD UREA NITROGEN 99.6 mg/dL (7-18); CALCIUM 8.3 mg/dL (8.5-10.1); CHLORIDE 114 mmol/L (98-107); CO2 25 mmol/L (21-32); CREATININE 2.6 mg/dL (0.55-1.3); GLUCOSE,RANDOM 499 mg/dL (74-106); MAGNESIUM 3.2 mg/dL (1.8-2.4); PHOSPHOROUS 4.6 mg/dL (2.5-4.9); SGOT/AST 14 U/L (15-37); SGPT/ALT 23 U/L (13-61); SODIUM 148 mmol/L (136-145); TOT PROT 6.2 g/dl (6.4-8.2)
[2021-01-31 12:27] LABS: URINE APPEARANCE Clear; URINE BILIRUBIN Negative (NEGATIVE); URINE COLOR Yellow; URINE GLUCOSE (UA) 1+ (NEGATIVE); URINE KETONE Negative (NEGATIVE); URINE LEUK ESTERASE 1+ (NEGATIVE); URINE NITRITE Negative (NEGATIVE); URINE PROTEIN 1+ (NEGATIVE); URINE UROBILINOGEN 0.2 mg/dL (0.2-1.0)
[2021-01-31] MEDS: INSULIN SLIDING SCALE (NOVOLOG) 1 VIAL SQ SCH ×3 (12:30→21:26)
[2021-01-31] MEDS: SODIUM CHLORIDE 0.45% 1,000 ML IV SCH (14:12)
[2021-01-31 14:54] LABS: ANISOCYTOSIS 1+; MACROCYTOSIS 0; OVALOCYTE 2+; PLATELET ESTIMATE DECREASED
[2021-01-31] MEDS: MUPIROCIN 2% TOPICAL OINTMENT FOR DECOLONIZATION NS SCH ×2 (15:37→21:23)
[2021-01-31] MEDS: INSULIN (LEVEMIR) 100 UNITS/ML UNITS SQ SCH ×2 (16:27→21:22)
[2021-01-31] MEDS: METOPROLOL TARTRATE 50 MG TABLET (FP) PO SCH ×2 (16:29→21:22)
[2021-01-31 20:13] LABS: ANION GAP 7 MMOL/L (8-16); CHLORIDE 110 mmol/L (98-107)
[2021-01-31 20:13] LABS: SGOT/AST 74 U/L (15-37)
[2021-01-31] MEDS: CHLORHEXIDINE GLUCONATE 4% CLEANSER FOR DECOLONIZATION TP SCH (21:22)
[2021-01-31 23:21] LABS: BLOOD UREA NITROGEN 109.1 mg/dL (7-18); GLUCOSE,RANDOM 497 mg/dL (74-106)
[2021-01-31 23:21] LABS: ANION GAP 6 MMOL/L (8-16); BLOOD UREA NITROGEN 116.5 mg/dL (7-18); GLUCOSE,RANDOM 454 mg/dL (74-106)
[2021-02-01] MEDS ORDERED: DEXTROSE 5%-WATER - 50 ML IVPB ONE ×3 (01:22→17:28)
[2021-02-01] MEDS ORDERED: PIPERACILLIN/TAZOBACTAM 2.25 GM VIAL IVPB ONE ×3 (01:22→17:28)
[2021-02-01] MEDS: PIPERACILLIN/TAZOB 2.25 GM 2.25 GM in DEXTROSE 5%-WATER - 50 ML IVPB SCH ×3 (01:25→17:29)
[2021-02-01] MEDS: SODIUM CHLORIDE 0.45% 1,000 ML IV SCH (02:32)
[2021-02-01] MEDS: NOREPINEPHRINE D5W PREMIX 16,000 MCG/500 ML BAG IVPB SCH (04:49)
[2021-02-01] MEDS: HEPARIN NA (PORCINE) 5,000 UNITS/ML 1ML VIAL SQ SCH ×3 (05:27→21:51)
[2021-02-01 07:06] LABS: CALCIUM 8.6 mg/dL (8.5-10.1)
[2021-02-01 07:07] LABS: ALBUMIN 1.9 g/dl (3.4-5.0); MAGNESIUM 2.8 mg/dL (1.8-2.4)
[2021-02-01 07:10] LABS: CREATININE 1.6 mg/dL (0.55-1.3)
[2021-02-01 07:11] LABS: BILIRUBIN,TOTAL 0.4 mg/dL (0.2-1)
[2021-02-01 07:16] LABS: TOT PROT 5.7 g/dl (6.4-8.2)
[2021-02-01 07:19] LABS: BLOOD UREA NITROGEN 60.6 mg/dL (7-18)
[2021-02-01 07:31] LABS: HEMATOCRIT 32.2 % (32.4-45.2); HEMOGLOBIN 10.6 GM/dL (10.7-15.3); MCH 29.4 pg (25.7-33.7); MEAN CELL VOLUME 89.3 fl (80-96); MEAN PLT VOLUME 10.3 fl (7.5-11.1); PLATELET COUNT 167 10^3/uL (134-434); RBC 3.61 M/mm3 (3.60-5.2); RDW 17.1 % (11.6-15.6); WHITE BLOOD COUNT 11.8 K/mm3 (4.0-10.0)
[2021-02-01] MEDS: INSULIN (LEVEMIR) 100 UNITS/ML UNITS SQ SCH ×3 (08:20→21:54)
[2021-02-01] MEDS: INSULIN SLIDING SCALE (NOVOLOG) 1 VIAL SQ SCH ×4 (08:21→22:14)
[2021-02-01] MEDS: MUPIROCIN 2% TOPICAL OINTMENT FOR DECOLONIZATION NS SCH ×2 (09:06→21:51)
[2021-02-01] MEDS: METOPROLOL TARTRATE 50 MG TABLET (FP) PO SCH ×2 (09:12→21:51)
[2021-02-01] MEDS: SODIUM ZIRCONIUM CYCLOSILICATE (LOKELMA) 5 GM PACKET PO SCH (09:14)
[2021-02-01] MEDS ORDERED: VANCOMYCIN 1 GM in D5W (PRE-DOCKED) 1,000 MG/250 ML IVPB SCH (10:00)
[2021-02-01] MEDS: PANTOPRAZOLE SOD 40 MG SUSPENSION PACKET PO SCH (10:25)
[2021-02-01] MEDS: DEXTROSE 5%-1/3 NS - 500 ML IV SCH ×4 (14:31→23:27)
[2021-02-01] MEDS: CHLORHEXIDINE GLUCONATE 4% CLEANSER FOR DECOLONIZATION TP SCH (21:51)
[2021-02-02] MEDS ORDERED: DEXTROSE 5%-WATER - 50 ML IVPB ONE ×3 (01:22→18:36)
[2021-02-02] MEDS ORDERED: PIPERACILLIN/TAZOBACTAM 2.25 GM VIAL IVPB ONE ×3 (01:22→18:36)
[2021-02-02] MEDS: PIPERACILLIN/TAZOB 2.25 GM 2.25 GM in DEXTROSE 5%-WATER - 50 ML IVPB SCH ×3 (01:27→18:52)
[2021-02-02] MEDS: DEXTROSE 5%-1/3 NS - 500 ML IV SCH ×2 (03:15→09:24)
[2021-02-02] MEDS: HEPARIN NA (PORCINE) 5,000 UNITS/ML 1ML VIAL SQ SCH ×3 (05:44→21:25)
[2021-02-02] MEDS: INSULIN (LEVEMIR) 100 UNITS/ML UNITS SQ SCH ×2 (06:19→22:13)
[2021-02-02] MEDS: INSULIN SLIDING SCALE (NOVOLOG) 1 VIAL SQ SCH ×4 (06:19→21:35)
[2021-02-02 07:05] LABS: BASO % 0.1 % (0-2.0); EOS % 0.5 % (0-4.5); HEMATOCRIT 33.1 % (32.4-45.2); MCH 29.5 pg (25.7-33.7); MCHC 33.1 g/dl (32.0-36.0); MEAN CELL VOLUME 89.1 fl (80-96); MEAN PLT VOLUME 10.2 fl (7.5-11.1); MONO % 4.5 % (3.8-10.2); NEUT % 87.9 % (42.8-82.8); PLATELET COUNT 183 10^3/uL (134-434); RBC 3.72 M/mm3 (3.60-5.2); RDW 16.8 % (11.6-15.6); WHITE BLOOD COUNT 8.7 K/mm3 (4.0-10.0)
[2021-02-02 07:22] LABS: ALBUMIN 1.9 g/dl (3.4-5.0); MAGNESIUM 2.4 mg/dL (1.8-2.4)
[2021-02-02 07:25] LABS: PHOSPHOROUS 2.5 mg/dL (2.5-4.9)
[2021-02-02 07:26] LABS: BILIRUBIN,TOTAL 0.3 mg/dL (0.2-1); CREATININE 1.4 mg/dL (0.55-1.3); TOT PROT 5.6 g/dl (6.4-8.2)
[2021-02-02] MEDS: MUPIROCIN 2% TOPICAL OINTMENT FOR DECOLONIZATION NS SCH ×2 (10:11→21:25)
[2021-02-02] MEDS: METOPROLOL TARTRATE 50 MG TABLET (FP) PO SCH ×2 (10:11→21:35)
[2021-02-02] MEDS: PANTOPRAZOLE SOD 40 MG SUSPENSION PACKET PO SCH (10:11)
[2021-02-02] MEDS: CHLORHEXIDINE GLUCONATE 4% CLEANSER FOR DECOLONIZATION TP SCH (21:25)
[2021-02-03] MEDS ORDERED: PIPERACILLIN/TAZOBACTAM 2.25 GM VIAL IVPB ONE ×3 (01:04→10:29)
[2021-02-03] MEDS ORDERED: DEXTROSE 5%-WATER - 50 ML IVPB ONE ×4 (01:05→13:07)
[2021-02-03] MEDS: PIPERACILLIN/TAZOB 2.25 GM 2.25 GM in DEXTROSE 5%-WATER - 50 ML IVPB SCH ×2 (01:18→10:30)
[2021-02-03] MEDS: HEPARIN NA (PORCINE) 5,000 UNITS/ML 1ML VIAL SQ SCH ×3 (05:23→22:00)
[2021-02-03 08:08] LABS: CALCIUM 8.4 mg/dL (8.5-10.1)
[2021-02-03 08:09] LABS: BLOOD UREA NITROGEN 28.3 mg/dL (7-18); MAGNESIUM 2.4 mg/dL (1.8-2.4)
[2021-02-03 08:12] LABS: CREATININE 1.3 mg/dL (0.55-1.3); PHOSPHOROUS 2.5 mg/dL (2.5-4.9)
[2021-02-03] MEDS: PANTOPRAZOLE SOD 40 MG SUSPENSION PACKET PO SCH (10:28)
[2021-02-03] MEDS: METOPROLOL TARTRATE 50 MG TABLET (FP) PO SCH ×2 (10:28→22:01)
[2021-02-03] MEDS: MUPIROCIN 2% TOPICAL OINTMENT FOR DECOLONIZATION NS SCH ×2 (10:31→22:00)
[2021-02-03] MEDS: INSULIN SLIDING SCALE (NOVOLOG) 1 VIAL SQ SCH ×3 (10:52→21:59)
[2021-02-03] MEDS ORDERED: cefTRIAXone SODIUM 1 GM VIAL ONE (13:07)
[2021-02-03] MEDS: CEFTRIAXONE 1 GM in DEXTROSE 5%-WATER - 50 ML IVPB SCH (13:10)
[2021-02-03] MEDS: INSULIN (LEVEMIR) 100 UNITS/ML UNITS SQ SCH (21:58)
[2021-02-03] MEDS: CHLORHEXIDINE GLUCONATE 4% CLEANSER FOR DECOLONIZATION TP SCH (22:01)
[2021-02-03] MEDS ORDERED: ACETAMINOPHEN 325 MG TABLET (FP) PO PRN (22:11)
[2021-02-04] MEDS: HEPARIN NA (PORCINE) 5,000 UNITS/ML 1ML VIAL SQ SCH ×3 (06:10→22:05)
[2021-02-04] MEDS: INSULIN (LEVEMIR) 100 UNITS/ML UNITS SQ SCH ×2 (06:10→22:06)
[2021-02-04] MEDS: INSULIN SLIDING SCALE (NOVOLOG) 1 VIAL SQ SCH ×4 (06:11→22:06)
[2021-02-04] MEDS ORDERED: DEXTROSE 5%-WATER - 50 ML IVPB ONE (10:41)
[2021-02-04] MEDS ORDERED: cefTRIAXone SODIUM 1 GM VIAL ONE (10:41)
[2021-02-04] MEDS: levETIRAcetam 250 MG TABLET PO SCH ×2 (10:51→22:05)
[2021-02-04] MEDS: busPIRone HCL 10 MG TABLET (FP) PO SCH ×2 (10:51→22:05)
[2021-02-04] MEDS: CEFTRIAXONE 1 GM in DEXTROSE 5%-WATER - 50 ML IVPB SCH (10:52)
[2021-02-04] MEDS: METOPROLOL TARTRATE 50 MG TABLET (FP) PO SCH ×2 (10:52→22:09)
[2021-02-04] MEDS: PANTOPRAZOLE SOD 40 MG SUSPENSION PACKET PO SCH (11:17)
[2021-02-04 14:14] VITALS: BMI 24.7
[2021-02-04] MEDS: MIRTAZAPINE 30 MG TABLET PO SCH (22:05)
[2021-02-05] MEDS: INSULIN (LEVEMIR) 100 UNITS/ML UNITS SQ SCH ×2 (06:34→22:20)
[2021-02-05] MEDS: INSULIN SLIDING SCALE (NOVOLOG) 1 VIAL SQ SCH ×4 (06:35→22:19)
[2021-02-05] MEDS: HEPARIN NA (PORCINE) 5,000 UNITS/ML 1ML VIAL SQ SCH ×3 (06:35→21:55)
[2021-02-05] MEDS: AMINO ACIDS/PROTEIN HYDROLYS 30 ML LIQUID.PKT PO SCH (09:05)
[2021-02-05] MEDS ORDERED: PT OWN MED DRAWER 7, Y5N ONE (09:15)
[2021-02-05] MEDS ORDERED: DEXTROSE 5%-WATER - 50 ML IVPB ONE (09:16)
[2021-02-05] MEDS ORDERED: cefTRIAXone SODIUM 1 GM VIAL ONE (09:16)
[2021-02-05 10:41] LABS: BLOOD UREA NITROGEN 31.8 mg/dL (7-18)
[2021-02-05 10:43] LABS: CALCIUM 8.3 mg/dL (8.5-10.1)
[2021-02-05 10:44] LABS: CREATININE 1.4 mg/dL (0.55-1.3)
[2021-02-05 10:45] LABS: TOT PROT 5.5 g/dl (6.4-8.2)
[2021-02-05 10:46] LABS: BILIRUBIN,TOTAL 0.2 mg/dL (0.2-1)
[2021-02-05] MEDS: levETIRAcetam 250 MG TABLET PO SCH ×2 (11:20→21:57)
[2021-02-05] MEDS: ASCORBIC ACID 500 MG TABLET (FP) PO SCH (11:20)
[2021-02-05] MEDS: busPIRone HCL 10 MG TABLET (FP) PO SCH ×2 (11:21→21:56)
[2021-02-05] MEDS: METOPROLOL TARTRATE 50 MG TABLET (FP) PO SCH ×3 (11:21→22:00)
[2021-02-05] MEDS: CEFTRIAXONE 1 GM in DEXTROSE 5%-WATER - 50 ML IVPB SCH (12:22)
[2021-02-05] MEDS: PANTOPRAZOLE SOD 40 MG SUSPENSION PACKET PO SCH (12:23)
[2021-02-05] MEDS: FAMOTIDINE 40 MG/5 ML ORAL SUSPENSION PEG SCH (12:50)
[2021-02-05] MEDS: AMOX TR/POT CLAV 500MG/125MG TABLETS (FP) PO SCH (21:55)
[2021-02-05] MEDS: MIRTAZAPINE 30 MG TABLET PO SCH (21:56)
[2021-02-06] MEDS: HEPARIN NA (PORCINE) 5,000 UNITS/ML 1ML VIAL SQ SCH ×2 (05:35→12:59)
[2021-02-06] MEDS: INSULIN SLIDING SCALE (NOVOLOG) 1 VIAL SQ SCH ×3 (06:30→15:43)
[2021-02-06] MEDS: INSULIN (LEVEMIR) 100 UNITS/ML UNITS SQ SCH (06:31)
[2021-02-06] MEDS ORDERED: PT OWN MED DRAWER 7, Y5N ONE (09:24)
[2021-02-06] MEDS: METOPROLOL TARTRATE 50 MG TABLET (FP) PO SCH (09:53)
[2021-02-06] MEDS: AMINO ACIDS/PROTEIN HYDROLYS 30 ML LIQUID.PKT PO SCH (09:53)
[2021-02-06] MEDS: FAMOTIDINE 40 MG/5 ML ORAL SUSPENSION PEG SCH (09:53)
[2021-02-06] MEDS: busPIRone HCL 10 MG TABLET (FP) PO SCH (09:53)
[2021-02-06] MEDS: levETIRAcetam 250 MG TABLET PO SCH (09:53)
[2021-02-06] MEDS: ASCORBIC ACID 500 MG TABLET (FP) PO SCH (09:53)
[2021-02-06 10:07] LABS: HEMATOCRIT 34.9 % (32.4-45.2); HEMOGLOBIN 11.4 GM/dL (10.7-15.3); MCH 29.1 pg (25.7-33.7); MCHC 32.7 g/dl (32.0-36.0); MEAN CELL VOLUME 88.9 fl (80-96); MEAN PLT VOLUME 10.1 fl (7.5-11.1); PLATELET COUNT 202 10^3/uL (134-434); RBC 3.92 M/mm3 (3.60-5.2); RDW 16.9 % (11.6-15.6); WHITE BLOOD COUNT 8.3 K/mm3 (4.0-10.0)
[2021-02-06 10:48] LABS: ANISOCYTOSIS 0; HELMET CELLS 0; HOWELL-JOLLY BODIES 0; MACROCYTOSIS 0; OVALOCYTE 0; PLATELET ESTIMATE NORMAL; ROULEAU 0; SICKELED CELLS 0; TARGET CELLS 0; TEAR DROP CELLS 0; TOXIC GRANULATION 0
[2021-02-06 10:52] LABS: CALCIUM 8.7 mg/dL (8.5-10.1)
[2021-02-06 10:56] LABS: CREATININE 1.3 mg/dL (0.55-1.3)
[2021-02-06] MEDS: AMOX TR/POT CLAV 500MG/125MG TABLETS (FP) PO SCH ×2 (10:59→17:31)
[2021-02-06 21:17] VITALS: BP 140/61; PULSE 83; TEMP 98.9
== END 2021-02-06 21:47 | DRG 871 ==
LOC: JER 01:31 → JERBED 04:54 → JICU 08:15 → J5S 02-03 20:08
PROVIDERS: ADMIT Internal Medicine; ATTEND Family Medicine
DX: A41.9 Sepsis, unspecified organism (principal); J96.01 Acute respiratory failure with hypoxia; J69.0 Pneumonitis due to inhalation of food and vomit; R65.21 Severe sepsis with septic shock; N17.9 Acute kidney failure, unspecified; E87.0 Hyperosmolality and hypernatremia; E87.2 Acidosis; N39.0 Urinary tract infection, site not specified; E11.22 Type 2 diabetes mellitus with diabetic chronic kidney disease; E11.649 Type 2 diabetes mellitus with hypoglycemia without coma; E11.65 Type 2 diabetes mellitus with hyperglycemia; E87.5 Hyperkalemia; I48.91 Unspecified atrial fibrillation; E03.9 Hypothyroidism, unspecified; E78.5 Hyperlipidemia, unspecified; I12.9 Hypertensive chronic kidney disease with stage 1 through stage 4 chronic kidney disease, or unspecified chronic kidney disease; K21.9 Gastro-esophageal reflux disease without esophagitis; N18.30 Chronic kidney disease, stage 3 unspecified; I95.9 Hypotension, unspecified; D72.829 Elevated white blood cell count, unspecified
CPT/HCPCS: 36415; 70450-TC; 71045-TC-FY; 76775-TC; 76937; 80048; 80053; 81003; 82010; 82272; 82803; 82962; 83036; 83605; 83735; 84100; 84439; 84443; 84484; 85025; 85027; 85610; 85730; 87040; 87086; 87186; 93005; 93010; 97116-GP; 97162-GP; 99291; C9803; J0131; J1644; U0003; U0005

== ENCOUNTER 2021-02-25 06:38 | Inpatient (IN) | payer OTHER ==
[2021-02-25] MEDS ORDERED: AMIODARONE HCL 150 MG/3 ML VIAL ONE (06:55)
[2021-02-25] MEDS ORDERED: SODIUM BICARBONATE 8.4% 50 MEQ/50 ML VIAL ONE (06:55)
[2021-02-25] MEDS ORDERED: CALCIUM CHLORIDE 1 GM/10 ML *DISP.SYRIN ONE (06:55)
[2021-02-25 06:56] VITALS: BMI 30.2
[2021-02-25] MEDS ORDERED: SODIUM CHLORIDE 2,177 ML IV ONE (06:58)
[2021-02-25] MEDS ORDERED: VANCOMYCIN 1 GM in D5W (PRE-DOCKED) 1,000 MG/250 ML IVPB ONE (06:59)
[2021-02-25] MEDS ORDERED: PIPERACILLIN/TAZOB 4.5 GM 4.5 GM in DEXTROSE 5%-WATER 100 ML IVPB ONE (06:59)
[2021-02-25] MEDS ORDERED: ACETAMINOPHEN 1000 MG/100 ML VIAL IVPB ONE (07:00)
[2021-02-25] MEDS ORDERED: NOREPINEPHRINE BITARTRATE 4 MG/4 ML ML IV ONE (07:21)
[2021-02-25] MEDS ORDERED: NOREPINEPHRINE D5W PREMIX 16,000 MCG/500 ML BAG IVPB SCH (07:30)
[2021-02-25 08:03] LABS: HEMOGLOBIN 10.2 GM/dL (10.7-15.3); MCH 30.2 pg (25.7-33.7); MCHC 29.3 g/dl (32.0-36.0); MEAN CELL VOLUME 103.1 fl (80-96); MEAN PLT VOLUME 11.2 fl (7.5-11.1); PLATELET COUNT 171 10^3/uL (134-434); RBC 3.39 M/mm3 (3.60-5.2); RDW 19.5 % (11.6-15.6); WHITE BLOOD COUNT 23.9 K/mm3 (4.0-10.0)
[2021-02-25 08:10] LABS: INR 1.11 (0.83-1.09)
[2021-02-25 08:13] LABS: ACTIVATED PTT 64.2 SECONDS (25.2-36.5)
[2021-02-25 08:24] LABS: CHLORIDE 99 mmol/L (98-107); SODIUM 146 mmol/L (136-145)
[2021-02-25] MEDS ORDERED: ACETAMINOPHEN INJECTION 100 ML IVPB ONE (08:25)
[2021-02-25 08:26] LABS: ALBUMIN 1.6 g/dl (3.4-5.0); ANION GAP 26 MMOL/L (8-16); CALCIUM 12.2 mg/dL (8.5-10.1); CO2 21 mmol/L (21-32)
[2021-02-25] MEDS ORDERED: VANCOMYCIN 1 GRAM (PRE-DOCKED) 1,000 MG/250 ML BAG IVPB ONE (08:26)
[2021-02-25] MEDS ORDERED: PIPERACILLIN/TAZOB 4.5 GM 4.5 GM/100 ML BAG IVPB ONE (08:26)
[2021-02-25 08:29] LABS: CREATININE 4.2 mg/dL (0.55-1.3)
[2021-02-25 08:31] LABS: BILIRUBIN,TOTAL 0.6 mg/dL (0.2-1); TOT PROT 4.6 g/dl (6.4-8.2)
[2021-02-25 08:32] LABS: ALK PHOS 172 U/L (45-117)
[2021-02-25 08:47] LABS: LACTIC ACID > 15.0 mmol/L (0.4-2.0)
[2021-02-25 08:52] VITALS: TEMP 102.7
[2021-02-25 09:35] LABS: EPI CELLS >36 /uL (0-25.1); HYALINE CASTS 1510 /uL (0-3.1); PH,URINE 5.5 (5.0-8.0); URINE APPEARANCE TURBID; URINE BACTERIA >9,000 /uL (0-1359); URINE BILIRUBIN NEGATIVE (NEGATIVE); URINE COLOR YELLOW; URINE GLUCOSE (UA) 2+ (NEGATIVE); URINE KETONE NEGATIVE (NEGATIVE); URINE LEUK ESTERASE 3+ (NEGATIVE); URINE NITRITE POSITIVE (NEGATIVE); URINE PROTEIN 2+ (NEGATIVE); URINE UROBILINOGEN 0.2 mg/dL (0.2-1.0); URINE WBC 20564 /uL (0-25.8)
[2021-02-25 09:55] LABS: BLOOD UREA NITROGEN 160.8 mg/dL (7-18); GLUCOSE,RANDOM 844 mg/dL (74-106); SGOT/AST > 2002 U/L (15-37); SGPT/ALT 1879 U/L (13-61)
[2021-02-25] MEDS ORDERED: VASOPRESSIN 40 UNITS/100 ML BAG IV SCH (10:00)
[2021-02-25] MEDS ORDERED: VASOPRESSIN 20 UNITS/ML VIAL IV ONE (10:23)
[2021-02-25] MEDS ORDERED: INSULIN REGULAR HUMAN 100 UNITS/ML *VIAL IVPUSH ONE (10:49)
[2021-02-25 11:21] LABS: URINE RBC 194.7 /uL (0-23.9)
[2021-02-25 11:27] LABS: LACTIC ACID > 15.0 mmol/L (0.4-2.0)
[2021-02-25] MEDS ORDERED: MUPIROCIN 2% TOPICAL OINTMENT FOR DECOLONIZATION NS SCH (12:15)
[2021-02-25 12:39] VITALS: BP 62/16; PULSE 36
[2021-02-25 13:07] LABS: MACROCYTOSIS 1+
[2021-02-25 13:09] LABS: PLATELET ESTIMATE NORMAL
[2021-02-25 15:45] LABS: YEAST NONE SEEN (NEGATIVE)
[2021-02-25] MEDS ORDERED: CHLORHEXIDINE GLUCONATE 4% CLEANSER FOR DECOLONIZATION TP SCH (22:00)
== END 2021-02-25 12:11 | disposition expired | DRG 871 ==
LOC: JER 06:38 → JERBED 10:11 → JICU 11:28
PROVIDERS: ADMIT Internal Medicine Pulmonary Disease; ATTEND Internal Medicine Pulmonary Disease
PROC: 5A1935Z Respiratory Ventilation, Less than 24 Consecutive Hours (ICD-10-PCS; principal; 2021-02-25)
PROC: 0BH17EZ Insertion of Endotracheal Airway into Trachea, Via Natural or Artificial Opening (ICD-10-PCS; 2021-02-25)
PROC: 05H533Z Insertion of Infusion Device into Right Subclavian Vein, Percutaneous Approach (ICD-10-PCS; 2021-02-25)
DX: A41.9 Sepsis, unspecified organism (principal); J96.01 Acute respiratory failure with hypoxia; R65.21 Severe sepsis with septic shock; K72.00 Acute and subacute hepatic failure without coma; N17.9 Acute kidney failure, unspecified; E87.2 Acidosis; G93.1 Anoxic brain damage, not elsewhere classified; N39.0 Urinary tract infection, site not specified; I24.8 Other forms of acute ischemic heart disease; I10 Essential (primary) hypertension; E78.5 Hyperlipidemia, unspecified; I48.91 Unspecified atrial fibrillation; Z79.01 Long term (current) use of anticoagulants; E11.9 Type 2 diabetes mellitus without complications; E03.9 Hypothyroidism, unspecified; K21.9 Gastro-esophageal reflux disease without esophagitis; Z79.4 Long term (current) use of insulin; E66.9 Obesity, unspecified; Z68.30 Body mass index [BMI] 30.0-30.9, adult
CPT/HCPCS: 36415; 71045-TC-FY; 80053; 81003; 83605; 84484; 85025; 85610; 85730; 87040; 87086; 87186; 87804; 93005; 93010; 99291; 99292; C9803; J0131; J3490; U0003; U0005